=== PATIENT | female | born 1960 | race Caucasian/White ===

== ENCOUNTER 2017-04-20 09:23 | Outpatient (POV) | payer MEDICAID, SELFPAY | END 2017-04-20 13:57 | disposition home or self-care (01) | PROVIDERS: Family Provider Family Medicine; PCP Family Medicine; Visit Provider Podiatrist | DX: M20.42 Other hammer toe(s) (acquired), left foot (principal); M20.41 Other hammer toe(s) (acquired), right foot; L84 Corns and callosities; M20.21 Hallux rigidus, right foot; M20.32 Hallux varus (acquired), left foot; M25.572 Pain in left ankle and joints of left foot; M25.571 Pain in right ankle and joints of right foot | CPT/HCPCS: 99203; 11055; 73630 ==

== ENCOUNTER → 2017-05-08 | Outpatient (POV) | payer MEDICAID, SELFPAY | PROVIDERS: Visit Provider Podiatrist ==

== ENCOUNTER → 2017-06-12 10:15 | Outpatient (POV) | payer MEDICAID, SELFPAY | PROVIDERS: Family Provider Family Medicine; PCP Family Medicine; Visit Provider Podiatrist | DX: Z00.00 Encounter for general adult medical examination without abnormal findings (principal) ==

== ENCOUNTER 2018-10-31 20:59 | Observation (INO) ==
[2018-10-31 21:20] LABS: Basophils # 0.1 K/mm3 (0-0.2); Basophils % 0.9 % (0.1-2.0); Eosinophils # 0.5 K/mm3 (0.0-0.4); Hematocrit 40.4 % (37.0-47.0); Hemoglobin 12.6 g/dL (12.2-16.2); Lymphocytes # 2.4 K/mm3 (0.7-4.5); Lymphocytes % 24.4 % (10-50); Mean Corpuscular HGB Conc 31.2 g/dL (31.8-35.4); Mean Corpuscular Volume 80.1 fl (81-99); Mean Platelet Volume 8.5 fl (7.4-10.4); Monocytes # 0.5 K/mm3 (0.1-1.0); Monocytes % 5.1 % (1.7-9.3); Neutrophils # 6.4 K/mm3 (1.8-7.8); Neutrophils % 64.6 % (37.0-80.0); Platelet Count 244 K/mm3 (142-424); Red Blood Count 5.04 M/mm3 (4.20-5.40); Red Cell Distribution Width 15.1 % (11.5-17.5); White Blood Count 9.9 K/mm3 (4.8-10.8)
[2018-10-31 21:35] LABS: Anion Gap 13.2 mEq/L (5-15); Blood Urea Nitrogen 18 mg/dL (7-18); Calcium 8.8 mg/dL (8.5-10.1); Carbon Dioxide 29 mmol/L (21.0-32.0); Chloride 106 mmol/L (98-107); Glucose 130 mg/dL (74-106); Sodium 144 mmol/L (136-145)
--- NOTE | 2018-10-31 22:12 | Emergency Department Note ---
ED Disposition Clinical Impression: Obesity (BMI 30.0-34.9) Chest pain Qualifiers: Chest pain type: precordial pain Qualified Code(s): R07.2 - Precordial pain Disposition: Admitted as Observation Condition on Discharge: Good Referrals: Provider,Referral, [Referring] - - Critical Care Critical Care Time: No Attestation: On 10/31/18, the high probability of a clinically significant, sudden or life threatening deterioration of the following system(s) required my full and direct attention, intervention and personal management. The time I documented below is in addition to time spent performing reported procedures but includes the following listed in this critical care notation. Medical Decision Making - Medical Records Medical records reviewed: Yes: I reviewed the patient's medical records. - Moose Inquiry Pt receiving controlled substance: No Vital Signs: 10/31/18 20:59 Temperature 98.0 F Temperature Source Oral Pulse Rate [Right Brachial] 90 Respiratory Rate 20 Blood Pressure [Right Arm] 128/62 Blood Pressure Mean [Right Arm] 84 Blood Pressure Source [Right Arm] Automatic Cuff Blood Pressure Position [Right Arm] Sitting 02 Sat by Pulse Oximetry 98 Oxygen Delivery Method Room Air - Lab Data Lab results reviewed: Yes: I reviewed the patient's lab results. Lab Results 10/31/18 21:10: WBC 9.9, RBC 5.04, Hgb 12.6, Hct 40.4, MCV 80.1 L, MCH 25.0 L, MCHC 31.2 L, RDW 15.1, Plt Count 244, MPV 8.5, Neut % (Auto) 64.6, Lymph % (Auto) 24.4, [place] % (Auto) 5.1, Eos % (Auto) 5.0, Baso % (Auto) 0.9, Neut # (Au to) 6.4, Lymph # (Auto) 2.4, [place] # (Auto) 0.5, Eos # (Auto) 0.5 H, Baso # (Auto) 0.1 10/31/18 21:10: Sodium 144, Potassium 4.2, Chloride 106, Carbon Dioxide 29, Anion Gap 13.2, BUN 18, Creatinine 0.85, Estimated Creat Clear 102, Estimated GFR 68, Est GFR ( Amer) 83, Glucose 130 H, Calcium 8.8, Troponin I < 0.02 Result diagrams: 10/31/18 21:10 10/31/18 21:10 Orders (Tests/Meds): ED MEDICATIONS Discontinued Medications Generic Name Dose Route Start Last Admin Trade Name Maricruz PRN Reason Stop Dose Admin Aspirin 324 mg 10/31/18 21:06 10/31/18 21:09 Aspirin 81mg Chewable Tablet PO 10/31/18 21:07 324 mg ONCE ONE Administration ORDERS Category Date Time Status XR chest 2V Stat Exams 10/31/18 21:06 Taken Troponin I Q3H Lab 11/01/18 00:15 Ordered Troponin I Q3H Lab 11/01/18 03:15 Ordered ECG Request by /Aida Stat Y 10/31/18 21:06 Ordered - Radiology Data #1 Image(s): Chest Image Reviewed: Yes I reviewed the patient's radiology image Preliminary Findings: Normal/NAD - ECG Data Tracing #1 Normal Sinus Rhythm: Yes Ischemic changes: non-specific ST-T wave changes - Physician Consults Physician Consulted: nathen Reason -: Admission Chest Pain HPI - General Chief Complaint: Chest Pain Stated Complaint: CP Time Seen by Provider: 10/31/18 21:40 Mode of Arrival: Ambulatory Source of Information: Patient, Relative, Medical Record Limitations: No Limitations Description of Symptoms (Recalled from ER Triage Doc. by RN): Pt c/o cp with neck , jaw and arm pain, and SOA that started about 15 mins ago that lasted about 10 mins. No other symptoms reported at this time. - History of Present Illness HPI narrative: acute onset of chest pain tonight lasted about 45 min with rad to jaw - MD complaint: chest pain indicative of cardiac Onset (ago): hour(s) Duration: now resolved Activity at onset: during rest Pain location: left chest Severity: moderate Quality: tightness Pain radiation: jaw/teeth Risk Factors for CAD: Hypertension, Family Hx of CAD Treatments prior to or on arrival for Cardiac Chest Pain: none - YELENA Score for Non-Stemi Age of Patient: 50-59 years old Heart Rate: 90-109 bpm Systolic Blood Pressure: 120-139 mmhg Serum Creatinine: 0.80-1.19 mg/dl CHF [place] Class: I-No CHF Other Risk Factors: None Non-Stemi Risk Score: 97 - Related Data On Oral Contraceptives: No Home Medications Medication Instructions Recorded Confirmed famotidine 20 mg tablet 20 mg PO QDAY 05/28/17 10/31/18 Venlafaxine HCl [Effexor Xr] 75 mg PO DAILY 10/31/18 10/31/18 Allergies Allergy/AdvReac Type Severity Reaction Status Date / Time No Known Allergies Allergy Unverified 11/10/17 15:52 [facility] History - Hepatitis A Screen Drug use history?: No High risk sexual behaviors?: No History of sexually transmitted infection?: No Currently employed?: No Childcare worker?: No Do you have indoor plumbing?: Yes Do you have electricity?: Yes Attestation statement:: This patient has been screened for Hepatitis A risk factors. I have reviewed the patient's past medical history: Yes Medical History: Reports:: Gastroesophageal Reflux Disease(GERD) Denies:: Aneurysm, Asthma, Atrial Fibrillation, Cancer, Congestive Heart Failure, Chronic Obstructive Pulmonary Disease (COPD), Coronary Artery Disease, Cerebrovascular Accident, Diabetes Mellitus Type 1, Diabetes Mellitus Type 2, Hyperlipidemia, Hypertension, Migraine, Myocardial Infarction Other Medical History: Denies: Arthritis, Cataracts, Glaucoma, Hypothyroidism, Thyroid Disease Laterality Cases: Bilateral: Tonsillectomy Other Surgeries: Yes: Other Amputation: No Fractures: No Comment: eye surgery as a child - Social History Smoking Status: Never smoker Tobacco Type: cigarettes Alcohol Intake: never Alcohol Intake Frequency:: other Occupational Status: employed Housing: house - Psychiatric History Expresses thoughts of harming self/others: None Suicide Plan Description: No Plan Family Hx:: Diabetes, Stroke, Hyperlipidemia, Hypertension ROS Obtained: Yes All systems reviewed & no additional complaints - Constitutional Constitutional: Denies fever(s) - Eyes Eyes: Denies change in vision - ENT Ears, Nose, Mouth, and Throat: Denies sore throat - Cardiovascular Cardiovascular: Reports as per HPI, Reports chest pain, Reports radiating jaw, neck or arm pain, Denies rapid heart rate - Respiratory Respiratory: No cough - Gastrointestinal Gastrointestingal: Denies: abdominal pain - Genitourinary Female Genitourinary: Denies hematuria - Musculoskeletal Musculoskeletal: Denies joint pain - Integumentary/Breasts Skin/Breast: Denies rash - Neurologic Neurologic: Denies seizure-like activity Physical Exam - General General appearance: alert, obese - Head Head exam: normocephalic - Eye Eye exam: Present: PERRL, EOMI. Absent: scleral icterus - ENT ENT exam: Present: mucous membranes moist - Neck Neck exam: Present: trachea midline - Respiratory Respiratory exam: Present: normal lung sounds bilaterally. Absent: respiratory distress - Cardiovascular Cardiovascular exam: Present: regular rate, systolic murmur - Abdominal Exam Abdominal exam: Present: soft - Extremities Exam Extremities exam: Present: full ROM. Absent: calf tenderness - Neurological Exam Neurological exam: Present: alert, oriented X3, CN II-XII intact - Psychiatric Psychiatric exam: Present: normal affect - Skin Skin exam: Absent: rash
[2018-11-01 06:28] LABS: Basophils # 0.1 K/mm3 (0-0.2); Basophils % 0.6 % (0.1-2.0); Eosinophils # 0.5 K/mm3 (0.0-0.4); Eosinophils % 5.3 % (0.1-12.0); Hematocrit 38.4 % (37.0-47.0); Hemoglobin 11.6 g/dL (12.2-16.2); Lymphocytes # 2.1 K/mm3 (0.7-4.5); Lymphocytes % 24.4 % (10-50); Mean Corpuscular HGB Conc 30.3 g/dL (31.8-35.4); Mean Corpuscular Volume 79.6 fl (81-99); Mean Platelet Volume 8.4 fl (7.4-10.4); Monocytes # 0.5 K/mm3 (0.1-1.0); Monocytes % 5.9 % (1.7-9.3); Neutrophils # 5.5 K/mm3 (1.8-7.8); Neutrophils % 63.8 % (37.0-80.0); Platelet Count 220 K/mm3 (142-424); Red Blood Count 4.83 M/mm3 (4.20-5.40); White Blood Count 8.6 K/mm3 (4.8-10.8)
[2018-11-01 07:08] LABS: Anion Gap 10.4 mEq/L (5-15); Calcium 8.2 mg/dL (8.5-10.1); Chol/HDL Ratio 3.1 (1-3.5)
--- NOTE | 2018-11-01 07:26 | Pharmacy Consult Notes ---
[facility] Pharmacy VTE Monitoring - Patient Demographics Admission date: 10/31/18 Report Date: 11/01/18 Time: 07:26 Allergies/Adverse Reactions: Patient Allergies No Known Allergies Allergy (Unverified 11/10/17 15:52) Height: 1.65 m Weight: 94.347 kg Patient Problems: Current Active Problems (Updated 10/31/18 @ 22:21 by Raoul Alonso MD) Chest pain (Acute) Obesity (BMI 30.0-34.9) (Acute) - VTE Risk Labs: VTE Related Lab Results Hgb 11.6 g/dL (12.2-16.2) L 11/01/18 05:45 Hct 38.4 % (37.0-47.0) 11/01/18 05:45 Plt Count 220 K/mm3 (142-424) 11/01/18 05:45 BUN 16 mg/dL (7-18) 11/01/18 05:45 Creatinine 0.64 mg/dL (0.55-1.02) D 11/01/18 05:45 Estimated Creat Clear 141 mL/min (50-200) 11/01/18 05:45 Was VTE Risk Assessment Performed: No VTE Score: 3 VTE Risk Level: Low Risk - Prophylaxis VTE Prophylaxis Ordered?: Yes Types of VTE Prophylaxis: TEDS Knee High Location of Applied Device: Bilateral Lower Extremeties - VTE Diagnosis Confirmed Treatment or plan recommended: Continue Current Treatment
--- NOTE | 2018-11-01 07:35 | Consult Report ---
History of Present Illness Consult date: 11/01/18 Requesting physician: Michelle Head Consult reason: chest pain Chief complaint: chest pain Additional Medical History:: 1. Family history of coronary artery disease in her father at age 60 and his brothers 2. Exertional chest pain with elevated troponins, 10/31/2018 3. GERD History of present illness: 58-year-old white female with history of gastroesophageal reflux disease presented to the emergency department for evaluation of left-sided chest pain with radiation to the jaw and left shoulder. Patient describes jaw pain is like a toothache. Symptoms occurred while out walking her dog or trying to get her dog to come in. In route to the hospital symptoms resolved. ER work-up included EKG with no acute changes and initial troponin that was normal. Nithin moran does relate history of exertional symptoms in the past but not to this degree. She was kept overnight with additional troponins increased and mildly positive. This morning patient describes no further episodes of discomfort overnight except for severe headache. Nitroglycerin paste has been removed with orders for Tylenol to be given. [facility] History Medical History: Reports:: Gastroesophageal Reflux Disease(GERD) Denies:: Aneurysm, Asthma, Atrial Fibrillation, Cancer, Congestive Heart Failure, Chronic Obstructive Pulmonary Disease (COPD), Coronary Artery Disease, Cerebrovascular Accident, Diabetes Mellitus Type 1, Diabetes Mellitus Type 2, Hyperlipidemia, Hypertension, Migraine, MRSA, Myocardial Infarction *Have you ever received a pneumonia vaccine?: No *Have you received a flu vaccine this season?: No Other Medical History: Denies: Arthritis, Cataracts, Glaucoma, Hypothyroidism, Thyroid Disease Laterality Cases: Bilateral: Tonsillectomy Other Surgeries: Yes: Other Amputation: No Fractures: No - *Social History Educational Level: Completed High School Smoking Status: Never smoker Tobacco Type: cigarettes Alcohol Intake: never Alcohol Intake Frequency:: other *Occupational Status:: employed Housing: house *Travel in the last 8 weeks: None - Psychiatric History Expresses thoughts of harming self/others: None Suicide Plan Description: No Plan Family Hx:: Diabetes, Stroke, Hyperlipidemia, Hypertension Meds Home Medications Medication Instructions Recorded Confirmed Type famotidine 20 mg tablet 20 mg PO DAILY 05/28/17 11/01/18 History Venlafaxine HCl [Effexor Xr] 75 mg PO DAILY 10/31/18 10/31/18 History Naproxen 500 mg PO BID 11/01/18 11/01/18 History hydrOXYzine HCl [Hydroxyzine HCl] 25 mg PO HS 11/01/18 11/01/18 History Allergies Allergy/AdvReac Type Severity Reaction Status Date / Time No Known Allergies Allergy Unverified 11/10/17 15:52 Review of Systems - *Cardiovascular Reports chest pain, Denies shortness of breath - *Respiratory Denies shortness of breath - *Gastrointestinal Denies nausea, Denies vomiting - *Genitourinary Denies blood in urine - *Musculoskeletal Denies joint pain, Denies back pain - *Neurologic Denies seizure-like activity Exam Vital signs and Labs for Last 24 Hours: Temp Pulse Resp BP Pulse Ox 97.9 F 68 18 139/80 97 11/01/18 04:00 11/01/18 04:00 11/01/18 04:00 11/01/18 04:00 11/01/18 04:00 Laboratory Results - last 24 hr 10/31/18 21:10: WBC 9.9, RBC 5.04, Hgb 12.6, Hct 40.4, MCV 80.1 L, MCH 25.0 L, MCHC 31.2 L, RDW 15.1, Plt Count 244, MPV 8.5, Neut % (Auto) 64.6, Lymph % (Auto) 24.4, [place] % (Auto) 5.1, Eos % (Auto) 5.0, Baso % (Auto) 0.9, Neut # (Auto) 6.4, Lymph # (Auto) 2.4, [place] # (Auto) 0.5, Eos # (Auto) 0.5 H, Baso # (Auto) 0.1 10/31/18 21:10: Sodium 144, Potassium 4.2, Chloride 106, Carbon Dioxide 29, Anion Gap 13.2, BUN 18, Creatinine 0.85, Estimated Creat Clear 102, Estimated GFR 68, Est GFR ( Amer) 83, Glucose 130 H, Calcium 8.8, Troponin I < 0.02 11/01/18 00:25: Troponin I 0.07 H 11/01/18 03:05: Troponin I 0.09 H 11/01/18 05:45: WBC 8.6, RBC 4.83, Hgb 11.6 L, Hct 38.4, MCV 79.6 L, MCH 24.1 L, MCHC 30.3 L, RDW 15.0, Plt Count 220, MPV 8.4, Neut % (Auto) 63.8, Lymph % (Auto) 24.4, [place] % (Auto) 5.9, Eos % (Auto) 5.3, Baso % (Auto) 0.6, Neut # (Auto) 5.5, Lymph # (Auto) 2.1, [place] # (Auto) 0.5, Eos # (Auto) 0.5 H, Baso # (Auto) 0.1 11/01/18 05:45: Sodium 141, Potassium 4.4, Chloride 108 H, Carbon Dioxide 27, Anion Gap 10.4, BUN 16, Creatinine 0.64 D, Estimated Creat Clear 141, Estimated GFR 95, Est GFR ( Amer) 115 D, Glucose 90 D, Calcium 8.2 L, Magnesium 2.1, Troponin I 0.09 H, Triglycerides 38, Cholesterol 169, LDL Cholesterol 107, VLDL Cholesterol 8, HDL Cholesterol 54, Cholesterol/HDL Ratio 3.1 I & O for Last 24 hours: Intake & Output 10/29/18 10/30/18 10/31/18 11/01/18 11:59 11:59 11:59 11:59 Weight 208 lb - *Routine HEENT Exam Head: Present: normocephalic Eye: Present: EOMI, PERRL ENT: Present: mucous membranes moist - *Routine Neck Exam Present: supple. Absent: JVD, carotid bruit - *Routine Respiratory Exam Present: CTA bilaterally. Absent: accessory muscle use, rales, rhonchi, wheezes - *Routine Cardiovascular Exam Present: RRR. Absent: murmur, gallop, rubs - *Routine Abdominal Exam Present: soft. Absent: tenderness, distended, guarding - *Routine Extremities Exam Absent: edema, calf tenderness - *Routine Neurological Exam Present: alert, oriented X3, moving all extremities Assessment and Plan (1) Chest pain Current visit: Yes Status: Acute Qualifiers: Chest pain type: precordial pain Qualified Code(s): R07.2 - Precordial pain Category: Medical Code(s): R07.9 - Chest pain, unspecified (2) Family history of early CAD Current visit: Yes Status: Acute Category: Medical Code(s): Z82.49 - Family history of ischemic heart disease and other diseases of the circulatory system (3) Elevated troponin Current visit: Yes Status: Acute Category: Medical Code(s): R74.8 - Abnormal levels of other serum enzymes (4) Obesity (BMI 30.0-34.9) Current visit: Yes Status: Acute Category: Medical Code(s): E66.9 - Obesity, unspecified - Assessment and plan all Dx Assessment and Plan for all problems:: 1. In patient with elevated troponins, exertional angina symptoms that resolve with rest and family history of early coronary artery disease, would recommend proceeding with left heart catheterization today. Patient discussed her options with Dr. Head and they have decided to proceed with [facility]. 2. Echocardiogram has been performed this morning with results pending at this time. 3. Recommend aspirin 81 mg daily along with low-dose beta-angelina therapy for antianginal effect.
--- NOTE | 2018-11-01 09:48 | History & Physical Report ---
*Admission Date: 10/31/18 *Chief complaint: Chest pain *History of present illness: Ms. Bates is a 58-year-old female with a history of GERD and depression who presented to [facility] emergency room after experiencing a burning-like left sided chest pain, jaw and left arm pain when walking her dog. She states she had some shortness of breath. The pain lasted about 15 minutes and was resolved on the way to the emergency room. With evaluation in the emergency room she had some ST-T wave changes and was admitted for further evaluation and treatment with a cardiology consult. This a.m. patient denies chest discomfort and is mainly complaining of a headache which she attributes to the Nitropaste. She feels her breathing is satisfactory. She denies palpitations. She has occasional leg edema. She has been seen by cardiology and a heart cath is planned. [facility] History Medical History: Reports:: Depression, Gastroesophageal Reflux Disease(GERD) Denies:: Aneurysm, Asthma, Atrial Fibrillation, Cancer, Congestive Heart Failure, Chronic Obstructive Pulmonary Disease (COPD), Coronary Artery Disease, Cerebrovascular Accident, Diabetes Mellitus Type 1, Diabetes Mellitus Type 2, Hyperlipidemia, Hypertension, Migraine, MRSA, Myocardial Infarction *Have you ever received a pneumonia vaccine?: No *Have you received a flu vaccine this season?: No Other Medical History: Denies: Arthritis, Cataracts, Glaucoma, Hypothyroidism, Thyroid Disease Laterality Cases: Bilateral: Tonsillectomy Other Surgeries: Yes: Other Amputation: No Fractures: No - *Social History Educational Level: Completed High School Smoking Status: Never smoker Alcohol Intake: never Alcohol Intake Frequency:: other *Occupational Status:: employed Housing: house *Travel in the last 8 weeks: None - Psychiatric History Expresses thoughts of harming self/others: None Suicide Plan Description: No Plan Family Hx:: Diabetes, Stroke, Hyperlipidemia, Hypertension Review of Systems - Constitutional Reports headache(s), Denies body ache(s), Denies fever(s) - Eyes Denies change in vision - ENT Reports facial pain (Left jaw), Denies ear pain, Denies sore throat - *Cardiovascular Reports chest pain, Reports shortness of breath, Reports leg swelling, Reports radiating jaw, neck or arm pain, Denies irregular heart rhythm - *Respiratory Reports shortness of breath, Denies chest congestion, Denies cough, Denies coughing up blood, Denies wheezing - *Gastrointestinal Reports nausea, Denies abdominal pain, Denies vomiting - *Genitourinary Denies difficulty urinating - *Musculoskeletal Reports joint pain (Right shoulder), Denies abnormal walking, Denies muscle weakness - *Neurologic Reports headache(s), Denies seizure-like activity Meds Home Medications Medication Instructions Recorded Confirmed Type famotidine 20 mg tablet 20 mg PO QID 05/28/17 11/01/18 History Venlafaxine HCl [Effexor Xr] 75 mg PO DAILY 10/31/18 10/31/18 History Mupirocin [Bactroban 2% Ointment 1 applicatio TP TID 11/01/18 11/01/18 History 22gm tube] Naproxen 500 mg PO BID 11/01/18 11/01/18 History hydrOXYzine HCl [Hydroxyzine HCl] 25 mg PO HS 11/01/18 11/01/18 History Allergies Allergy/AdvReac Type Severity Reaction Status Date / Time No Known Allergies Allergy Unverified 11/10/17 15:52 Exam Vital signs and Labs for Last 24 Hours: Temp Pulse Resp BP Pulse Ox 97.6 F 69 18 146/89 H 98 11/01/18 08:00 11/01/18 08:00 11/01/18 08:00 11/01/18 08:00 11/01/18 08:49 Laboratory Results - last 24 hr 10/31/18 21:10: WBC 9.9, RBC 5.04, Hgb 12.6, Hct 40.4, MCV 80.1 L, MCH 25.0 L, MCHC 31.2 L, RDW 15.1, Plt Count 244, MPV 8.5, Neut % (Auto) 64.6, Lymph % (Auto) 24.4, [place] % (Auto) 5.1, Eos % (Auto) 5.0, Baso % (Auto) 0.9, Neut # (Auto) 6.4, Lymph # (Auto) 2.4, [place] # (Auto) 0.5, Eos # (Auto) 0.5 H, Baso # (Auto) 0.1 10/31/18 21:10: Sodium 144, Potassium 4.2, Chloride 106, Carbon Dioxide 29, Anion Gap 13.2, BUN 18, Creatinine 0.85, Estimated Creat Clear 102, Estimated GFR 68, Est GFR ( Amer) 83, Glucose 130 H, Calcium 8.8, Troponin I < 0.02 11/01/18 00:25: Troponin I 0.07 H 11/01/18 03:05: Troponin I 0.09 H 11/01/18 05:45: WBC 8.6, RBC 4.83, Hgb 11.6 L, Hct 38.4, MCV 79.6 L, MCH 24.1 L, MCHC 30.3 L, RDW 15.0, Plt Count 220, MPV 8.4, Neut % (Auto) 63.8, Lymph % (Auto) 24.4, [place] % (Auto) 5.9, Eos % (Auto) 5.3, Baso % (Auto) 0.6, Neut # (Auto) 5.5, Lymph # (Auto) 2.1, [place] # (Auto) 0.5, Eos # (Auto) 0.5 H, Baso # (Auto) 0.1 11/01/18 05:45: Sodium 141, Potassium 4.4, Chloride 108 H, Carbon Dioxide 27, Anion Gap 10.4, BUN 16, Creatinine 0.64 D, Estimated Creat Clear 141, Estimated GFR 95, Est GFR ( Amer) 115 D, Glucose 90 D, Calcium 8.2 L, Magnesium 2.1, Troponin I 0.09 H, Triglycerides 38, Cholesterol 169, LDL Cholesterol 107, VLDL Cholesterol 8, HDL Cholesterol 54, Cholesterol/HDL Ratio 3.1 11/01/18 09:25: Urine HCG, Qual Negative I & O for Last 24 hours: Intake & Output 10/29/18 10/30/18 10/31/18 11/01/18 11:59 11:59 11:59 11:59 Intake Total 0 / 0 Balance 0 / 0 Weight 208 lb Radiology Reports for the Last 24 Hours: 10/31/2018 chest x-ray IMPRESSION: 1. Stones and sludge within the gallbladder with thickened wall. 2. Complex right renal cyst measuring 15 mm with calcification or stone along the posterior aspect of the cyst - Constitutional no acute distress Comments: Appears uncomfortable due to headache - *Routine HEENT Exam Head: Present: normocephalic, atraumatic Eye: Present: PERRL ENT: Present: mucous membranes moist, oropharynx clear - *Routine Neck Exam Present: supple. Absent: carotid bruit, lymphadenopathy, thyromegaly - *Routine Respiratory Exam Present: CTA bilaterally (Anteriorly and posteriorly) - *Routine Cardiovascular Exam Present: RRR - *Routine Abdominal Exam Present: soft, normoactive bowel sounds. Absent: tenderness - *Routine Extremities Exam Absent: edema, calf tenderness - *Routine Neurological Exam Present: alert, oriented X3 Assessment and Plan (1) Chest pain Current visit: Yes Status: Acute Qualifiers: Chest pain type: precordial pain Qualified Code(s): R07.2 - Precordial pain Category: Medical Code(s): R07.9 - Chest pain, unspecified (2) Family history of early CAD Current visit: Yes Status: Acute Category: Medical Code(s): Z82.49 - Family history of ischemic heart disease and other diseases of the circulatory system (3) Elevated troponin Current visit: Yes Status: Acute Category: Medical Code(s): R74.8 - Abnormal levels of other serum enzymes (4) Obesity (BMI 30.0-34.9) Current visit: Yes Status: Acute Category: Medical Code(s): E66.9 - Obesity, unspecified (5) GERD (gastroesophageal reflux disease) Current visit: Yes Status: Chronic Category: Medical Code(s): K21.9 - Gastro-esophageal reflux disease without esophagitis (6) Depression Current visit: Yes Status: Chronic Category: Medical Code(s): F32.9 - Major depressive disorder, single episode, unspecified - Assessment and plan all Dx Assessment and Plan for all problems:: Patient has been seen by cardiology this a.m. and will have a cardiac cath
--- NOTE | 2018-11-01 13:58 | History & Physical Report ---
*Admission Date: 10/31/18 *History of present illness: Ms. Bates is a 58-year-old female with a history of GERD and depression who pre sented to [facility] emergency room after experiencing a burning-like chest pain, jaw and left arm pain when walking her dog. She states she had some shortness of breath. The pain lasted about 15 minutes and was resolved on the way to the emergency room. With evaluation in the emergency room she had some ST-T wave changes and was admitted for further evaluation and treatment with a cardiology consult. This a.m. patient denies chest discomfort and is mainly complaining of a headache which she attributes to the Nitropaste. She feels her breathing is satisfactory. She denies palpitations. She has occasional leg edema. [facility] History Medical History: Reports:: Gastroesophageal Reflux Disease(GERD) Denies:: Aneurysm, Asthma, Atrial Fibrillation, Cancer, Congestive Heart Failure, Chronic Obstructive Pulmonary Disease (COPD), Coronary Artery Disease, Cerebrovascular Accident, Diabetes Mellitus Type 1, Diabetes Mellitus Type 2, Hyperlipidemia, Hypertension, Migraine, MRSA, Myocardial Infarction *Have you ever received a pneumonia vaccine?: No *Have you received a flu vaccine this season?: No Other Medical History: Denies: Arthritis, Cataracts, Glaucoma, Hypothyroidism, Thyroid Disease Laterality Cases: Bilateral: Tonsillectomy Other Surgeries: Yes: Other Amputation: No Fractures: No - *Social History Educational Level: Completed High School Smoking Status: Never smoker Tobacco Type: cigarettes Alcohol Intake: never Alcohol Intake Frequency:: other *Occupational Status:: employed Housing: house *Travel in the last 8 weeks: None - Psychiatric History Expresses thoughts of harming self/others: None Suicide Plan Description: No Plan Family Hx:: Diabetes, Stroke, Hyperlipidemia, Hypertension Review of Systems - *Neurologic Denies seizure-like activity Meds Home Medications Medication Instructions Recorded Confirmed Type famotidine 20 mg tablet 20 mg PO QID 05/28/17 11/01/18 History Venlafaxine HCl [Effexor Xr] 75 mg PO DAILY 10/31/18 10/31/18 History Mupirocin [Bactroban 2% Ointment 1 applicatio TP TID 11/01/18 11/01/18 History 22gm tube] Naproxen 500 mg PO BID 11/01/18 11/01/18 History hydrOXYzine HCl [Hydroxyzine HCl] 25 mg PO HS 11/01/18 11/01/18 History Allergies Allergy/AdvReac Type Severity Reaction Status Date / Time No Known Allergies Allergy Unverified 11/10/17 15:52 Exam Vital signs and Labs for Last 24 Hours: Temp Pulse Resp BP Pulse Ox 97.6 F 104 H 22 129/54 L 99 11/01/18 08:00 11/01/18 13:25 11/01/18 13:25 11/01/18 13:25 11/01/18 13:25 Laboratory Results - last 24 hr 10/31/18 21:10: WBC 9.9, RBC 5.04, Hgb 12.6, Hct 40.4, MCV 80.1 L, MCH 25.0 L, MCHC 31.2 L, RDW 15.1, Plt Count 244, MPV 8.5, Neut % (Auto) 64.6, Lymph % (Auto) 24.4, [place] % (Auto) 5.1, Eos % (Auto) 5.0, Baso % (Auto) 0.9, Neut # (Auto) 6.4, Lymph # (Auto) 2.4, [place] # (Auto) 0.5, Eos # (Auto) 0.5 H, Baso # (Auto) 0.1 10/31/18 21:10: Sodium 144, Potassium 4.2, Chloride 106, Carbon Dioxide 29, Anion Gap 13.2, BUN 18, Creatinine 0.85, Estimated Creat Clear 102, Estimated GFR 68, Est GFR ( Amer) 83, Glucose 130 H, Calcium 8.8, Troponin I < 0.02 11/01/18 00:25: Troponin I 0.07 H 11/01/18 03:05: Troponin I 0.09 H 11/01/18 05:45: WBC 8.6, RBC 4.83, Hgb 11.6 L, Hct 38.4, MCV 79.6 L, MCH 24.1 L, MCHC 30.3 L, RDW 15.0, Plt Count 220, MPV 8.4, Neut % (Auto) 63.8, Lymph % (Auto) 24.4, [place] % (Auto) 5.9, Eos % (Auto) 5.3, Baso % (Auto) 0.6, Neut # (Auto) 5.5, Lymph # (Auto) 2.1, [place] # (Auto) 0.5, Eos # (Auto) 0.5 H, Baso # (Auto) 0.1 11/01/18 05:45: Sodium 141, Potassium 4.4, Chloride 108 H, Carbon Dioxide 27, Anion Gap 10.4, BUN 16, Creatinine 0.64 D, Estimated Creat Clear 141, Estimated GFR 95, Est GFR ( Amer) 115 D, Glucose 90 D, Calcium 8.2 L, Magnesium 2.1, Troponin I 0.09 H, Triglycerides 38, Cholesterol 169, LDL Cholesterol 107, VLDL Cholesterol 8, HDL Cholesterol 54, Cholesterol/HDL Ratio 3.1 11/01/18 09:25: Urine HCG, Qual Negative 11/01/18 11:55: Activated Clotting Time > 400 H* I & O for Last 24 hours: Intake & Output 10/30/18 10/31/18 11/01/18 11/02/18 11:59 11:59 11:59 11:59 Intake Total 0 / 0 Balance 0 / 0 Weight 208 lb Assessment and Plan (1) Chest pain Current visit: Yes Status: Acute Qualifiers: Chest pain type: precordial pain Qualified Code(s): R07.2 - Precordial pain Category: Medical Code(s): R07.9 - Chest pain, unspecified (2) Family history of early CAD Current visit: Yes Status: Acute Category: Medical Code(s): Z82.49 - Family history of ischemic heart disease and other diseases of the circulatory system (3) Elevated troponin Current visit: Yes Status: Acute Category: Medical Code(s): R74.8 - Abnormal levels of other serum enzymes (4) Obesity (BMI 30.0-34.9) Current visit: Yes Status: Acute Category: Medical Code(s): E66.9 - Obesity, unspecified
--- NOTE | 2018-11-01 18:13 | Progress Note ---
Internal Medicine - PN: Subj *Date: 11/01/18 *Time: 18:12 Interval history: See catheter report. One drug-eluting stent to the proximal LAD reducing 90% stenosis to 0% stenosis. The patient is stable post procedure. Exam Vital signs and Labs for Last 24 Hours: Temp Pulse Resp BP Pulse Ox 97.6 F 74 18 147/98 H 99 11/01/18 08:00 11/01/18 17:00 11/01/18 17:00 11/01/18 17:00 11/01/18 17:00 Laboratory Results - last 24 hr 10/31/18 21:10: WBC 9.9, RBC 5.04, Hgb 12.6, Hct 40.4, MCV 80.1 L, MCH 25.0 L, MCHC 31.2 L, RDW 15.1, Plt Count 244, MPV 8.5, Neut % (Auto) 64.6, Lymph % (Auto) 24.4, [place] % (Auto) 5.1, Eos % (Auto) 5.0, Baso % (Auto) 0.9, Neut # (Auto) 6.4, Lymph # (Auto) 2.4, [place] # (Auto) 0.5, Eos # (Auto) 0.5 H, Baso # (Auto) 0.1 10/31/18 21:10: Sodium 144, Potassium 4.2, Chloride 106, Carbon Dioxide 29, Anion Gap 13.2, BUN 18, Creatinine 0.85, Estimated Creat Clear 102, Estimated GFR 68, Est GFR ( Amer) 83, Glucose 130 H, Calcium 8.8, Troponin I < 0.02 11/01/18 00:25: Troponin I 0.07 H 11/01/18 03:05: Troponin I 0.09 H 11/01/18 05:45: WBC 8.6, RBC 4.83, Hgb 11.6 L, Hct 38.4, MCV 79.6 L, MCH 24.1 L, MCHC 30.3 L, RDW 15.0, Plt Count 220, MPV 8.4, Neut % (Auto) 63.8, Lymph % (Auto) 24.4, [place] % (Auto) 5.9, Eos % (Auto) 5.3, Baso % (Auto) 0.6, Neut # (Auto) 5.5, Lymph # (Auto) 2.1, [place] # (Auto) 0.5, Eos # (Auto) 0.5 H, Baso # (Auto) 0.1 11/01/18 05:45: Sodium 141, Potassium 4.4, Chloride 108 H, Carbon Dioxide 27, Anion Gap 10.4, BUN 16, Creatinine 0.64 D, Estimated Creat Clear 141, Estimated GFR 95, Est GFR ( Amer) 115 D, Glucose 90 D, Calcium 8.2 L, Magnesium 2.1, Troponin I 0.09 H, Triglycerides 38, Cholesterol 169, LDL Cholesterol 107, VLDL Cholesterol 8, HDL Cholesterol 54, Cholesterol/HDL Ratio 3.1 11/01/18 09:25: Urine HCG, Qual Negative 11/01/18 11:55: Activated Clotting Time > 400 H* I & O for Last 24 hours: Intake & Output 10/30/18 10/31/18 11/01/18 11/02/18 11:59 11:59 11:59 11:59 Intake Total 0 / 0 660 / 660 Balance 0 / 0 660 / 660 Weight 208 lb 207 lb 15.992 oz Assessment and Plan (1) Coronary artery disease Current visit: Yes Status: Acute Category: Medical Code(s): I25.10 - Atherosclerotic heart disease of [place] coronary artery without angina pectoris (2) Chest pain Current visit: Yes Status: Acute Qualifiers: Chest pain type: precordial pain Qualified Code(s): R07.2 - Precordial pain Category: Medical Code(s): R07.9 - Chest pain, unspecified (3) Family history of early CAD Current visit: Yes Status: Acute Category: Medical Code(s): Z82.49 - Family history of ischemic heart disease and other diseases of the circulatory system (4) Elevated troponin Current visit: Yes Status: Acute Category: Medical Code(s): R74.8 - Abnormal levels of other serum enzymes (5) Obesity (BMI 30.0-34.9) Current visit: Yes Status: Acute Category: Medical Code(s): E66.9 - Obesity, unspecified (6) GERD (gastroesophageal reflux disease) Current visit: Yes Status: Chronic Category: Medical Code(s): K21.9 - Gastro-esophageal reflux disease without esophagitis (7) Depression Current visit: Yes Status: Chronic Category: Medical Code(s): F32.9 - Major depressive disorder, single episode, unspecified
--- NOTE | 2018-11-01 21:27 | Cardiology Report ---
PROCEDURE: 2-D M-mode and color Doppler study INDICATIONS FOR THE TEST: Chest pain + COPD Heart Murmur Tobacco Smoking Palpitations Fatigue Syncope Edema Hypertension Diabetes Mellitus Rheumatic Fever SOB+CASH Obesity+Hyperlipidemia Family History HD Additional History GERD PATIENT INFORMATION HEIGHT:65 WEIGHT:200 GENDER: Female B/P:128/62 2-D/M-MODE INTERPRETATION: 2-D MEASUREMENTS OBSERVED VALUES IN CMS Right Ventricular Dimension (RVDd) 2.3 Interventricular Septum (Thickness)(IVsd) 0.8 Left Ventricular Internal Dimensions(LVIDd) 5.8 Left Ventricular Posterior Wall (Thickness)(LVPWd) 1.0 Aortic Root 3.2 Aortic Cusp Separation 2.0 Left Atrial Dimensions (LAD) 4.2 2D 1. Left Atrium is mildly enlarged, left ventricle is normal size, mild concentric left ventricular hypertrophy, visually estimated ejection fraction 55% with no regional wall motion abnormality. 2. The right atrium and right ventricle are normal size and contractility. 3. The aortic valve is minimally thickened and fibrosed. 4. The mitral and tricuspid valve leaflets are minimally thickened. 5. The pulmonic valve is poorly visualized. 6. No significant pericardial effusion noted. DOPPLER INTERROGATION: Doppler interrogation of the aortic, mitral and tricuspid valvular presence of mild mitral, mild aortic and tricuspid regurgitation, tricuspid regurgitation jet velocity is inadequate for calculation of the right ventricular systolic pressure, grade 1 diastolic dysfunction seen without tissue Doppler evidence of raised left atrial pressure. CONCLUSION: 1. Mildly enlarged left atrium, normal left ventricular size, mild concentric left ventricular hypertrophy, visually estimated ejection fraction 55% with no regional wall motion abnormality, grade 1 diastolic dysfunction seen without tissue Doppler evidence of raised left atrial pressure. 2. Mild aortic, mild mitral and tricuspid regurgitation 3. No significant pericardial effusion noted.
[2018-11-02 06:25] LABS: Basophils # 0.1 K/mm3 (0-0.2); Basophils % 0.8 % (0.1-2.0); Eosinophils # 0.3 K/mm3 (0.0-0.4); Eosinophils % 4.3 % (0.1-12.0); Hematocrit 42.1 % (37.0-47.0); Lymphocytes # 1.8 K/mm3 (0.7-4.5); Lymphocytes % 23.3 % (10-50); Mean Corpuscular HGB Conc 30.8 g/dL (31.8-35.4); Mean Corpuscular Volume 79.6 fl (81-99); Mean Platelet Volume 8.4 fl (7.4-10.4); Monocytes # 0.5 K/mm3 (0.1-1.0); Monocytes % 6.6 % (1.7-9.3); Neutrophils # 5.1 K/mm3 (1.8-7.8); Neutrophils % 64.9 % (37.0-80.0); Platelet Count 227 K/mm3 (142-424); Red Blood Count 5.29 M/mm3 (4.20-5.40); White Blood Count 7.9 K/mm3 (4.8-10.8)
[2018-11-02 06:43] LABS: Anion Gap 11.3 mEq/L (5-15); Calcium 8.7 mg/dL (8.5-10.1)
--- NOTE | 2018-11-02 08:22 | Progress Note ---
Subjective Date: 11/02/18 Time: 08:21 Principal diagnosis: NSTEMI Interval history: 58-year-old white female in bed in no acute distress. Denies any chest pain, pressure or tightness. She is ready to go home. Exam Vital signs and Labs for Last 24 Hours: Temp Pulse Resp BP Pulse Ox 97.7 F 94 H 19 139/82 95 11/02/18 07:51 11/02/18 08:13 11/02/18 08:13 11/02/18 08:13 11/02/18 08:13 Laboratory Results - last 24 hr 11/01/18 09:25: Urine HCG, Qual Negative 11/01/18 11:55: Activated Clotting Time > 400 H* 11/02/18 05:49: WBC 7.9, RBC 5.29, Hgb 13.0, Hct 42.1, MCV 79.6 L, MCH 24.5 L, MCHC 30.8 L, RDW 15.0, Plt Count 227, MPV 8.4, Neut % (Auto) 64.9, Lymph % (Auto) 23.3, [place] % (Auto) 6.6, Eos % (Auto) 4.3, Baso % (Auto) 0.8, Neut # (Auto) 5.1, Lymph # (Auto) 1.8, [place] # (Auto) 0.5, Eos # (Auto) 0.3, Baso # (Auto) 0.1 11/02/18 05:49: Sodium 141, Potassium 4.3, Chloride 106, Carbon Dioxide 28, Anion Gap 11.3, BUN 13, Creatinine 0.71, Estimated Creat Clear 117, Estimated GFR 84, Est GFR ( Amer) 102, Glucose 93, Calcium 8.7 I & O for Last 24 hours: Intake & Output 10/30/18 10/31/18 11/01/18 11/02/18 11:59 11:59 11:59 11:59 Intake Total 0 / 0 1020 / 1020 Balance 0 / 0 1020 / 1020 Weight 208 lb 192 lb 2 oz - *Routine HEENT Exam Head: Present: normocephalic Eye: Present: EOMI, PERRL ENT: Present: mucous membranes moist - *Routine Respiratory Exam Present: CTA bilaterally. Absent: accessory muscle use, rales, rhonchi, wheezes - *Routine Cardiovascular Exam Present: RRR. Absent: murmur, gallop, rubs - *Routine Extremities Exam Absent: edema, calf tenderness - *Routine Neurological Exam Present: alert, oriented X3, moving all extremities Progress Note: A&P (1) Coronary artery disease Status: Acute Current Visit: Yes (2) Chest pain Status: Acute Current Visit: Yes (3) Family history of early CAD Status: Acute Current Visit: Yes (4) Elevated troponin Status: Acute Current Visit: Yes (5) Obesity (BMI 30.0-34.9) Status: Acute Current Visit: Yes (6) GERD (gastroesophageal reflux disease) Status: Chronic Current Visit: Yes (7) Depression Status: Chronic Current Visit: Yes Assessment and Plan for All Diagnoses:: 1. Stable from a cardiac standpoint for discharge home. 2. Home medications to include Aspirin 81 mg daily Brilinta 90 mg twice daily Metoprolol XL 25 mg daily Avapro 75 mg daily Atorvastatin 40 mg daily 3. Patient should follow-up in our office in 1 week
--- NOTE | 2018-11-02 09:14 | Progress Note ---
Internal Medicine - PN: Subj *Date: 11/02/18 *Time: 09:16 Interval history: This a.m. patient denies chest pain and shortness of breath. She did sleep some during the night. She is eating without difficulty. Ambulating in the room without problems. She is ready to go home. Exam Vital signs and Labs for Last 24 Hours: Temp Pulse Resp BP Pulse Ox 97.7 F 94 H 19 139/82 95 11/02/18 07:51 11/02/18 08:13 11/02/18 08:13 11/02/18 08:13 11/02/18 08:13 Laboratory Results - last 24 hr 11/01/18 09:25: Urine HCG, Qual Negative 11/01/18 11:55: Activated Clotting Time > 400 H* 11/02/18 05:49: WBC 7.9, RBC 5.29, Hgb 13.0, Hct 42.1, MCV 79.6 L, MCH 24.5 L, MCHC 30.8 L, RDW 15.0, Plt Count 227, MPV 8.4, Neut % (Auto) 64.9, Lymph % (Auto) 23.3, [place] % (Auto) 6.6, Eos % (Auto) 4.3, Baso % (Auto) 0.8, Neut # (Auto) 5.1, Lymph # (Auto) 1.8, [place] # (Auto) 0.5, Eos # (Auto) 0.3, Baso # (Auto) 0.1 11/02/18 05:49: Sodium 141, Potassium 4.3, Chloride 106, Carbon Dioxide 28, Anion Gap 11.3, BUN 13, Creatinine 0.71, Estimated Creat Clear 117, Estimated GFR 84, Est GFR ( Amer) 102, Glucose 93, Calcium 8.7 I & O for Last 24 hours: Intake & Output 10/30/18 10/31/18 11/01/18 11/02/18 11:59 11:59 11:59 11:59 Intake Total 0 / 0 1020 / 1020 Balance 0 / 0 1020 / 1020 Weight 208 lb 192 lb 2 oz Radiology Reports for the Last 24 Hours: Echocardiogram 11/01/2018 CONCLUSION: 1. Mildly enlarged left atrium, normal left ventricular size, mild concentric left ventricular hypertrophy, visually estimated ejection fraction 55% with no regional wall motion abnormality, grade 1 diastolic dysfunction seen without tissue Doppler evidence of raised left atrial pressure. 2. Mild aortic, mild mitral and tricuspid regurgitation 3. No significant pericardial effusion noted. Cardiac cath 11/01/2018 IMPRESSION: 1. Critical proximal LAD disease 2. Normal ejection fraction 3. Normal left ventricular end-diastolic pressure - Constitutional no acute distress - *Routine Respiratory Exam Present: CTA bilaterally (Anteriorly and posteriorly) - *Routine Cardiovascular Exam Present: RRR - *Routine Abdominal Exam Present: soft, normoactive bowel sounds. Absent: tenderness - *Routine Extremities Exam Absent: edema, calf tenderness Comments: JOSE house on - *Routine Neurological Exam Present: alert, oriented X3 Assessment and Plan (1) Coronary artery disease Current visit: Yes Status: Acute Category: Medical Code(s): I25.10 - Atherosclerotic heart disease of [place] coronary artery without angina pectoris (2) Chest pain Current visit: Yes Status: Acute Qualifiers: Chest pain type: precordial pain Qualified Code(s): R07.2 - Precordial pain Category: Medical Code(s): R07.9 - Chest pain, unspecified (3) Family history of early CAD Current visit: Yes Status: Acute Category: Medical Code(s): Z82.49 - Family history of ischemic heart disease and other diseases of the circulatory system (4) Elevated troponin Current visit: Yes Status: Acute Category: Medical Code(s): R74.8 - Abnormal levels of other serum enzymes (5) Obesity (BMI 30.0-34.9) Current visit: Yes Status: Acute Category: Medical Code(s): E66.9 - Obesity, unspecified (6) GERD (gastroesophageal reflux disease) Current visit: Yes Status: Chronic Category: Medical Code(s): K21.9 - Gastro-esophageal reflux disease without esophagitis (7) Depression Current visit: Yes Status: Chronic Category: Medical Code(s): F32.9 - Major depressive disorder, single episode, unspecified (8) S/P coronary artery stent placement Current visit: Yes Status: Acute Category: Surgical Code(s): Z95.5 - Presence of coronary angioplasty implant and graft - Assessment and plan all Dx Assessment and Plan for all problems:: See cardiology note. Patient is stable for discharge
--- NOTE | 2018-11-02 22:16 | Discharge Summary ---
General - General Admission date:: 10/31/18 Discharge date: 11/02/18 HPI HPI: Ms. Bates is a 58-year-old female with a history of GERD and depression who presented to [facility] emergency room after experiencing a burning-like left sided chest pain, jaw and left arm pain when walking her dog. She states she had some shortness of breath. The pain lasted about 15 minutes and was resolved on the way to the emergency room. With evaluation in the emergency room she had some ST-T wave changes and was admitted for further evaluation and treatment with a cardiology consult. This a.m. patient denies chest discomfort and is mainly complaining of a headache which she attributes to the Nitropaste. She feels her breathing is satisfactory. She denies palpitations. She has occasional leg edema. She has been seen by cardiology and a heart cath is planned. Hospital Course Hospital Course: Her chest x-ray showed nothing acute. Cardiology saw the patient and recommended a left heart catheterization. The patient had a heart cath which showed critical proximal LAD disease with a normal ejection fraction. A stent was placed and she was started on Brilinta and aspirin. She was stable post- procedure. Cardiology felt she could be discharged home on aspirin 81 mg daily, Brilinta 90 mg twice daily, metoprolol XL 25 mg daily, Avapro 75 mg daily, and atorvastatin 40 mg daily. They wanted her to follow-up in their office in 1 week. She had no further chest pain or shortness of breath. She was eating and ambulating without difficulty and was stable to be discharged home. Her echo d id show an EF of 55% with grade 1 diastolic dysfunction. She was stable for discharge. Objective Vital signs: Temp Pulse Resp BP Pulse Ox 97.7 F 94 H 19 139/82 95 11/02/18 07:51 11/02/18 08:13 11/02/18 08:13 11/02/18 08:13 11/02/18 08:13 Narrative: - Constitutional no acute distress Comments: Appears uncomfortable due to headache - *Routine HEENT Exam Head: Present: normocephalic, atraumatic Eye: Present: PERRL ENT: Present: mucous membranes moist, oropharynx clear - *Routine Neck Exam Present: supple. Absent: carotid bruit, lymphadenopathy, thyromegaly - *Routine Respiratory Exam Present: CTA bilaterally (Anteriorly and posteriorly) - *Routine Cardiovascular Exam Present: RRR - *Routine Abdominal Exam Present: soft, normoactive bowel sounds. Absent: tenderness - *Routine Extremities Exam Absent: edema, calf tenderness - *Routine Neurological Exam Present: alert, oriented X3 Results Labs on day of discharge: Labs from last 24 hours 11/02/18 11/02/18 05:49 05:49 WBC 7.9 RBC 5.29 Hgb 13.0 Hct 42.1 MCV 79.6 L MCH 24.5 L MCHC 30.8 L RDW 15.0 Plt Count 227 MPV 8.4 Neut % (Auto) 64.9 Lymph % (Auto) 23.3 [place] % (Auto) 6.6 Eos % (Auto) 4.3 Baso % (Auto) 0.8 Neut # (Auto) 5.1 Lymph # (Auto) 1.8 [place] # (Auto) 0.5 Eos # (Auto) 0.3 Baso # (Auto) 0.1 Sodium 141 Potassium 4.3 Chloride 106 Carbon Dioxide 28 Anion Gap 11.3 BUN 13 Creatinine 0.71 Estimated Creat Clear 117 Estimated GFR 84 Est GFR ( Amer) 102 Glucose 93 Calcium 8.7 DS: Diagnosis - Discharge Diagnosis (1) Coronary artery disease Status: Acute (2) Chest pain Status: Acute (3) Family history of early CAD Status: Acute (4) Elevated troponin Status: Acute (5) Obesity (BMI 30.0-34.9) Status: Acute (6) GERD (gastroesophageal reflux disease) Status: Chronic (7) Depression Status: Chronic (8) S/P coronary artery stent placement Status: Acute Discharge Plan - Patient Discharge Instructions ACTIVITY: Limited activity DIET: low fat, low cholesterol Patient Instructions: Angina, Cardiac Catheterization, Heart-Healthy Diet, DI for Cardiac Catheterization, DI for Surgical Site Infection, Surgical Site Infection, Anticoagulation Care - Follow up Plan Follow up with: Michelle Head MD [Staff Physician] - 11/09/18 Unknown provider or service follow up:: 11/02/18 09:03 Cardiology follow-up. Disposition: Home, Self-Group Home Medications: Home Medications Medication Instructions Recorded Confirmed Type famotidine 20 mg tablet 20 mg PO QID 05/28/17 11/01/18 History Venlafaxine HCl [Effexor Xr] 75 mg PO DAILY 10/31/18 10/31/18 History Mupirocin [Bactroban 2% Ointment 1 applicatio TP TID 11/01/18 11/01/18 History 22gm tube] hydrOXYzine HCl [Hydroxyzine HCl] 25 mg PO HS 11/01/18 11/01/18 History Aspirin [Aspirin 81mg chewable 81 mg PO DAILY tab.chew 11/02/18 Rx tab] Atorvastatin Calcium [Lipitor 40mg 40 mg PO HS #30 tab 11/02/18 Rx Tablet] Irbesartan [Avapro 75mg 75 mg PO DAILY #30 tab 11/02/18 Rx tablet] Metoprolol Succinate [Toprol XL 25 mg PO DAILY #30 tab.er.24h 11/02/18 Rx 25mg tablet] Ticagrelor [Brilinta 90mg Tablet] 90 mg PO BID #60 tab 11/02/18 Rx Prescriptions/Medication Reconciliation: New Ticagrelor [Brilinta 90mg Tablet] 90 mg PO BID #60 tab Atorvastatin Calcium [Lipitor 40mg Tablet] 40 mg PO HS #30 tab Metoprolol Succinate [Toprol XL 25mg tablet] 25 mg PO DAILY #30 tab.er.24h Aspirin [Aspirin 81mg chewable tab] 81 mg PO DAILY tab.chew Irbesartan [Avapro 75mg tablet] 75 mg PO DAILY #30 tab Continued famotidine 20 mg tablet 20 mg PO QID Venlafaxine HCl [Effexor Xr] 75 mg PO DAILY hydrOXYzine HCl [Hydroxyzine HCl] 25 mg PO HS Mupirocin [Bactroban 2% Ointment 22gm tube] 1 applicatio TP TID Discontinued Naproxen 500 mg PO BID
== END 2018-11-02 10:59 | disposition home or self-care (01) ==
LOC: ER 20:59 → 2ND 20:59 → ICU 11-01 12:08 → 2ND 11-01 16:46
PROVIDERS: ADMIT Emergency Medicine; ATTEND Family Medicine
DX: R07.9 Chest pain, unspecified; F32.9 Major depressive disorder, single episode, unspecified; R06.02 Shortness of breath; R74.8 Abnormal levels of other serum enzymes; E66.9 Obesity, unspecified; K21.9 Gastro-esophageal reflux disease without esophagitis; Z82.49 Family history of ischemic heart disease and other diseases of the circulatory system; Z79.899 Other long term (current) drug therapy; M54.2 Cervicalgia; I25.110 Atherosclerotic heart disease of native coronary artery with unstable angina pectoris; Z95.5 Presence of coronary angioplasty implant and graft; Z68.32 Body mass index [BMI] 32.0-32.9, adult
CPT/HCPCS: 36415; 71020; 71046; 80048; 80061; 81025; 83735; 84484; 85025; 85347; 92928; 93005; 93306; 93458; 99152; 99285; C1725; C1769; C1876; C1894; C9600; G0378; J1644; Q9967

== ENCOUNTER → 2018-11-09 08:51 | Outpatient (CLI) | payer MEDICAID, SELFPAY ==
[2018-11-09 09:21] LABS: Hematocrit 43.8 % (37.0-47.0); Hemoglobin 13.6 g/dL (12.2-16.2)
[2018-11-09 11:36] LABS: Blood Urea Nitrogen 19 mg/dL (7-18); Creatinine,Serum 0.76 mg/dL (0.55-1.02); Estimated Glomerular Filt Rate 78 ml/min (>60); GFR (African American) 94 ML/MIN (>60)
== END ==
PROVIDERS: Visit Provider Family Medicine
DX: I25.10 Atherosclerotic heart disease of native coronary artery without angina pectoris (principal); R74.8 Abnormal levels of other serum enzymes; Z95.5 Presence of coronary angioplasty implant and graft
CPT/HCPCS: 36415; 82565; 84520; 85014; 85018

== ENCOUNTER → 2018-11-24 11:25 | Outpatient (CLI) | payer MEDICAID, SELFPAY ==
--- NOTE | 2018-11-24 11:31 | XR_ITS ---
XR shoulder RT min 2V HISTORY: ITS.REASON: RT SHOULDER PAIN ORDERING PHYSICIAN: ANDRE De La Cruz PATIENT AGE: 58 years Comparison: None FINDINGS: No fracture or dislocation. No lytic or blastic change. There is normal mineralization. There is some mild sclerosis over the humeral head at the greater tuberosity region with some cortical irregularity which may be seen with chronic rotator cuff disease with some small subcortical cyst at this area. IMPRESSION: Mild degenerative changes at the humeral head which may be seen with rotator cuff disease otherwise negative
== END ==
PROVIDERS: PCP Family Medicine; Visit Provider Physician Assistant
DX: M25.511 Pain in right shoulder (principal)
CPT/HCPCS: 73030

== ENCOUNTER 2018-11-30 15:52 | Outpatient (RCR) | payer MEDICAID, SELFPAY | END 2018-12-31 15:29 | disposition home or self-care (01) | LOC: PT 15:52 | PROVIDERS: Visit Provider Internal Medicine | DX: Z95.5 Presence of coronary angioplasty implant and graft (principal) | CPT/HCPCS: 93798 ==

== ENCOUNTER → 2019-02-08 08:41 | Outpatient (CLI) | payer MEDICAID, SELFPAY ==
[2019-02-08 09:17] LABS: Alanine Aminotransferase 19 U/L (12-78); Albumin Level 3.6 gm/dL (3.4-5.0); Alkaline Phosphatase 100 U/L (46-116); Aspartate Amino Transferase 18 U/L (15-37); Bilirubin,Direct 0.2 mg/dL (0.0-0.2); Bilirubin,Indirect 0.8 mg/dL (0.0-0.9); Chol/HDL Ratio 2.2 (1-3.5); Cholesterol 134 mg/dL (140-200); HDL Cholesterol 61 mg/dL (29-89); LDL Cholesterol 61 mg/dL (0-130); Total Protein,Serum 7.3 gm/dL (6.4-8.2); Triglycerides 60 mg/dL (30-200); VLDL Cholesterol 12 mg/dL (0-40)
== END ==
PROVIDERS: Visit Provider Physician Assistant
DX: I25.10 Atherosclerotic heart disease of native coronary artery without angina pectoris (principal); R74.8 Abnormal levels of other serum enzymes; E66.9 Obesity, unspecified; K21.9 Gastro-esophageal reflux disease without esophagitis; Z95.5 Presence of coronary angioplasty implant and graft
CPT/HCPCS: 36415; 80061; 80076

== ENCOUNTER → 2019-02-15 08:29 | Outpatient (CLI) | payer OTHER, SELFPAY ==
--- NOTE | 2019-02-15 08:32 | US_ITS ---
APPROVED REPORT Exam Type: Ankle to Brachial Index [employer] Elevator Operator: Jaz Payton RT(R) Indications Claudication: Bilaterally Numbness/Tingling CAD Risk Factors Hypertension CAD Hyperlipidemia Obesity Pressures/Indices Right Indices Left Indices Brachial 141.00 mmHg Brachial 143.00 mmHg Low Thigh 184.00 mmHg 1.29 Low Thigh 160.00 mmHg 1.12 Calf 153.00 mmHg 1.07 Calf 161.00 mmHg 1.13 Ankle(PT) 144.00 mmHg 1.01 Ankle(PT) 177.00 mmHg 1.24 Ankle(DP) 145.00 mmHg 1.01 Ankle(DP) 169.00 mmHg 1.18 Digit 134.00 mmHg 0.94 Digit 168.00 mmHg 1.17 Conclusion RT ELIZABETH=1.0 LT ELIZABETH=1.2 RT TBI=0.9 LT TBI=1.2 Normal pulses bilaterally Normal waveforms bilaterally No evidence significant arterial disease throughout the right and left lower extremities as evidenced by normal resting PVR waveforms and normal resting indices. Electronically signed by : Gavni Tijerina MD 02/21/2019 19:18:30
== END ==
PROVIDERS: PCP Family Medicine; Visit Provider Nurse Practitioner Family
DX: I73.9 Peripheral vascular disease, unspecified (principal); M79.604 Pain in right leg
CPT/HCPCS: 93923

== ENCOUNTER 2020-03-13 16:07 | Emergency (ER) | payer OTHER, SELFPAY ==
--- NOTE | 2020-03-13 | XR_ITS ---
PROCEDURE: XR ANKLE LT MIN 3V CLINICAL INDICATION: LEFT ANKLE PAIN AND SWELLING COMPARISON: No exams were available for comparison FINDINGS: There is mild lateral soft tissue swelling. No acute fracture or dislocation is evident. IMPRESSION: Soft tissue swelling otherwise negative Dictated by: Gavin Tijerina MD 03/13/2020 16:50 Gavin Tijerina MD in [place] 03/13/2020 16:50
[2020-03-13 16:31] VITALS: BP 122/71; PULSE 82; RESP 14; TEMP 36.9; O2SAT 96; BMI 34.9
--- NOTE | 2020-03-13 16:32 | XR_ITS ---
PROCEDURE: XR FOOT LT MIN 3V CLINICAL INDICATION: TWISTED ANKLE Pain COMPARISON: CR FTL3 FOOT-LT-3 VIEWS from 12/28/2014 CR RT FOOT 3VIEW from 12/28/2014 CR FTR3 FOOT-RT-3 VIEWS from 04/20/2017 CR FTL3 FOOT-LT-3 VIEWS from 04/20/2017 FINDINGS: No fracture or dislocation. No lytic or blastic change. There is normal mineralization. There is hammertoe deformity of the 2nd and 3rd toes. Bony hypertrophy involves the medial cuneiform at the metatarsal tarsal junction. Other findings:None. IMPRESSION: No change with no acute finding Dictated by: Gavin Tijerina MD 03/13/2020 16:52 Gavin Tijerina MD in [place] 03/13/2020 16:52
--- NOTE | 2020-03-13 16:55 | HMH.EDUTC ---
[facility] [place] Clinical Impression: Ankle sprain Qualifiers: Encounter type: initial encounter Involved ligament of ankle: other ligament Laterality: left Qualified Code(s): S93.492A - Sprain of other ligament of left ankle, initial encounter Disposition: Home, Self-Care Condition on Discharge: Good Instructions: How to Choose and Use a Walker, Ankle Sprain, DI for Ankle Sprain, How To Perform RICE (Rest, Ice, Compress, Elevate), How to Apply an Jose Wrap, DI for Foot Sprain Additional Instructions: *weight bearing as tolerated *RICE, Rest the extremity, Ice 15-20 minutes 3-4 times daily, Compress- wear the jose wrap as discussed as much as possible to help reduce swelling and pain, Elevate the extremity when at rest *Jose wrap is for support and help control swelling, use it except in the shower. Be sure that is not to tight but not to loose either *Elevate when resting *Ibuprofen every 6-8 hours as needed for pain an inflammation. If need something more can take Tylenol in between doses of Ibuprofen to help Follow up with Family Doctor if no improvement or any worsening of symptoms Prescriptions: Walker [Walker, Standard] 1 each MISCELLANE DIRECTED #1 each Prescription Printed Referrals: Michelle Head MD [Primary Care Provider] - Time of Disposition: 17:19 Medical Decision Making - Moose Inquiry Pt receiving controlled substance: No Moose was queried for this patient: No Vital Signs: 03/13/20 16:31 Temperature 98.4 F Temperature Source Oral Pulse Rate [Radial] 82 Respiratory Rate 14 Blood Pressure [Right Arm] 122/71 Blood Pressure Mean [Right Arm] 88 Blood Pressure Source [Right Arm] Automatic Cuff Blood Pressure Position [Right Arm] Sitting 02 Sat by Pulse Oximetry 96 Oxygen Delivery Method Room Air - Radiology Data #1 Image(s): Ankle Image Reviewed: Yes I reviewed the patient's radiology image, Yes I have reviewed radiologist's interpretation Preliminary Findings: No Fracture Seen Soft tissue swelling otherwise negative #2 Image(s): Foot/Toes Image Reviewed: Yes I have reviewed radiologist's interpretation Preliminary Findings: No Fracture Seen Medical Decision Narrative: Patient states that she is afraid she will fall with crutches States that she may need a walker to help with ambulation [facility] [place] - General Stated complaint: Left ankle swollen Time Seen by Provider: 03/13/20 16:55 Mode of Arrival: Ambulatory Source of Information: Patient Limitations: No Limitations Description of Symptoms (Recalled from Triage Doc. by RN): left ankle pain 2 days ago it popped and now it is swelling. HEENT Symptoms (Recalled from RN notes): No Resp Symptoms (Recalled from RN notes): No Skin Symptoms (Recalled from RN notes): No MS Symptoms (Recalled from RN notes): Yes Functional Status (Recalled from RN notes): wnl - History of Present Illness Provider Complaint: Patient states that she was walking a couple days ago and twisted her left ankle and felt a pop state that ever since she has been having some swelling with pain when she walks on it States that pain shoots from ankle area into her foot States that today she was still having some pain when she would walk so she come in to get it checked - Related Data Home Medications Medication Instructions Recorded Confirmed famotidine 20 mg tablet 20 mg PO QID 05/28/17 11/22/19 Venlafaxine HCl [Effexor Xr] 75 mg PO DAILY 10/31/18 11/22/19 Mupirocin [Bactroban 2% Ointment 1 applicatio TP TID 11/01/18 11/22/19 22gm tube] Previous Rx's Medication Instructions Recorded Aspirin [Aspirin 81mg chewable 81 mg PO DAILY tab.chew 11/02/18 tab] Atorvastatin Calcium [Lipitor 40mg 40 mg PO HS #30 tab 11/02/18 Tablet*] Irbesartan [Avapro 75mg 75 mg PO DAILY #30 tab 11/02/18 tablet] Metoprolol Succinate [Toprol XL 25 mg PO DAILY #30 tab.er.24h 11/02/18 25mg tablet] clopidogrel 75 mg tablet 75 mg PO DAILY #30
[2020-03-13 17:23] VITALS: BP 122/71; PULSE 82; RESP 14; TEMP 36.9; O2SAT 96
== END 2020-03-13 17:24 | disposition home or self-care (01) ==
PROVIDERS: Emergency Provider Nurse Practitioner; PCP Family Medicine
DX: S93.492A Sprain of other ligament of left ankle, initial encounter (principal); X50.1XXA Overexertion from prolonged static or awkward postures, initial encounter; Y93.01 Activity, walking, marching and hiking; Y92.89 Other specified places as the place of occurrence of the external cause; I25.10 Atherosclerotic heart disease of native coronary artery without angina pectoris; K21.9 Gastro-esophageal reflux disease without esophagitis; F33.1 Major depressive disorder, recurrent, moderate; E03.9 Hypothyroidism, unspecified; Z79.899 Other long term (current) drug therapy
CPT/HCPCS: 29515; 73610; 73630; 99201

== ENCOUNTER → 2020-05-30 06:13 | Outpatient (CLI) | payer OTHER, SELFPAY ==
--- NOTE | 2020-05-30 06:17 | NM_ITS ---
APPROVED REPORT Exam: Nuclear Stress Test Indication: CAD, HTN, HYPERLIPIDEMIA, FM HX., C.P., SOB, FATIGUE Patient Location: Outpatient Stress Tech: Mitzi Sanchez NE Tech:Barbara Palomares, ARRT, RT (R)(N) Ht: 5 ft 5 in Wt: 206 lbs Bra Size: D HR: 81 bpm BP: 176/84 mmHg BSA: 2.00 m2 BMI: 34.2 History: CAD, HTN, HYPERLIPIDEMIA, FM HX., C.P., SOB, FATIGUE Procedure: Patient exercised on Sid protocol 5:30 minutes and sec, resting heart rate 81 bpm, resting blood pressure 176/84 mmHg, with exercise maximum heart rate achived was 137 bpm which is 85 % of the maximum predicted heart rate and blood pressure was 180/86 mmHg. Test was stopped due to soa. Patient denied any complaint of chest pain. Patient has Adequate exercise capacity, achieved 7.0 METs of workload on treadmill, the blood pressure response to exercise was Abnormal. Electrocardiogram Resting electrocardiogram showed sinus rhythm, with exercise there is less than 1.[address] segment depression noted from the baseline EKG. The EKG portion of the exercise Myoview is negative for ischemia. Cardiac Stress and Resting SPECT Images: Cardiac Stress and Resting SPECT images were obtained using technetium 99m Myoview 31.8 mCi stress and 10.41 mCi at rest. Gated SPECT for analysis of segmental wall motion and calculation of the ejection fraction also done. Prone images were also obtained. Cardiac stress and resting SPECT images show uniform myocardial activity without segmental perfusion abnormality, computer derived ejection fraction is 55% with no regional wall motion abnormality, right ventricle is normal size and contractility. Conclusion: 1. The EKG portion of the exercise Myoview is negative for ischemia, patient has adequate exercise capacity achieved 7 mets of workload on treadmill, the blood pressure response to exercise was abnormal, there was no exercise-induced chest discomfort. 2. No scintigraphic evidence of reversible ischemia seen at this level of exercise, computer derived ejection fraction 55% with no regional wall motion abnormality, right ventricle is normal size and contractility. Electronically signed by : Julio Maher, 05/31/2020 13:30:51
--- NOTE | 2020-05-30 06:17 | CA_ITS ---
APPROVED REPORT Exam: Exercise Treadmill Technologist: Mitzi Sanchez Ht: 5 ft 5 in Wt: 206 lbs BSA: 2.00 m2 HR: 81 bpm BP: 176/84 mmHg Indications: CAD Medical History Medications: Irbesartan,,,,, Metoprolol,,,,, Atorvastatin,,,,, CloPIdogrel,,,,, Famotidine,,,,, Venlafaxine,,,,, Stress Test Details Test: Sid HR Resting HR: 85 bpm Max Heart Rate (APMHR): 160 bpm Max HR Achieved: 137 bpm Target HR (85% APMHR): 136 bpm % of APMHR: 85 Recovery HR: 84 bpm BP Resting BP: 176.0/84.0 mmHg Max BP: 184.0/78.0 mmHg Recovery BP: 153.0/79.0 mmHg ECG Resting ECG: Normal sinus rhythm Clinical Exercise duration: 05:30 min Highest Stage Achieved: Exercise capacity: 7.0 METs Stress ECG Conclusion Patient exercised 5:30 on Sid Protocol. Test stopped due to shortness of air, fatigue, and anxiety. Symptoms: No chest pain Arrhytmias/Ectopy: None ST-T Changes: [address] depression inferiorly and 0.5 mm laterally. Conclusion: Equivocal EKG changes. Myoview images reported separately. Electronically signed by : Julio Maher, 05/31/2020 13:26:49
--- NOTE | 2020-05-30 08:52 | HMH.ITSHM ---
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 []ATORVASTATIN FAMOTIDINE IREBESARTAN CLOPIDOGREL METOPROLOL
[2020-05-30 11:29] LABS: Alanine Aminotransferase 20 U/L (12-78); Albumin Level 4.4 g/dl (3.5-5.0); Alkaline Phosphatase 100 U/L (38-126); Anion Gap 11.3 mEq/L (5-15); Aspartate Amino Transferase 30 U/L (14-36); Bilirubin,Direct 0.2 mg/dl (0.0-0.4); Bilirubin,Indirect 1.5 mg/dL (0.0-0.9); Bilirubin,Total 1.7 mg/dl (0.2-1.3); Bilirubin,Unconjugated 1.5 mg/dL (0.0-1.1); Blood Urea Nitrogen 19 mg/dl (7-17); Carbon Dioxide 30 mmol/L (22.0-30.0); Chloride 102 mmol/L (98-107); Chol/HDL Ratio 2.4 (1-3.5); Cholesterol 149 mg/dl (140-200); Estimated Glomerular Filt Rate 85 ml/min (>60); GFR (African American) 103 ML/MIN (>60); Glucose 102 mg/dl (74-100); HDL Cholesterol 62 mg/dl (40-60); Potassium 4.3 mmoL/L (3.5-5.1); Sodium 139 mmol/L (136-145); Total Protein,Serum 7.2 g/dl (6.3-8.2); Triglycerides 81 mg/dl (30-150); VLDL Cholesterol 16 mg/dL (0-40)
[2020-05-30 11:40] LABS: Direct LDL Cholesterol 67.99 mg/dL (100-129)
== END ==
PROVIDERS: PCP Family Medicine; Visit Provider Urology
DX: I20.9 Angina pectoris, unspecified (principal); I11.9 Hypertensive heart disease without heart failure; E78.5 Hyperlipidemia, unspecified; E78.2 Mixed hyperlipidemia; R12 Heartburn; Z95.5 Presence of coronary angioplasty implant and graft
CPT/HCPCS: 36415; 78452; 80048; 80061; 80076; 93017; A9502

== ENCOUNTER → 2022-01-22 09:25 | Outpatient (CLI) | payer OTHER, SELFPAY ==
[2022-01-22 10:41] LABS: Alanine Aminotransferase 21 U/L (12-78); Albumin Level 4.1 g/dl (3.5-5.0); Alkaline Phosphatase 131 U/L (38-126); Aspartate Amino Transferase 28 U/L (14-36); Bilirubin,Direct 0.3 mg/dl (0.0-0.4); Bilirubin,Indirect 1.1 mg/dL (0.0-0.9); Bilirubin,Total 1.4 mg/dl (0.2-1.3); Bilirubin,Unconjugated 1.2 mg/dL (0.0-1.1); Chol/HDL Ratio 2.8 (1-3.5); Cholesterol 150 mg/dl (140-200); HDL Cholesterol 54 mg/dl (40-60); Total Protein,Serum 6.8 g/dl (6.3-8.2); Triglycerides 115 mg/dl (30-150); VLDL Cholesterol 23 mg/dL (0-40)
[2022-01-23 08:25] LABS: Direct LDL Cholesterol 81 mg/dL (100-129)
== END ==
PROVIDERS: PCP Family Medicine; Visit Provider Nurse Practitioner Family
DX: I25.10 Atherosclerotic heart disease of native coronary artery without angina pectoris (principal); I11.9 Hypertensive heart disease without heart failure; K21.9 Gastro-esophageal reflux disease without esophagitis; Z95.5 Presence of coronary angioplasty implant and graft
CPT/HCPCS: 36415; 80061; 80076

== ENCOUNTER 2023-01-23 05:31 | Emergency (ER) | payer OTHER, SELFPAY ==
[2023-01-23 05:33] VITALS: PULSE 98; RESP 18; TEMP 36.5; O2SAT 98; BMI 36.6
--- NOTE | 2023-01-23 05:49 | XR_ITS ---
PROCEDURE INFORMATION: Exam: XR Pelvis Exam date and time: 01/23/2023 6:08 AM Age: 62 years old Clinical indication: Injury or trauma; Fall; Blunt trauma (contusions or hematomas); Does not apply; Pelvic region TECHNIQUE: Imaging protocol: Radiologic exam of the pelvis. Views: 1 or 2 view. COMPARISON: No relevant prior studies available. FINDINGS: Bones/joints: Lower lumbar facet osteoarthropathy. No acute fracture or dislocation. Soft tissues: Unremarkable. Vasculature: Intrapelvic phleboliths. IMPRESSION: No acute findings.
--- NOTE | 2023-01-23 05:49 | XR_ITS ---
PROCEDURE INFORMATION: Exam: XR Right Knee Exam date and time: 01/23/2023 6:08 AM Age: 62 years old Clinical indication: Injury or trauma; Fall; Blunt trauma; Knee; Right TECHNIQUE: Imaging protocol: Radiologic exam of the right knee. Views: 3 views. COMPARISON: US ARTERIAL LOWER EXT REST 02/15/2019 8:36 AM FINDINGS: Bones/joints: No acute fracture or dislocation. Joints intact. Medial distal femoral enthesophyte. Soft tissues: Normal. Vasculature: Minimal arterial vascular calcification. IMPRESSION: No acute findings, right knee radiograph.
--- NOTE | 2023-01-23 05:49 | CT_ITS ---
PROCEDURE INFORMATION: Exam: CT Head Without Contrast Exam date and time: 01/23/2023 6:11 AM Age: 62 years old Clinical indication: Injury or trauma; Fall; Additional info: Head trauma TECHNIQUE: Imaging protocol: Computed tomography of the head without contrast. Radiation optimization: All CT scans at this facility use at least one of these dose optimization techniques: automated exposure control; mA and/or kV adjustment per patient size (includes targeted exams where dose is matched to clinical indication); or iterative reconstruction. REPORTING DATA: Count of CT and Cardiac NM exams in prior 12 months: This patient has received 0 known CTs and 0 known cardiac nuclear medicine studies in the 12 months prior to the current study. COMPARISON: No relevant prior studies available. FINDINGS: Brain: No evidence of acute intracranial hemorrhage or acute ischemia demonstrated on the examination. Normal ozuna white matter differentiation. No mass effect or midline shift. Cortical sulci and subarachnoid cisterns are unremarkable. Cerebral ventricles: No ventriculomegaly. Paranasal sinuses: Left maxillary sinus mucoperiosteal thickening. Mastoid air cells: Visualized mastoid air cells are well aerated. Bones/joints: Unremarkable. No acute calvarial fracture. Soft tissues: Right frontotemporal scalp laceration. Vasculature: Carotid and vertebrobasilar artery vascular calcification. IMPRESSION: No acute intracranial abnormality.
--- NOTE | 2023-01-23 05:49 | XR_ITS ---
PROCEDURE INFORMATION: Exam: XR Right Ankle Exam date and time: 01/23/2023 6:08 AM Age: 62 years old Clinical indication: Injury or trauma; Fall; Blunt trauma; Ankle; Right TECHNIQUE: Imaging protocol: Radiologic exam of the right ankle. Views: 3 or more views. COMPARISON: CR FTR3 FOOT-RT-3 VIEWS 04/20/2017 11:02 AM FINDINGS: Bones/joints: Bony demineralization. Small Achilles side calcaneal bone spur. No acute fracture or dislocation. Joints intact. Soft tissues: Soft tissues unremarkable. IMPRESSION: No acute findings right ankle radiograph.
--- NOTE | 2023-01-23 05:49 | XR_ITS ---
PROCEDURE INFORMATION: Exam: XR Chest Exam date and time: 01/23/2023 6:08 AM Age: 62 years old Clinical indication: Injury or trauma; Fall; Blunt trauma (contusions or hematomas) TECHNIQUE: Imaging protocol: Radiologic exam of the chest. Views: 1 view. COMPARISON: CR Chest 10/31/2018 9:13 PM FINDINGS: Lungs: Lungs well aerated. No consolidation. Pleural spaces: Unremarkable. No pleural effusion. No pneumothorax. Heart/Mediastinum: No cardiomegaly. Vasculature: Tortuous aorta. Bones/joints: Osteopenia. IMPRESSION: No acute findings.
--- NOTE | 2023-01-23 05:49 | XR_ITS ---
PROCEDURE INFORMATION: Exam: XR Right Tibia and Fibula Exam date and time: 01/23/2023 6:08 AM Age: 62 years old Clinical indication: Injury or trauma; Fall; Blunt trauma; Lower leg; Right TECHNIQUE: Imaging protocol: Radiologic exam of the right tibia and fibula. Views: 2 views. COMPARISON: CR FTR3 FOOT-RT-3 VIEWS 04/20/2017 11:02 AM FINDINGS: Bones/joints: Bony demineralization. No acute fracture or dislocation. Joints intact. Soft tissues: Soft tissues unremarkable. IMPRESSION: No acute findings right tibia/fibula radiographs.
--- NOTE | 2023-01-23 05:53 | HMH.EDGENADL ---
Discharge Plan Disposition Patient Disposition: Home, Self-Care Condition: Good Prescriptions Prescriptions: No Action venlafaxine 75 mg capsule,extended release 24hr 75 mg PO DAILY Patient Comments: TAKE ONE CAPSULE BY MOUTH EVERY DAY famotidine [Acid Sewer Pipe Cleaner (famotidine)] 20 mg tablet 20 mg PO DAILY atorvastatin 40 mg tablet 40 mg PO DAILY irbesartan 150 mg tablet See Rx Instructions .ROUTE .COMPLEX Qty: 30 5RF Dose Instruction: TAKE ONE TABLET BY MOUTH EVERY DAY Rx Instructions: TAKE ONE TABLET BY MOUTH EVERY DAY clopidogrel 75 mg tablet See Rx Instructions .ROUTE .COMPLEX Qty: 90 1RF Dose Instruction: TAKE 1 TABLET BY MOUTH EVERY DAY Rx Instructions: TAKE 1 TABLET BY MOUTH EVERY DAY metoprolol succinate 25 MG tablet extended release 24 hr 25 mg PO DAILY Qty: 30 4RF Referrals Follow up/Referrals: Provider,Referral, [Primary Care Provider] - See instructions Activity Restrictions/Add. Instructions Additional Instructions/Restrictions: Please follow-up with your primary care provider. Please return to the emergency department if you develop any new or worsening symptoms or become concerned for your health. Clinical Impressions Clinical Impression: Leg pain, Fall Acute head trauma Qualifiers: Encounter type: initial encounter Qualified Code(s): S09.90XA - Unspecified injury of head, initial encounter Instructions Patient Instructions: How to Prevent Falls Discharge ED Provider: Britton Vázquez General Adult HPI <Yonathan Vegas MD - Last Filed: 01/24/23 04:23> General Chief complaint: Fall Stated complaint: fall, right leg pain Time Seen by Provider: 01/23/23 05:49 Mode of Arrival: Ambulatory Source of Information: Patient Limitations: No Limitations Description of Symptoms (Recalled from ER Triage Doc. by RN): Pt took a fall at home at 0430. States her right knee twisted and she fell onto it and hit her head on a post. No LOC. Pt does take blood thinner unsure which one. History of Present Illness HPI narrative: 62-year-old female presents with fall. She was walking her pitbull approximately 1 hour prior to arrival when she was pulled to the ground by the dog. She reports pain in her right knee and tib-fib and ankle. She struck her head and has a goose egg on the right temporal scalp. She reports no loss of consciousness. She reports chronic pain in the right knee. She is on Plavix for prior stents. Related Data Home Medications Medication Instructions Recorded Confirmed famotidine 20 mg tablet (Acid 20 mg PO DAILY Heartburn 06/13/20 07/31/22 Sewer Pipe Cleaner (famotidine)) venlafaxine 75 mg capsule,extended 75 mg PO DAILY 07/24/21 07/31/22 release 24 hr atorvastatin 40 mg tablet 40 mg PO DAILY 01/22/22 07/31/22 Previous Rx's Medication Instructions Recorded metoprolol succinate 25 mg 25 mg PO DAILY ##30 11/02/18 tablet,extended release 24 hr irbesartan 150 mg tablet See Rx Instructions .Route 07/01/22 .COMPLEX #30 tabs clopidogrel 75 mg tablet See Rx Instructions .Route 09/29/22 .COMPLEX #90 tabs Allergies Allergy/AdvReac Type Severity Reaction Status Date / Time No Known Allergies Allergy Verified 07/31/22 09:40 PFSH <Yonathan Vegas MD - Last Filed: 01/24/23 04:23> PFSH Disclaimer: The information contained in this section may have been updated after the patient was seen, as this information can be updated by other users. Medical History Claudication HLD (hyperlipidemia) Leg pain Social History Smoking Status: Never smoker alcohol intake: never counseling provided: none substance use type: denies use current occupational status: employed Travel in the last 8 weeks: Inside the [place] housing: house caffeine: Yes <Yonathan Vegas MD - Last Filed: 01/24/23 04
[2023-01-23 06:01] VITALS: BP 124/60; PULSE 83; RESP 18; O2SAT 98
[2023-01-23 06:31] VITALS: BP 121/63; PULSE 81; O2SAT 95
[2023-01-23 07:01] VITALS: BP 118/59; O2SAT 95
[2023-01-23 07:31] VITALS: BP 92/59; PULSE 77; O2SAT 94
--- NOTE | 2023-01-23 07:40 | PC.NURSE ---
Dr. Vázquez at [facility] to update pt
[2023-01-23 07:43] VITALS: BP 92/59; PULSE 86; RESP 18; TEMP 36.7; O2SAT 96
== END 2023-01-23 07:48 | disposition home or self-care (01) ==
PROVIDERS: Emergency Provider Emergency Medicine
DX: S09.90XA Unspecified injury of head, initial encounter (principal); M25.561 Pain in right knee; E78.5 Hyperlipidemia, unspecified; Z79.02 Long term (current) use of antithrombotics/antiplatelets; W18.30XA Fall on same level, unspecified, initial encounter
CPT/HCPCS: 70450; 71045; 72170; 73562; 73590; 73610; 99285

== ENCOUNTER 2024-01-11 16:54 | Emergency (ER) | payer OTHER, SELFPAY ==
[2024-01-11 17:10] VITALS: BP 123/55; PULSE 68; RESP 20; TEMP 36.8; O2SAT 99; BMI 41.5
--- NOTE | 2024-01-11 17:11 | CT_ITS ---
PROCEDURE INFORMATION: Exam: CT Abdomen And Pelvis With Contrast Exam date and time: 01/11/2024 5:49 PM Age: 63 years old Clinical indication: Nausea and vomiting; Abdominal pain; Localized; Left lower quadrant (llq); Additional info: Llq pain/nausea/tenesmus TECHNIQUE: Imaging protocol: Computed tomography of the abdomen and pelvis with contrast. Radiation optimization: All CT scans at this facility use at least one of these dose optimization techniques: automated exposure control; mA and/or kV adjustment per patient size (includes targeted exams where dose is matched to clinical indication); or iterative reconstruction. Contrast material: ISOVUE; Contrast volume: 75 ml; Contrast route: IV; COMPARISON: CR XR PELVIS 1-2V 01/23/2023 6:08 AM FINDINGS: Pleural spaces: There are no pleural effusions. Heart: There is no evidence of pericardial fluid collections. Pulmonary vasculature is within range of normal. The heart is borderline enlarged. Diaphragm: There is mild elevation of the right hemidiaphragm. A moderate hiatal hernia is present. Liver: There is mild diffuse decrease in hepatic/liver parenchymal density consistent with fatty infiltration. Gallbladder and biliary ducts: The gallbladder is normal. Pancreas: The pancreas is normal. Spleen: The spleen is normal. Adrenal glands: The adrenal glands are normal. Kidneys and ureters: There is a distal left ureteral calcification at the ureterovesicular junction measuring 4.1 mm resulting in mild left hydronephrosis, minor prominence of the left ureter and subtle decreased attenuation of the left renal parenchyma suggesting edema/delayed nephrogram. There is minor periureteric fat stranding. No right ureteric stone disease. There is a 10 mm nephrolith in the superior right kidney. Stomach and bowel: Aside from the hiatal hernia, the stomach is within range of normal. Unopacified loops of small bowel within range of normal. The duodenum appears within range of normal. There are a few colonic diverticula in the distal colon without evidence of diverticulitis. Appendix: No evidence of appendicitis. Intraperitoneal space: There is no evidence of free intraperitoneal or pelvic fluid. No evidence of intraperitoneal free air. Vasculature: The The aorta and iliac arteries demonstrate mild atherosclerotic calcification. There are a few benign phleboliths in the pelvis. Atherosclerotic vascular calcifications involve the origin of the celiac and SMA arteries as well as bilateral renal arteries without significant stenosis. Lymph nodes: There is no evidence of pathologic adenopathy. Urinary bladder: The bladder is decompressed. Reproductive: The uterus is normal. No adnexal cysts or masses are identified. The ovaries are normal. Bones/joints: The thoracolumbar spine demonstrates mild degenerative changes at multiple levels. Soft tissues: Unremarkable. IMPRESSION: 1. Distal left ureteral calcification at the ureterovesicular junction measuring 4.1 mm resulting in mild left hydronephrosis, minor prominence of the left ureter and subtle decreased attenuation of the left renal parenchyma suggesting edema/delayed nephrogram. 2. 10 mm nonobstructing nephrolith in the superior right kidney. 3. Fatty hepatic infiltration. 4. Moderate hiatal hernia.
[2024-01-11 17:13] LABS: Microscopic, Urine URINE MICROSCOPIC (MICROSCOPIC)
--- NOTE | 2024-01-11 17:13 | HMH.EDGENADL ---
Discharge Plan Disposition Patient Disposition: Home, Self-Care Condition: Good Prescriptions Prescriptions: New cefdinir 300 mg capsule 300 mg PO BID 10 Days Qty: 20 0RF oxycodone 5 mg tablet 5 mg PO Q8H PRN (Reason: pain) Qty: 10 0RF ondansetron 4 mg tablet,disintegrating 4 mg PO Q8H PRN (Reason: nausea and vomiting) 4 Days Qty: 12 0RF No Action venlafaxine 75 mg capsule,extended release 24hr 75 mg PO DAILY Patient Comments: TAKE ONE CAPSULE BY MOUTH EVERY DAY famotidine [Acid Elementary Teacher (famotidine)] 20 mg tablet 20 mg PO DAILY atorvastatin 40 mg tablet 40 mg PO DAILY irbesartan 150 mg tablet See Rx Instructions .ROUTE .COMPLEX Qty: 30 5RF Dose Instruction: TAKE ONE TABLET BY MOUTH EVERY DAY Rx Instructions: TAKE ONE TABLET BY MOUTH EVERY DAY clopidogrel 75 mg tablet See Rx Instructions .ROUTE .COMPLEX Qty: 90 1RF Dose Instruction: TAKE 1 TABLET BY MOUTH EVERY DAY Rx Instructions: TAKE 1 TABLET BY MOUTH EVERY DAY metoprolol succinate 25 MG tablet extended release 24 hr 25 mg PO DAILY Qty: 30 4RF Referrals Follow up/Referrals: Jasmina Bergeron PA [Primary Care Provider] - See instructions Activity Restrictions/Add. Instructions Additional Instructions/Restrictions: You were evaluated in the emergency department today. 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 Make sure to take the full course of antibiotics as prescribed. You may take Tylenol and ibuprofen in addition to the oxycodone as needed for pain. Please follow-up very closely with a urologist. I also recommend close follow-up with your primary care provider. Return to the emergency department right away for new or worsening symptoms, such as fever greater than 100.4 ?F, tractable nausea and vomiting, or significant worsening of pain. Clinical Impressions Clinical Impression: Ureterolithiasis, UTI (urinary tract infection) Instructions Patient Instructions: DI for Kidney Stones, DI for Acute Kidney Injury Print Language Print Language: Syriac Discharge ED Provider: Mary Jo Pacheco General Adult HPI General Chief complaint: Abdominal Pain Stated complaint: LLQ abd pain Time Seen by Provider: 01/11/24 16:58 History of Present Illness HPI narrative: This patient is a 63-year-old female with a history of hypertension, hyperlipidemia, hypertensive heart disease, CAD, and GERD presented to the emergency department for evaluation with concern for left lower quadrant abdominal pain that started several hours prior to arrival. She also notes nausea and feelings like she needs to go to the bathroom and have a bowel movement, but she has not been able to. No fevers, chills, chest pain, shortness of breath, vomiting, or urinary symptoms. She states the pain is severe. Related Data Home Medications ?Medication ?Instructions ?Recorded ?Confirmed famotidine 20 mg tablet (Acid 20 mg PO DAILY Heartburn 06/13/20 07/31/22 Elementary Teacher (famotidine)) venlafaxine 75 mg capsule,extended 75 mg PO DAILY 07/24/21 07/31/22 release 24 hr atorvastatin 40 mg tablet 40 mg PO DAILY 01/22/22 07/31/22 Previous Rx's ?Medication ?Instructions ?Recorded metoprolol succinate 25 mg 25 mg PO DAILY ##30 11/02/18 tablet,extended release 24 hr irbesartan 150 mg tablet See Rx Instructions .Route 07/01/22 .COMPLEX #30 tabs clopidogrel 75 mg tablet See Rx Instructions .Route 08/28/23 .COMPLEX #90 tabs cefdinir 300 mg capsule 300 mg PO BID 10 days #20 caps 01/11/24 ondansetron 4 mg disintegrating 4 mg PO Q8H PRN nausea and 01/11/24 tablet vomiting 4 days #12 tabs oxycodone 5 mg tablet 5 mg PO Q8H PRN pain #10 tabs 01/11/24 Allergies Allergy/AdvReac Type Severity Reaction Status Date / Time No Known Allergies Allergy Verified 07/31/22 09:40 [facility] Disclaimer: The information contained in this section may have been updated after the patient was seen, as this informa
[2024-01-11 17:16] LABS: Appearance,Urine CLOUDY (Clear); Blood, Urine 3+ (Negative); Color,Urine YELLOW (Yellow); Glucose,Urine (UA) TRACE (Negative); Ketones,Urine Negative (Negative); Leukocyte Esterase,Urine 2+ (Negative); Nitrate,Urine Negative (Negative); PH,Urine 5.5 (5.0-8.5); Protein,Urine 1+ (Negative); Specific Gravity, Urine >= 1.030 (1.005-1.030); Urobilinogen,Urine 0.2 EU/dl (0.2)
[2024-01-11 17:29] LABS: Basophils # 0.1 K/mm3 (0-0.2); Basophils % 1.1 % (0.1-2.0); Eosinophils # 0.2 K/mm3 (0.0-0.4); Eosinophils % 2.7 % (0.1-12.0); Hematocrit 42.3 % (37.0-47.0); Hemoglobin 13.4 g/dL (12.2-16.2); Lymphocytes # 1.3 K/mm3 (0.7-4.5); Lymphocytes % 19.6 % (10-50); Mean Corpuscular HGB Conc 31.7 g/dL (31.8-35.4); Mean Corpuscular Hemoglobin 26.4 pg (27.0-31.2); Mean Corpuscular Volume 83.2 fl (81-99); Mean Platelet Volume 10.2 fl (7.4-10.4); Monocytes # 0.4 K/mm3 (0.1-1.0); Monocytes % 6.2 % (1.7-9.3); Neutrophils # 4.5 K/mm3 (1.8-7.8); Neutrophils % 70.3 % (37.0-80.0); Platelet Count 215 K/mm3 (142-424); Red Blood Count 5.08 M/mm3 (4.20-5.40); Red Cell Distribution Width 15.9 % (11.5-17.5); White Blood Count 6.4 K/mm3 (4.8-10.8)
[2024-01-11 17:33] VITALS: BP 128/46; PULSE 61; RESP 16; O2SAT 100
[2024-01-11 17:33] LABS: Albumin Level 4.2 g/dl (3.5-5.0); Chloride 109 mmol/L (98-107); Potassium 4.4 mmoL/L (3.5-5.1); Sodium 141 mmol/L (136-145)
[2024-01-11 17:35] LABS: Bilirubin,Urine 1+ (Negative)
[2024-01-11 17:35] LABS: Blood Urea Nitrogen 16 mg/dl (7-17); Creatinine Clearance Estimated 51 mL/min (50-200); Estimated Glomerular Filt Rate 72 ml/min (>60); GFR (African American) 87 ML/MIN (>60)
[2024-01-11 17:36] LABS: Alanine Aminotransferase 32 U/L (12-78); Albumin/Globulin Ratio 1.3 (1.1-1.8); Alkaline Phosphatase 96 U/L (38-126); Anion Gap 10.4 mEq/L (5-15); Aspartate Amino Transferase 41 U/L (14-36); Bilirubin,Total 1.8 mg/dl (0.2-1.3); Calcium 9.1 mg/dl (8.4-10.2); Carbon Dioxide 26 mmol/L (22.0-30.0); Globulin 3.2 g/dL (1.3-3.2); Glucose 150 mg/dl (74-100); Lipase 73 U/L (23-300); Total Protein,Serum 7.4 g/dl (6.3-8.2)
[2024-01-11 17:41] LABS: Bacteria,Urine 2+ /lpf; RBC,Urine TNTC #/hpf (0-3); WBC,Urine 20-50 #/hpf (0-3)
[2024-01-11 17:47] LABS: Lactic Acid 2.2 mmol/L (0.7-2.1)
[2024-01-11 18:01] VITALS: BP 122/37; PULSE 79; RESP 18; O2SAT 97
--- NOTE | 2024-01-11 18:43 | PC.NURSE ---
Pt given drink and crackers for PO challenge
[2024-01-11 18:47] VITALS: BP 138/79; PULSE 72; RESP 18; O2SAT 98
--- NOTE | 2024-01-11 18:48 | PC.NURSE ---
Dr. Pacheco at for pt reevaluation
[2024-01-11 19:29] VITALS: BP 144/110; PULSE 85; RESP 16; TEMP 36.6; O2SAT 98
== END 2024-01-11 19:35 | disposition home or self-care (01) ==
PROVIDERS: Emergency Provider Emergency Medicine; PCP Physician Assistant
DX: R10.32 Left lower quadrant pain (principal); N13.0 Hydronephrosis with ureteropelvic junction obstruction; R74.02 Elevation of levels of lactic acid dehydrogenase [LDH]; N39.0 Urinary tract infection, site not specified; R11.0 Nausea; I10 Essential (primary) hypertension; E78.5 Hyperlipidemia, unspecified
CPT/HCPCS: 74177; 80053; 81001; 83605; 83690; 85025; 87086; 96361; 96365; 96375; 99285; J0696; J1885; J2270; J2405; J7120; Q9967

== ENCOUNTER 2024-08-10 09:33 | Outpatient (CLI) | payer OTHER, SELFPAY ==
[2024-08-10 10:03] LABS: Basophils # 0.1 K/mm3 (0-0.2); Basophils % 1.1 % (0.1-2.0); Eosinophils # 0.2 K/mm3 (0.0-0.4); Eosinophils % 3.8 % (0.1-12.0); Hematocrit 43.3 % (37.0-47.0); Hemoglobin 13.4 g/dL (12.2-16.2); Lymphocytes # 1.5 K/mm3 (0.7-4.5); Lymphocytes % 24.3 % (10-50); Mean Corpuscular HGB Conc 30.9 g/dL (31.8-35.4); Mean Corpuscular Hemoglobin 25.4 pg (27.0-31.2); Mean Platelet Volume 11.9 fl (7.4-10.4); Monocytes # 0.5 K/mm3 (0.1-1.0); Monocytes % 7.9 % (1.7-9.3); Neutrophils # 3.8 K/mm3 (1.8-7.8); Neutrophils % 62.6 % (37.0-80.0); Platelet Count 226 K/mm3 (142-424); Red Blood Count 5.28 M/mm3 (4.20-5.40); Red Cell Distribution Width 15.8 % (11.5-17.5); White Blood Count 6.1 K/mm3 (4.8-10.8)
[2024-08-10 10:33] LABS: Alanine Aminotransferase 20 U/L (12-78); Albumin Level 4.1 g/dl (3.5-5.0); Alkaline Phosphatase 90 U/L (38-126); Aspartate Amino Transferase 25 U/L (14-36); Bilirubin,Direct 0.1 mg/dl (0.0-0.4); Bilirubin,Indirect 1.3 mg/dL (0.0-0.9); Bilirubin,Total 1.4 mg/dl (0.2-1.3); Bilirubin,Unconjugated 1.3 mg/dL (0.0-1.1); Chol/HDL Ratio 3.1 (1-3.5); Cholesterol 152 mg/dl (140-200); HDL Cholesterol 49 mg/dl (40-60); Total Protein,Serum 6.6 g/dl (6.3-8.2); Triglycerides 114 mg/dl (30-150); VLDL Cholesterol 23 mg/dL (0-40)
[2024-08-10 10:37] LABS: Alanine Aminotransferase 21 U/L (12-78); Albumin Level 4.1 g/dl (3.5-5.0); Albumin/Globulin Ratio 1.6 (1.1-1.8); Alkaline Phosphatase 90 U/L (38-126); Anion Gap 14.2 mEq/L (5-15); Aspartate Amino Transferase 25 U/L (14-36); Bilirubin,Total 1.4 mg/dl (0.2-1.3); Blood Urea Nitrogen 19 mg/dl (7-17); Calcium 9.4 mg/dl (8.4-10.2); Carbon Dioxide 25 mmol/L (22.0-30.0); Chloride 106 mmol/L (98-107); Estimated Glomerular Filt Rate 84 ml/min (>60); GFR (African American) 102 ML/MIN (>60); Globulin 2.5 g/dL (1.3-3.2); Glucose 98 mg/dl (74-100); Potassium 4.2 mmoL/L (3.5-5.1); Sodium 141 mmol/L (136-145); Total Protein,Serum 6.6 g/dl (6.3-8.2)
[2024-08-10 10:44] LABS: Direct LDL Cholesterol 76.62 mg/dL (100-129)
[2024-08-10 10:52] LABS: Free T4 (Free Thyroxine) 1.06 ng/dl (0.78-2.19)
[2024-08-10 11:05] LABS: Thyroid Stimulating Hormone 1.96 uIU/mL (0.465-4.68)
[2024-08-10 12:27] LABS: Hemoglobin A1C 6.1 % (4.0-6.0)
== END 2024-08-10 23:59 | disposition home or self-care (01) ==
LOC: LAB 09:34
PROVIDERS: Nurse Practitioner Family; PCP Physician Assistant; Visit Provider Physician Assistant
DX: I11.9 Hypertensive heart disease without heart failure (principal); E78.5 Hyperlipidemia, unspecified; I25.10 Atherosclerotic heart disease of native coronary artery without angina pectoris; Z82.49 Family history of ischemic heart disease and other diseases of the circulatory system; E66.811 Obesity, class 1; Z68.41 Body mass index [BMI] 40.0-44.9, adult
CPT/HCPCS: 36415; 80053; 80061; 80076; 83036; 84439; 84443; 85025

== ENCOUNTER 2024-08-31 11:09 | Outpatient (CLI) | payer OTHER, SELFPAY ==
--- NOTE | 2024-08-31 | CA_ITS ---
APPROVED REPORT Exam: Exercise Treadmill Technologist: Mitzi Sanchez Ht: 5 ft 5 in Wt: 241 lbs BSA: 2.14 m2 HR: 75 bpm BP: 146/83 mmHg Rhythm: NSR Stress Test Details Test: Exercise stress testing was performed using a Sid protocol. HR Resting HR: 75 bpm Max Heart Rate (APMHR): 155 bpm Max HR Achieved: 145 bpm Target HR (85% APMHR): 132 bpm % of APMHR: 94 Recovery HR: 86 bpm HR response to stress: Normal HR response to stress BP Resting BP: 146.0/83.0 mmHg Max BP: 190.0/90.0 mmHg Recovery BP: 144.0/84.0 mmHg BP response to stress: Normal blood pressure response to stress. ECG Resting ECG: NSR Stress ECG: < 0.5 mm upsloping or for depression Arrhythmia: PVCs Clinical Exercise duration: 4:04 min Exercise capacity: 5.9 METs Overall Exercise Capacity for Age: Fair Stress ECG Conclusion Symptoms: Shortness of air, weakness Arrhythmias/Ectopy: Rare PVCs ST-T Changes: < [address] depression.5 mm Conclusion: Fair exercise capacity. No evidence of ischemia at peak stress on ECG. Myoview images are reported separately. Electronically signed by : Mone Estrada MD 09/04/2024 21:54:47
--- NOTE | 2024-08-31 11:13 | CA_ITS ---
APPROVED REPORT EXAM: Comprehensive 2D, Doppler, and color-flow Echocardiogram Solder Cream Maker: Rosi Melendrez RVT Ht: 5 ft 5 in Wt: 241lbs BSA: 2.14 BP: 128/78 mmHg Indications: CAD,SOA,EDEMA,HTN,HLD 2D Dimensions LA Volume 32.90 mL LA Volume Index 15.37 mL/m2 (M/F) 16-34 M-Mode Dimensions RVDd 3.07 cm (0.9-2.6) LA Diam 3.18 cm (1.9-4.0) LVDd 4.18 cm (3.5-5.7) LVDs 3.07 cm (3.5-5.7) IVSd 0.95 cm (0.6-1.1) PWd 0.49 cm (0.6-1.1) EF (Teich) 52.40% FS 26.60% EDV (Teich) 77.70 mL TAPSE 1.62 (<1.7) ESV (Teich) 37.00 mL LV Diastology E Decel Time 250 (160-240 msec) E/A Ratio 0.6 Aortic Valve EMERY Index 0.81 cm2/m2 AoV Peak Koby. 115.0 (50-130 cm/s) AO Peak GR. 5.30 mmHg AO Mean GR. 3.20 (<5 mmHg) AO VTI 24.5 (18-25 cm) EMERY (VTI) 1.77 (2.5-4.5 cm2) Mitral Valve MV E Max Koby. 46.0 (40-130 cm/s) MV A Velocity 83.0 (40-130 cm/s) E/A Ratio 0.56 MV PHT 73.0 ms Pulmonary Valve PV Peak Velocity 71.0 (50-150 cm/s) Left Ventricle The left ventricle is normal size. The left ventricular systolic function is low normal. There is increased LV wall thickness. There is normal LV segmental wall motion. The left ventricular diastolic function is normal. LVEF is 50%. Right Ventricle Right ventricle is mildly dilated. Right ventricle is borderline hypokinetic. Atria The left atrium size is normal. The right atrium size is normal. Aortic Valve The aortic valve is mildly thickened. There is no aortic valvular stenosis. No aortic regurgitation is present. Mitral Valve The mitral valve is normal in structure. No evidence of mitral valve stenosis. Trace mitral regurgitation. Tricuspid Valve Tricuspid valve is grossly normal in structure and function. Trace tricuspid regurgitation. There is insufficient TR jet to estimate RVSP. Pulmonic Valve The pulmonary valve is normal in structure. Trace pulmonic regurgitation. Great Vessels The aortic root is normal in size. IVC is normal in size and collapses >50% with inspiration. Pericardium There is no pericardial effusion. Other Information Study Quality: Technically Difficult Conclusion Technically difficult study due to poor acoustic windows. Low normal LV systolic function (LVEF 50%). Mildly dilated RV with borderline hypokinetic RV function. No significant valvular stenosis or regurgitation. In the setting of technically difficult study, future TTE evaluations are suggested with administration of ultrasound enhancing agent to better delineate the LV endocardial borders. Electronically signed by : Mone Estrada MD 09/03/2024 20:41:27
[2024-08-31] MEDS: SODIUM CHLORIDE 0.9% 10ML SYR (RAD ONLY) 10 ML IV ×2 (12:00→13:30)
--- NOTE | 2024-08-31 12:00 | NM_ITS ---
APPROVED REPORT Exam: Nuclear Stress Test Indication: CAD, 1 STENT, HTN, HYPERLIPIDEMIA, FM HX, ANGINA, SOB, FATIGUE Patient Location: Outpatient Stress Tech: Mitzi Sanchez SC Tech:Sola HancockROBERT RT (R)(N)(M) Ht: 5 ft 5 in Wt: 230 lbs Bra Size: D HR: 75 bpm BP: 146/88 mmHg BSA: 2.10 m2 TID: 1.06 BMI: 38.2 History: CAD, 1 STENT, HTN, HYPERLIPIDEMIA, FM HX, ANGINA, SOB, FATIGUE Procedure: Patient exercised on Sid protocol 4:40 minutes and sec, resting heart rate 75 bpm, resting blood pressure 146/88 mmHg, with exercise maximum heart rate achived was 148 bpm which is 99 % of the maximum predicted heart rate and blood pressure was 190/90 mmHg. Test was stopped due to FATIGUE, SOB. Patient has exercise capacity, achieved 5.9 METs of workload on treadmill, the blood pressure response to exercise was . Cardiac Stress and Resting SPECT Images: Cardiac Stress and Resting SPECT images were obtained using technetium 99m Myoview 31.1 mCi stress and 10.19 mCi at rest. Resting and stress imaging in prone and supine positions demonstrate no evidence of fixed or reversible perfusion defects. Gated imaging demonstrates normal global and regional LV systolic function. LVEF is 59%. Conclusion: No evidence of fixed or reversible perfusion defects. Gated imaging demonstrates normal global and regional LV systolic function. LVEF is 59%. Electronically signed by : Mone Estrada MD 09/01/2024 14:15:44
[2024-08-31] MEDS: ISOTOPE MYOVIEW (PER STUDY) 1 DOSE IV (14:26)
== END 2024-08-31 23:59 | disposition home or self-care (01) ==
LOC: RT 11:10
PROVIDERS: PCP Family Medicine; Visit Provider Nurse Practitioner Family
DX: I51.7 Cardiomegaly (principal); R60.0 Localized edema; I25.10 Atherosclerotic heart disease of native coronary artery without angina pectoris; Z82.49 Family history of ischemic heart disease and other diseases of the circulatory system
CPT/HCPCS: 78452; 93017; 93018; 93306; A9502

== ENCOUNTER 2024-11-23 10:44 | Outpatient (CLI) | payer MEDICARE, SELFPAY ==
--- OUTSIDE RECORDS SUMMARY | 2024-09-14 07:30 | XMS_ITS ---
Author Organization [facility] Address [address] [facility] [address] [place] [id number] Care Team Providers Care Occupational Therapist Aide Name Role Phone Moni Head Primary Care Provider Jasmina Bergeron Unavailable [phone] Allergies No Known Allergies Results Component Value Reference Range Notes CBC Venipuncture (in house) Reviewed date:09/22/2024 01:38:32 PM Interpretation:not performed Performing Lab: Notes/Report: not performed P-Comprehensive Metabolic Pa daniel (CMP) Reviewed date:09/16/2024 01:35:00 PM Interpretation:Normal Performing Lab: Notes/Report: Test performed by [facility] [address] [place] [address] , [address], [place] [address] Alvaro Covarrubias MD, Director [employer] CLIA: [id number] Sodium 141 135-145 mmol/L Potassium 4.9 3.5-5.3 [...] Interpretation:Normal Performing Lab: Notes/Report: Test performed by [facility] [address] [place] [address] , [place] [address] Alvaro Covarrubias MD, Director [employer] CLIA: [id number] Cholesterol 168 <200 mg/dL Triglycerides 117 <150 [...] Interpretation:Normal Performing Lab: Notes/Report: Test performed by [facility] [address] [place] [address] , [address], [place] [address] Alvaro Covarrubias MD, Director [employer] CLIA: [id number] TSH reflex to FT4 1.67 0.43-5.25 mU/L [...] Diagnosis [facility] [address] [facility] [address] [place], [place] [id number] 09/14/2024 Jasmina Bergeron Essential hypertensi on I10 [...] * LAURE CANSECODOB: [birth year] (64 yo F)Acc No.[id number]:09/14/2024 Progress Notes Patient: LAURE ESTRADA Provider: ANDRE Youngblood :1960 A ge:64 Y S ex:Female Date:09/14/2024 Address:[address], [id number] Pcp:Moni Head Subjective: * Chief Complaints: * [...] * Images: Billing Information: * Visit Code: 74759 Office Visit, Est Pt., Level 4. * Procedure Codes: 3075F SYST BP GE 130 - 139MM HG. 3079F DIAST BP 80-89 MM HG. * Electronic signature of ANDRE Martinez on 11/23/2024 at 10:51 AM EDT Sign off status: Pending * Provider: ANDRE Youngblood Date: 0 09/14/2024 Generated for Letha ford/Majo/eTransmitting on: 0 11/23/2024 10:51 AM EDT History and Physical Notes * [...]
--- OUTSIDE RECORDS SUMMARY | 2024-09-22 07:15 | XMS_ITS ---
Author Organization [facility] Address [address] [facility] [address] [place] [id number] Care Team Providers Care Professional Driver Name Role Phone Moni Head Primary Care Provider [phone] Jasmina Bergeron [phone] Results Component Value Reference Range Notes CBC Fingerstick (in house) Reviewed date:09/22/2024 03:24:50 PM Interpretation: Performing Lab: Notes/Report: wbc 7.4 3.5 - 10 lym 25.2% 15 - 50 mid 6.7% 2 - 15 gran 68.1% 35 - 80 rbc 5.14 3.5 - 5.5 hgb 12.9 11.5 - 16.5 hct 41.1 35 - 55 mcv 79.8 75 - 100 mch 25.2 25 - 35 mchc 31.6 31 - 38 plat 193 100 - 400 REASON FOR VISIT blood work Encounters Encounter Location Date Provider Diagnosis [facility] [address] [facility] [address] [place] [id number] 09/22/2024 Jasmina Bergeron Essential hypertensi on I10 Assessments Encounter Date Diagnosis (ICD Code) Assessment Notes Treatment Notes Treatment Clinical Notes Section Notes 09/22/2024 Essential hypertension (ICD-10 - I10) Plan Of Treatment No Information Progress Notes * LAURE CANSECODOB: [birth year] (64 yo F)Acc No.[id number]:09/22/2024 Patient: LAURE ESTRADA Provider: ANDRE Youngblood :1960 A ge:64 Y S ex:Female Date:09/22/2024 Address:[address], [id number] Pcp:Moni Head Subjective: * Chief Complaints: * 1 . Blood work. * Medical History: Objective: * Vitals: Assessment: * Assessment: 1. E ssential hypertension - I10 Plan: * Treatment: Value Reference Range w bc 7.4 3.5 - 10 * l ym 25.2% 15 - 50 * m id 6.7% 2 - 15 * g ran 68.1% 35 - 80 * r bc 5.14 3.5 - 5.5 * h gb 12.9 11.5 - 16.5 * h ct 41.1 35 - 55 * m cv 79.8 75 - 100 * m ch 25.2 25 - 35 * m chc 31.6 31 - 38 * p lat 193 100 - 400 * Magui Kelley 09/22/2024 11: 12:29 AM > * Procedure Codes: 3 6416 CAPILLARY BLOOD DRAW, 31831 CBC WITH AUTO DIFF * Images: Billing Information: * Visit Code: * Procedure Codes: 90315 CAPILLARY BLOOD DRAW. 13093 CBC WITH AUTO DIFF. * Electronic signature of ANDRE Martinez on 11/23/2024 at 10:50 AM EDT Sign off status: Pending * Provider: ANDRE Youngblood Date: 0 09/22/2024 Generated for Marcusi liliana/Majo/eTransmitting on: 0 11/23/2024 10:50 AM EDT
--- OUTSIDE RECORDS SUMMARY | 2024-11-16 06:00 | XMS_ITS ---
Author Organization [facility] [address] [facility] [address] [place] [phone] Care Team Providers Care Physical Therapy Director Name Role Phone Moni Head Primary Care Provider [phone] Jasmina Bergeron Unavailable [phone] Allergies No Known Allergies REASON FOR VISIT [...] [address] [place] [id number] 11/16/2024 Jasmina Bergeron Lower extremity pj a [...] They are sending the lab order to [facility]. 11/16/2024 Symptomatic varicose veins of both lower extremities (ICD-10 - I83.893) Will wear compression socks Plan Of Treatment Medication Medication Name Sig Start Date Stop Date Notes hydroCHLOROthiazide 25 MG 1 tablet in th e morning Orally Once a day; Duration: 30 days 11/17/2024 Treatment Notes Assessment Notes Lower extremity edema Spoke with cardiol pabltio about her recent stress test and echo. They would like for her to start on HCTZ and have a BMP in 1 week and f/u in their office in 2-3 weeks. They are sending the lab order to [facility]. Symptomatic varicose veins o f both lower extremities Will wear compression socks Next Appt Details Follow Up: with cardiology, Reason: Progress Notes * LAURE CANSECODOB: [birth year] (64 yo F)Acc No.[id number]:11/16/2024 Progress Notes Patient: LAURE ESTRADA Provider: ANDRE Youngblood :1960 A ge:64 Y S ex:Female Date:11/16/2024 Address:[address], [id number] Pcp:Moni Head Subjective: * Chief Complaints: * [...] extremities Notes: Will wear compression socks * Follow Up: [facility] cardiology * Images: Billing Information: * Visit Code: 39602 Office Visit, Est Pt., Level 3. * Procedure Codes: * Electronic signature of ANDRE Martinez on 11/23/2024 at 10:50 AM EDT Sign off status: Pending * Provider: ANDRE Youngblood Date: 11/16/2024 Generated for Letha ford/Majo/Марина on: 11/23/2024 10:50 AM EDT History and Physical Notes * [...]
--- OUTSIDE RECORDS SUMMARY | 2024-11-23 10:51 | XMS_ITS | Patient Health Record ---
Author Organization [facility] Address [address] [place] [id number] Care Team Providers Care Model Home Sales Greeter Name Role Phone Moni Head Primary Care Provider [phone] Jasmina Bergeron Unavailable [phone] Allergies No Known Allergies Results Component Value [...] - 38 plat 193 100 - 400 H-Glycohemoglobin A1C Reviewed date:08/25/2024 02:50:37 PM Interpretation:6.1 Performing Lab: Notes/Report: HGBA1C 6.1 4.0-6.0 % < 6% Non-Diabetic Level < 7% Controlled Diabetic Level > 8% Poorly Controlled Diabetic Level H-CMP Reviewed date:08/25/2024 02:50:37 PM Interpretation:BUN 19, Bili 1.4 Performing Lab: Notes/Report: NA 141 136-145 mmol/L K 4.2 3.5-5.1 mmoL/L CL 106 98-107 mmol/L CO2 25 22.0-30.0 mmol/L GAP 14.2 5-15 mEq/L BUN 19 7-17 mg/dl CREATT 0.70 0.52-1.04 mg/dl GFRAA 102 >60 ML/MIN EGFR 84 >60 ml/min GLU 98 74-100 mg/dl CA 9.4 8.4-10.2 mg/dl BILIT 1.4 0.2-1.3 mg/dl AST 25 14-36 U/L ALT 21 12-78 U/L TP 6.6 6.3-8.2 g/dl ALB 4.1 3.5-5.0 g/dl GLOB 2.5 1.3-3.2 g/dL AGRATIO 1.6 1.1-1.8 ALP 90 38-126 U/L CBC Venipuncture (in house) Reviewed date:09/22/2024 01:38:32 PM Interpretation:not performed Performing Lab: Notes/Report: not performed P-Comprehensive Metabolic Pa daniel (CMP) Reviewed date:09/16/2024 01:35:00 PM Interpretation:Normal Performing Lab: Notes/Report: Test performed by [facility] [address] [place] [address] , [address], [place] [address] Alvaro Covarrubias MD, Sales Research Analyst CLIA: [id number] Sodium 141 135-145 mmol/L Potassium 4.9 3.5-5.3 [...] Interpretation:Normal Performing Lab: Notes/Report: Test performed by [facility] [address] [place] [address] [address] Diaz C, [place] [address] Alvaro Covarrubias MD, Sales Research Analyst CLIA: [id number] Cholesterol 168 <200 mg/dL Triglycerides 117 <150 [...] Interpretation:Normal Performing Lab: Notes/Report: Test performed by [facility] [address] [place] [address] , [address], [place] [address] Alvaro Covarrubias MD, Sales Research Analyst CLIA: [id number] TSH reflex to FT4 1.67 0.43-5.25 mU/L Reason For Referral Diagnosis 1 Neoplasm of uncertai n behavior of skin of upper extremity (D48.5) [facility] Referring Provider First Name Jasmina Referring Provider Last Name Rubio Referring Provider Speciality Physician Maintenance Welder Referred Provider Dermatology, . Referred Provider Specialty Dermatology General Notes Jasmina Bergeron 02/02 11:39:58 PM > Pt needs appt at [facility] and will need an annual skin exam as well., Roseanna Cabrera 02/04/2024 10:03:56 AM > faxed referral to [facility] Referral Priority Routine Medications Medication SIG (Take, Route, Frequency, Duration) [...] Active hydroCHLOROthiazide 25 MG 1 tablet in th e morning Orally Once a day; Duration: 30 days 11/17/2024 Active Aspirin 81 MG 1 tab(s) orally once a day Active Vitamin D3 50 MCG (1999) as directed orally once a day; Duration: 30 day(s) 10/25/2019 Active Immunizations Vaccine Route Administration Date Status Comme nts DT, 7 YEARS OR OLDER Unknown 07/21/1996 Administered Tetanus Tdap-Adacel (over 7yrs) IM Intramuscular 09/22/2018 Administered Problems Problem Type SNOMED Code ICD Code Onset Dates Problem Status W/U Status Risk Notes Problem Hypertension (30341532) HTN (hypertension) (401.9) Active confirmed Problem Essential hypertension (55351697) Essential hypertension (I10) Active confirmed Problem Anxiety (09039768) Anxiety (F41.9) Active confi rmed Problem Mixed anxiety and depressive disorder (655102487) Depression with anxiety (F41.8) Active confirmed Problem Mixed hyperlipidemia (987850044) Mixed hyperlipidemia (E78.2) Active confirmed Problem Acquired hammer toe of right foot (1014798366822394) Other hammer toe(s) (acquired), right foot (M20.41) Active confirmed Problem Acquired hammer toe of left foot (0536845695865599) Other hammer toe(s) (acquired), left foot (M20.42) Active confirmed Problem Gastroesophageal reflux disease (381821141) Gastroesophageal reflux disease, esophagitis presence not specified (K21.9) Active confirmed Problem Neuropathy (790195728) Neuropathy (G62.9) Active confirmed Problem Insomnia disorder related to another mental disorder (89486233) Psychophysiological insomnia (F51.04) Active confirmed Problem History of placement of stent for coronary artery disease (situation) (040285679) S/P coronary artery stent placement (Z95.5) Active confirmed Vital Signs Heart Rate 83 /min 11/16/2024 Blood pressure diastolic 82 mm Hg 11/16/2024 Height 63 in 11/16/2024 Blood pressure systolic 136 mm Hg 11/16/2024 Weight 241.4 lbs 11/16/2024 BMI 42.76 kg/m2 11/16/2024 Encounters Encounter Location Date Provider Diagnosis [facility] 1209 [facility] [address] [place] [id number] 02/03/2024 Jasmina Crowdy Essential hypertensi on I10 ; Depression with anxiety F41.8 ; Gastroesophageal reflux disease, esophagitis presence not specified K21.9 ; Mixed hyperlipidemia E78.2 ; S/P coronary artery stent placement Z95.5 and Neoplasm of uncertain behavior of skin of upper extremity D48.5 [facility] [address] [place] [id number] 09/14/2024 Jasmina Crowdy Essential hypertensi on I10 ; Depression with anxiety F41.8 ; Gastroesophageal reflux disease, esophagitis presence not specified K21.9 ; Mixed hyperlipidemia E78.2 and S/P coronary artery stent placement Z95.5 [facility] 36 [facility] [address] [place] [id number] 09/22/2024 Jasimna Bergeron Essential hypertensi on I10 [facility] 36 [facility] [address] [place] [id number] 11/16/2024 Jasmina Bergeron Lower extremity pj a R60.0 and Symptomatic varicose veins of both lower extremities I83.893 [facility] [address] [facility] [address] [place] [id number] 08/19/2024 Jasmina Bergeron Elevated bilirubin R 17 Assessments Encounter Date Diagnosis (ICD Code) Assessment Notes Treatment Notes Treatment Clinical Notes Section Notes 02/03/2024 Essential hypertension (ICD-10 - I10) 02/03/2024 Depression with anxiety (ICD-10 - F41.8) 08/19/2024 Elevated bilirubin (ICD-10 - R17) 09/14/2024 Essential hypertension (ICD-10 - I10) 09/14/2024 Depression with anxiety (ICD-10 - F41.8) 09/22/2024 Essential hypertension (ICD-10 - I10) 11/16/2024 Lower extremity edema (ICD-10 - R60.0) Spoke with cardiology about her recent stress test and echo. They would like for her to start on HCTZ and have a BMP in 1 week and f/u in their office in 2-3 weeks. They are sending the lab order to [facility]. 11/16/2024 Symptomatic varicose veins of both lower extremities (ICD-10 - I83.893) Will wear compression socks 09/14/2024 Gastroesophageal reflux disease, esophagitis presence not specified (ICD-10 - K21.9) 02/03/2024 Gastroesophageal reflux disease, esophagitis presence not specified (ICD-10 - K21.9) 02/03/2024 Mixed hyperlipidemia (ICD-10 - E78.2) 09/14/2024 Mixed hyperlipidemia (ICD-10 - E78.2) 09/14/2024 S/P coronary artery stent placement (ICD-10 - Z95.5) We normally do not fill her plavix. Will fill today but she was supposed to see cardiology last month. She will make appt. 02/03/2024 S/P coronary artery stent placement (ICD-10 - Z95.5) We normally do not fill her plavix. Will fill today but she was supposed to see cardiology last month. She will make appt. 02/03/2024 Neoplasm of uncertain behavior of skin of upper extremity (ICD-10 - D48.5) Plan Of Treatment Pending Test Test Name Order Date DEXA Hip and Spine 07/30/2023 Mammogram 07/30/2023 H-TSH 02/03/2024 H-CBC 02/03/2024 H-Lipid Panel 02/03/2024 H-CMP 02/03/2024 H-Glycohemoglobin A1C 02/03/2024 H-Bilirubin, Total 08/19/2024 Insurance Providers Payer Name Payer Address Payer Phone Subscriber Number Group Number Insured Name Patient Relationship to Insured Coverage Start Date Coverage End Date MEDICARE PART B [address] [address] [place] [address] [id number] [employer] Self - patient is the insured FRANCISCO JAVIER MEDICARE SUPPLEMENT [address] [address] [place], [place] [id number] [employer] Self - patient is the insured Medical (General) History Medical History History ICD Code CAD with stent placement when hositalize d 11/02/18 Surgical History Surgery Date(Month/Year) rt arm 10/21 Heart stent 11/01 Hospitalization History Reason Date(Month/Year) [facility] ER chest pain. 11/02/18
[2024-11-23 12:39] LABS: Anion Gap 18.3 mEq/L (5-15); Blood Urea Nitrogen 26 mg/dl (7-17); Calcium 9.9 mg/dl (8.4-10.2); Carbon Dioxide 28 mmol/L (22.0-30.0); Chloride 98 mmol/L (98-107); Creatinine,Serum 0.90 mg/dl (0.52-1.04); Estimated Glomerular Filt Rate 63 ml/min (>60); GFR (African American) 76 ML/MIN (>60); Glucose 107 mg/dl (74-100); Magnesium 2.1 mg/dl (1.6-2.3); Potassium 4.3 mmoL/L (3.5-5.1); Sodium 140 mmol/L (136-145)
== END 2024-11-23 23:59 | disposition home or self-care (01) ==
PROVIDERS: PCP Physician Assistant; Visit Provider Physician Assistant
DX: R60.0 Localized edema (principal)
CPT/HCPCS: 36415; 80048; 83735

== ENCOUNTER 2024-11-28 02:44 | Emergency (ER) | payer MEDICARE, SELFPAY ==
--- OUTSIDE RECORDS SUMMARY | 2024-09-14 07:30 | XMS_ITS ---
Author Organization [facility] Address [address] [facility] [address] [place] [id number] Care Team Providers Care Harness Placer Name Role Phone Moni Head Primary Care Provider [phone] Jasmina Bergeron Unavailable [phone] Allergies No Known Allergies Results Component Value Reference Range Notes CBC Venipuncture (in house) Reviewed date:09/22/2024 01:38:32 PM Interpretation:not performed Performing Lab: Notes/Report: not performed P-Comprehensive Metabolic Pa daniel (CMP) Reviewed date:09/16/2024 01:35:00 PM Interpretation:Normal Performing Lab: Notes/Report: Test performed by [facility] [address] [place] [address] , [address], [place] [address] Alvaro Covarrubias MD, Hotel Administrative Assistant CLIA: [id number] Sodium 141 135-145 mmol/L Potassium 4.9 3.5-5.3 [...] Interpretation:Normal Performing Lab: Notes/Report: Test performed by [facility] [address] [place] [address] , [place] [address] Alvaro Covarrubias MD, Hotel Administrative Assistant CLIA: [id number] Cholesterol 168 <200 mg/dL Triglycerides 117 <150 [...] Interpretation:Normal Performing Lab: Notes/Report: Test performed by [facility] [address] [place] [address] , [address], [place] [address] Alvaro Covarrubias MD, Hotel Administrative Assistant CLIA: [id number] TSH reflex to FT4 1.67 0.43-5.25 mU/L [...] Provider Diagnosis [facility] [address] [facility] [address] [place], [place] [id number] 09/14/2024 Jasmina Bergeron Essential hypertensi on I10 [...] * LAURE CANSECODOB: [birth year] (64 yo F)Acc No.[id number]:09/14/2024 Progress Notes Patient: LAURE ESTRADA Provider: ANDRE Youngblood :1960 A ge:64 Y S ex:Female Date:09/14/2024 Address:[address], [id number] Pcp:Moni Head Subjective: * Chief Complaints: * [...] * Images: Billing Information: * Visit Code: 95753 Office Visit, Est Pt., Level 4. * Procedure Codes: 3075F SYST BP GE 130 - 139MM HG. 3079F DIAST BP 80-89 MM HG. * Electronic signature of ANDRE Martinez on 11/28/2024 at 03:02 AM EDT Sign off status: Pending * Provider: ANDRE Youngblood Date: 0 09/14/2024 Generated for Letha ford/Majo/eTransmitting on: 0 11/28/2024 03:02 AM EDT History and Physical Notes * [...]
--- OUTSIDE RECORDS SUMMARY | 2024-09-22 07:15 | XMS_ITS ---
Author Organization Suzi Address 1210 [facility] [address] [place] [id number] Care Team Providers Care Aircraft Inspector Name Role Phone Moni Head Primary Care Provider Jasmina Bergeron [phone] Results Component Value Reference Range Notes CBC [...] Encounter Location Date Provider Diagnosis Suzi 1210 [facility] [address] [place] [id number] 09/22/2024 Jasmina Bergeron Essential hypertensi on I10 Assessments Encounter Date Diagnosis (ICD Code) Assessment Notes Treatment Notes Treatment Clinical Notes Section Notes 09/22/2024 Essential hypertension (ICD-10 - I10) Plan Of Treatment No Information Progress Notes * LAURE CANSECODOB: [birth year] (64 yo F)Acc No.[id number]:09/22/2024 Patient: LAURE ESTRADA Provider: ANDRE Youngblood :1960 A ge:64 Y S ex:Female Date:09/22/2024 Address:[address], [id number] Pcp:Moni Head Subjective: * Chief Complaints: * [...] Procedure Codes: 3 6416 CAPILLARY BLOOD DRAW, 63878 CBC WITH AUTO DIFF * Images: Billing Information: * Visit Code: * Procedure Codes: 21733 CAPILLARY BLOOD DRAW. 24314 CBC WITH AUTO DIFF. * Electronic signature of ANDRE Martinez on 11/28/2024 at 03:01 AM EDT Sign off status: Pending * Provider: ANDRE Youngblood Date: 0 09/22/2024 Generated for Marcusi liliana/Majo/eTransmitting on: 11/28/2024 03:01 AM EDT
--- OUTSIDE RECORDS SUMMARY | 2024-11-16 06:00 | XMS_ITS ---
Author Organization [facility] [address] [facility] [address] [place] [id number] Care Team Providers Care Lithographic Plate Maker Name Role Phone Moni Head Primary Care Provider [phone] Jasmina Bergeron Unavailable [phone] Allergies No Known Allergies REASON FOR VISIT [...] [address] [place] [phone] 11/16/2024 Jasmina Bergeron Lower extremity pj a [...] They are sending the lab order to [facility]. 11/16/2024 Symptomatic varicose veins of both [...] They are sending the lab order to [facility]. Symptomatic varicose veins o f both lower extremities Will wear compression socks Next Appt Details Follow Up: with cardiology, Reason: Progress Notes * LAURE CANSECODOB: [birth year] (64 yo F)Acc No.[id number]:11/16/2024 Progress Notes Patient: LAURE ESTRADA Provider: ANDRE [...] < 90MM HG * Follow Up: w [facility] cardiology * Images: Billing Information: * Visit Code: 06299 Office Visit, Est Pt., Level 3. * [...] Date: 11/16/2024 Generated for Letha ford/Majo/Suyapaitting on: 11/28/2024 03:02 AM EDT History and Physical [...]
--- NOTE | 2024-11-28 02:40 | ECG_ITS ---
APPROVED REPORT Exam: Resting ECG HR:86 bpm ECG Measurements Heart Rate 86 AXES NV 171 P 54 QRSd 85 QRS 78 QT 345 T 23 QTc 388 Conclusion SINUS RHYTHM LOW QRS VOLTAGE IN PRECORDIAL LEADS [QRS DEFLECTION < 1.0 mV IN CHEST LEADS] No STEMI Electronically signed by : LANI MARTIN, 11/28/2024 23:02:11
[2024-11-28 02:45] VITALS: BP 165/113; PULSE 101; RESP 20; TEMP 36.7; O2SAT 99; BMI 39.9
--- NOTE | 2024-11-28 02:45 | XR_ITS ---
PROCEDURE INFORMATION: Exam: XR Chest Exam date and time: 11/28/2024 2:55 AM Age: 64 years old Clinical indication: Pain; Other: L side cp TECHNIQUE: Imaging protocol: Radiologic exam of the chest. Views: 2 views. COMPARISON: CR XR CHEST PORTABLE 01/23/2023 6:08 AM FINDINGS: Lungs: Chronic interstitial change. No consolidation. Pleural spaces: Unremarkable. No pleural effusion. No pneumothorax. Heart/Mediastinum: Unremarkable. No cardiomegaly. Bones/joints: Unremarkable. IMPRESSION: No acute findings.
[2024-11-28 02:58] LABS: Lactate Venous 1.5 mmol/L (0.4-2.0); VBG HCO3 24.5 mmol/L (23-30); VBG PCO2 45.6 mmol/L (35-51); VBG PH 7.35 mmol/L (7.31-7.41); VBG PO2 37.0 mmol/L (28-40)
[2024-11-28] MEDS: ASPIRIN 81MG CHEWABLE TABLET 324 MG PO (02:59)
[2024-11-28 03:00] VITALS: BP 135/109; PULSE 86; O2SAT 99
[2024-11-28] MEDS: NITROGLYCERIN 0.4MG SL TABLET 0.4 MG SL (03:02)
--- OUTSIDE RECORDS SUMMARY | 2024-11-28 03:02 | XMS_ITS | Patient Health Record ---
Author Organization [facility] Address [address] [phone] Care Team Providers Care R Developer Name Role Phone Moni Head Primary Care Provider [phone] Jasmina Bergeron Unavailable [phone] Allergies No Known Allergies Results Component Value [...] - 38 plat 193 100 - 400 CBC Venipuncture (in house) Reviewed date:09/22/2024 01:38:32 PM Interpretation:not performed Performing Lab: Notes/Report: not performed P-Comprehensive Metabolic Pa daniel (CMP) Reviewed date:09/16/2024 01:35:00 PM Interpretation:Normal Performing Lab: Notes/Report: Test performed by [facility] [address] [place] [address] , [address], [place] [address] Alvaro Covarrubias MD, Nurse Instructor CLIA: [id number] Sodium 141 135-145 mmol/L Potassium 4.9 3.5-5.3 [...] Interpretation:Normal Performing Lab: Notes/Report: Test performed by [facility] , [address], [place] [address] Alvaro Covarrubias MD, Nurse Instructor CLIA: [id number] Cholesterol 168 <200 mg/dL Triglycerides 117 <150 [...] Interpretation:Normal Performing Lab: Notes/Report: Test performed by [facility] [address] , [address], [place] [address] Alvaro Covarrubias MD, Nurse Instructor CLIA: [id number] TSH reflex to FT4 1.67 0.43-5.25 mU/L H-CMP Reviewed date:08/25/2024 02:50:37 PM Interpretation:BUN 19, [...] AGRATIO 1.6 1.1-1.8 ALP 90 38-126 U/L H-Glycohemoglobin A1C Reviewed date:08/25/2024 02:50:37 PM Interpretation:6.1 Performing Lab: Notes/Report: HGBA1C 6.1 4.0-6.0 % < 6% Non-Diabetic Level < 7% Controlled Diabetic Level > 8% Poorly Controlled Diabetic Level Reason For Referral Diagnosis 1 Neoplasm of 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 Referred Provider Specialty Dermatology General Notes Jasmina Bergeron 02/02 11:39:58 PM > Pt needs appt at [facility] and will need an annual skin exam [...] Vaccine Route Administration Date Status Comme nts Tetanus Tdap-Adacel (over 7yrs) IM Intramuscular 09/22/2018 Administered DT, 7 YEARS OR OLDER Unknown 07/21/1996 Administered Problems Problem Type SNOMED Code ICD Code Onset Dates Problem Status W/U Status Risk Notes Problem Hypertension (55241671) HTN (hypertension) (401.9) Active confirmed Problem Essential hypertension (47599553) Essential hypertension (I10) Active confirmed Problem Anxiety (75109189) Anxiety (F41.9) Active confi rmed Problem Mixed anxiety and depressive disorder (888618674) Depression with anxiety (F41.8) Active confirmed Problem Mixed hyperlipidemia (121291335) Mixed hyperlipidemia (E78.2) Active confirmed Problem Acquired hammer toe of right foot (9152260892769181) Other hammer toe(s) (acquired), right foot (M20.41) Active confirmed Problem Acquired hammer toe of left foot (1697344961011250) Other hammer toe(s) (acquired), left foot (M20.42) Active confirmed Problem Gastroesophageal reflux disease (949958916) Gastroesophageal reflux disease, esophagitis presence not specified (K21.9) Active confirmed Problem Neuropathy (191502688) Neuropathy (G62.9) Active confirmed Problem Insomnia disorder related to another mental disorder (13096125) Psychophysiological insomnia (F51.04) Active confirmed Problem History of placement of stent for coronary artery disease (situation) (159556864) S/P coronary artery stent placement (Z95.5) Active confirmed Vital Signs Heart Rate 83 /min 11/16/2024 Blood pressure diastolic 82 mm Hg 11/16/2024 Height 63 in 11/16/2024 Blood pressure systolic 136 mm Hg 11/16/2024 Weight 241.4 lbs 11/16/2024 BMI 42.76 kg/m2 11/16/2024 Encounters Encounter Location Date Provider Diagnosis [facility] 1209 [facility] [address] [place] [id number] 02/03/2024 Jasmina Crowdy Essential hypertensi on I10 ; Depression with anxiety F41.8 ; Gastroesophageal reflux disease, esophagitis presence not specified K21.9 ; Mixed hyperlipidemia E78.2 ; S/P coronary artery stent placement Z95.5 and Neoplasm of uncertain behavior of skin of upper extremity D48.5 [facility] [address] [place] [id number] 09/14/2024 Jasmina Crowdy Essential hypertensi on I10 ; Depression with anxiety F41.8 ; Gastroesophageal reflux disease, esophagitis presence not specified K21.9 ; Mixed hyperlipidemia E78.2 and S/P coronary artery stent placement Z95.5 [facility] [address] [place] [id number] 09/22/2024 Jasmina Bergeron Essential hypertensi on I10 [facility] [address] [facility] [address] [place] [id number] 11/16/2024 Jasmina Bergeron Lower extremity pj a R60.0 and Symptomatic varicose veins of both lower extremities I83.893 [facility] [address] [facility] [address] [place] [id number] 08/19/2024 Jasmina Bergeron Elevated bilirubin R 17 [...] They are sending the lab order to [facility]. 11/16/2024 Symptomatic varicose veins of both lower extremities (ICD-10 - I83.893) Will wear compression socks 09/22/2024 Essential hypertension (ICD-10 - I10) 09/14/2024 Essential hypertension (ICD-10 - I10) 09/14/2024 Depression with anxiety (ICD-10 - F41.8) 08/19/2024 Elevated bilirubin (ICD-10 - R17) 02/03/2024 Essential hypertension (ICD-10 - I10) 02/03/2024 Depression with anxiety (ICD-10 - F41.8) 02/03/2024 Gastroesophageal reflux disease, esophagitis presence not specified (ICD-10 - K21.9) 09/14/2024 Gastroesophageal reflux disease, esophagitis presence not specified (ICD-10 - K21.9) 09/14/2024 Mixed hyperlipidemia (ICD-10 - E78.2) 02/03/2024 Mixed hyperlipidemia (ICD-10 - E78.2) 02/03/2024 S/P coronary artery stent placement (ICD-10 - Z95.5) We normally do not fill her plavix. Will fill today but she was supposed to see cardiology last month. She will make appt. 09/14/2024 S/P coronary artery stent placement (ICD-10 [...] Date MEDICARE PART B [address] [address] [place] [address] [id number] [employer] Self - patient is the insured [employer]AVIER MEDICARE SUPPLEMENT [address] [address] [place], [place] [id number] [employer] Self - patient is the insured Medical (General) History Medical History History ICD Code CAD with stent placement when hositalize d 11/02/18 Surgical History Surgery Date(Month/Year) rt arm 10/21 Heart stent 11/01 Hospitalization History Reason Date(Month/Year) [facility] ER chest pain. 11/02/18
[2024-11-28 03:05] LABS: Albumin Level 4.7 g/dl (3.5-5.0); Chloride 101 mmol/L (98-107); Potassium 4.0 mmoL/L (3.5-5.1); Sodium 139 mmol/L (136-145)
[2024-11-28 03:08] LABS: Alanine Aminotransferase 23 U/L (12-78); Albumin/Globulin Ratio 1.4 (1.1-1.8); Alkaline Phosphatase 121 U/L (38-126); Anion Gap 15.0 mEq/L (5-15); Aspartate Amino Transferase 33 U/L (14-36); Bilirubin,Total 1.4 mg/dl (0.2-1.3); Blood Urea Nitrogen 26 mg/dl (7-17); Calcium 9.9 mg/dl (8.4-10.2); Carbon Dioxide 27 mmol/L (22.0-30.0); Creatinine Clearance Estimated 96 mL/min (50-200); Creatinine,Serum 0.80 mg/dl (0.52-1.04); Estimated Glomerular Filt Rate 72 ml/min (>60); GFR (African American) 87 ML/MIN (>60); Globulin 3.4 g/dL (1.3-3.2); Glucose 111 mg/dl (74-100); Hematocrit 43.3 % (37.0-47.0); Hemoglobin 13.1 g/dL (12.2-16.2); Immature Granulocytes % 0.3 %; Mean Corpuscular HGB Conc 30.3 g/dL (31.8-35.4); Mean Corpuscular Hemoglobin 24.7 pg (27.0-31.2); Mean Corpuscular Volume 81.7 fl (81-99); Nucleated Red Blood Cells % 0 %; Platelet Count 219 K/mm3 (142-424); Red Blood Count 5.30 M/mm3 (4.20-5.40); Red Cell Distribution Width-SD 46.7 fL; Total Protein,Serum 8.1 g/dl (6.3-8.2); White Blood Count 10.3 K/mm3 (4.8-10.8)
[2024-11-28 03:30] VITALS: BP 138/82; PULSE 78; O2SAT 98
[2024-11-28] MEDS: RINGERS SOLUTION,LACTATED 500 ML 999 ML IV (03:32)
[2024-11-28 04:13] LABS: Troponin I < 0.01 ng/ml (0.00-0.034)
--- NOTE | 2024-11-28 04:34 | ED_ITS ---
Discharge Plan Disposition Patient Disposition: Home, Self-Care Condition: Good Prescriptions Prescriptions: No Action famotidine [[place] [facility] (famotidine)] 20 mg tablet 20 mg PO DAILY atorvastatin 40 mg tablet 40 mg PO DAILY hydrochlorothiazide 25 mg tablet 25 mg PO DAILY clopidogrel 75 mg tablet See Rx Instructions .ROUTE .COMPLEX Qty: 90 1RF Dose Instruction: TAKE 1 TABLET BY MOUTH EVERY DAY Rx Instructions: TAKE 1 TABLET BY MOUTH EVERY DAY irbesartan 150 mg tablet See Rx Instructions .ROUTE .COMPLEX Qty: 30 5RF Dose Instruction: TAKE ONE TABLET BY MOUTH EVERY DAY Rx Instructions: TAKE ONE TABLET BY MOUTH EVERY DAY metoprolol succinate 25 MG tablet extended release 24 hr 25 mg PO DAILY Qty: 30 4RF cefdinir 300 mg capsule 300 mg PO BID 10 Days Qty: 20 0RF Activity Restrictions/Add. Instructions Additional Instructions/Restrictions: You were evaluated in the ER and are believed to be appropriate for discharge at this time. Continue taking all your home medications as prescribed. Follow-up with cardiology as scheduled. Follow-up closely with your primary care doctor. Return to the ER with any new, worsening, or otherwise concerning symptoms. Clinical Impressions Clinical Impression: Anxiety Chest pain Qualifiers: Chest pain type: precordial pain Qualified Code(s): R07.2 - Precordial pain Print Language Print Language: [place] Discharge ED Provider: Praveen Jimenez General Chief Complaint: Chest Pain Stated Complaint: chest pain Time Seen by Provider: 11/28/24 02:45 Mode of Arrival: Ambulatory Source of Information: Patient Description of Symptoms (Recalled from ER Triage Doc. by RN): pt presents to the ED d/t complaints of chest pain starting at 1230. pt states hx of 1 stent. pt states 6/10 History of Present Illness HPI narrative: 64-year-old female presents to the ER complaining of chest pain that she reports started approximately 5 hours prior to arrival, however when it persisted she took antacid medications around 1230 and her symptoms did not get better so she became progressively more worried about them and came to the ER. Patient describes a burning/sharp sensation starting in the left upper quadrant of her abdomen radiating up the middle of her chest. She has no pain radiating into the arm or jaw but states her left arm feels funny . She has no dizziness, numbness, weakness, nausea, vomiting, diarrhea, or other abdominal pain. Patient does still have her gallbladder but has no right upper quadrant pain. She reports no alcohol use. Daughter at bedside adds to history stating patient is under extreme stress and she thinks anxiety is significantly contributing. Patient does get tearful when talking to me about her symptoms and states that she is scared. She does have a history of 1 stent and follows with cardiology. Related Data Home Medications ?Medication ?Instructions ?Recorded ?Confirmed famotidine 20 mg tablet (Acid 20 mg PO DAILY Heartburn 06/13/20 11/17/24 [facility] Assessor (famotidine)) atorvastatin 40 mg tablet 40 mg PO DAILY 01/22/2208/09 hydrochlorothiazide 25 mg tablet 25 mg PO DAILY 11/17/24 Previous Rx's ?Medication ?Instructions ?Recorded metoprolol succinate 25 mg 25 mg PO DAILY ##30 9 tablet,extended release 24 hr clopidogrel 75 mg tablet See Rx Instructions .Route 0 08/28/23 .COMPLEX #90 tabs cefdinir 300 mg capsule 300 mg PO BID 10 days #20 ca ps 01/11/24 irbesartan 150 mg tablet See Rx Instructions .Route 0 08/24/24 .COMPLEX #30 tabs Allergies Allergy/AdvReac Type Severity Reaction Status Date / Time No Known Allergies Allergy Verified 11/17/24 14:42 [facility] Disclaimer: The information contained in this section may have been updated after the patient was seen, as this information can be updated by other users. Medical History Edema of both lower extremities Claudication Leg pain HLD (hyperlipidemia) Social History Smoking Status: Never smoker alcohol intake: never counseling provided: none substance use type: denies use current occupational status: employed Travel in the last 8 weeks?: Inside the [place] housing: house caffeine: Yes Other Medical History Have you received the Flu Vaccine for this season: No Have you received the Pneumonia Vaccine: No ROS Obtained: Yes Systems reviewed as appropriate & no additional complaints except as documented Per HPI Physical Exam General General appearance: alert, in no apparent distress and anxious Head Head exam: atraumatic and normocephalic Eye Eye exam: Present PERRL and EOMI ENT ENT exam: Present mucous membranes moist Neck Neck exam: Present normal inspection and full ROM Chest Chest inspection: Present symmetric chest wall rise; Absent tenderness Respiratory Respiratory exam: Present normal lung sounds bilaterally; Absent respiratory distress, wheezes or stridor Cardiovascular Cardiovascular exam: Present regular rate and normal rhythm Abdominal Exam Abdominal exam: Present soft; Absent distention, tenderness, guarding or rebound Extremities Exam Extremities exam: Present full ROM Neurological Exam Neurological exam: Present alert and oriented X3; Absent motor sensory deficit Psychiatric Psychiatric exam: Present normal affect and normal mood Skin Skin exam: Present warm and dry HEART Score HEART Score HEART Score assessment performed?: Yes History (anamnesis): Slightly suspicious ECG: Non-specific disturbance Age: 45-65 years Risk factors: Atherosclerosis history Troponin: </= normal limit HEART Score: 4 Critical Care Critical Care Time Critical Care Time: No Medical Decision Making Medical Records Medical records reviewed: Yes I reviewed the patient's medical records. MR Comment: Records reviewed by me demonstrate patient was seen in cardiology clinic on 11/17/2024, 11 days ago. She had an EKG performed which was reported as sinus rhythm with right axis deviation and low voltage in the precordial leads, she had edema of the lower extremities, plan was to start diuretics as prescribed by PCP, have a BMP rechecked in 1 week, return in 2 weeks for recheck. Patient reports she does have follow-up on of this week. Records do demonstrate an echo performed in August 2024 with LVEF 50%, no other acute abnormalities though echo was limited due to acoustic windows Moose Inquiry Pt receiving controlled substance: No Vital Signs Vital Signs: 11/28/24 02:45 11/28/24 03:00 11/28/24 03:30 Temperature 98.1 F Temperature Source Oral Pulse Rate 86 78 Pulse Rate [Right Radial] 101 H Respiratory Rate 20 Blood Pressure 135/109 H 138/82 Blood Pressure [Right Arm] 165/113 H Blood Pressure Mean [Right Arm] 130 Blood Pressure Position [Right Arm] Supine 02 Sat by Pulse Oximetry 99 99 98 Oxygen Delivery Method Room Air Lab Data Labs: Lab Results 11/28/24 02:48: WBC 10.3, RBC 5.30, Hgb 13.1, Hct 43.3, MCV 81.7, MCH 24.7 L, M CHC 30.3 L, RDW 15.8, Plt Count 219, MPV 12.3 H, Neut % (Auto) 66.9, Lymph % (Auto) 21.7, [place] % (Auto) 7.6, Eos % (Auto) 2.6, Baso % (Auto) 0.9, Neut # (Auto) 6.9, Lymph # (Auto) 2.2, [place] # (Auto) 0.8, Eos # (Auto) 0.3, Baso # (Auto) 0.1, D-Dimer 0.63 H, Sodium 139, Potassium 4.0, Chloride 101, Carbon Dioxide 27, Anion Gap 15.0, BUN 26 H, Creatinine 0.80, Estimated Creat Clear 96, Estimated GFR 72, Est GFR ( Amer) 87, Glucose 111 H, Calcium 9.9, Total Bilirubin 1.4 H, AST 33, ALT 23, Alkaline Phosphatase 121, Troponin I < 0.01, N T-Pro-B Natriuret Pep 276 H, Total Protein 8.1, Albumin 4.7, Globulin 3.4 H, Albumin/Globulin Ratio 1.4, Lipase 240 11/28/24 02:51: VBG pH 7.35, VBG pCO2 45.6, VBG pO2 37.0, VBG HCO3 24.5, VBG Total CO2 25.9, VBG O2 Saturation 68.2, VBG Base Excess -1.1, VBG Lactic Acid 1.5 11/28/24 05:50: Troponin I < 0.01 11/28/24 02:48 11/28/24 02:48 Response Orders (Tests/Meds): ED MEDICATIONS Generic Name Dose Route Start Last Admin Trade Name Freq PRN Reason Stop Dose Admin Nitroglycerin 0.4 mg 11/28/24 02:45 11/28/24 03:02 Nitroglycerin 0.4mg Sl Tablet SL 11/29/24 02:45 0.4 mg Q5MINP PRN Administration Chest Pain Discontinued Medications Generic Name Dose Route Start Last Admin Trade Name Freq PRN Reason Stop Dose Admin Aspirin 324 mg 11/28/24 02:45 11/28/24 02:59 Aspirin 81mg Chewable Tablet PO 11/28/24 02:46 324 mg ONCE ONE Administration Hydroxyzine Pamoate 50 mg 11/28/24 03:07 11/28/24 03:33 Hydroxyzine Pamoate 25mg Capsule PO 11/28/24 03:08 50 mg ONCE ONE Administration Lactated Ringer's 500 mls @ 999 mls/hr 11/28/24 03:25 11/28/24 03:32 Lactated Ringer's 500ml IV 11/28/24 03:55 999 mls/hr .Q31M ONE Administration ORDERS Category Date Time Status XR chest 2V Stat Exams 11/28/24 02:45 Completed BNP [NT Pro Brain Natriuretic Pep.] Stat Lab 11/28/24 02:48 Completed Complete Blood Count Auto Diff Stat Lab 11/28/24 02:48 Completed Comprehensive Metabolic Panel Stat Lab 11/28/24 02:48 Completed D-Dimer Stat Lab 11/28/24 02:48 Completed Lipase Stat Lab 11/28/24 02:48 Completed Troponin I Q3H Lab 11/28/24 05:50 Completed Troponin I Q3H Lab 11/28/24 08:45 Ordered Troponin I Stat Lab 11/28/24 02:48 Completed Venous Blood Gas Stat RT 11/28/24 02:51 Completed MDM Narrative Medical Decision Narrative: In summary, this 64-year-old female with comorbidities described in the HPI which do include CAD and may not be at goal therapy presents to the emergency department today with chest pain. On initial evaluation patient is hemodynamically stable, afebrile, chest pain is not reproducible on exam, overall exam is unremarkable aside from extremely anxious patient who gets tearful when talking about her fear of having a cardiac event. Differential diagnosis includes but is not limited to ACS, PE, esophageal spasm, patient reports a history of heartburn treated with famotidine which I considered is a possibility as well, also considered pancreatitis, electrolyte abnormality, anxiety, dehydration, pneumothorax, among others. Based on these concerns, I ordered serum labs, chest x-ray, cardiac workup, lipase. ECG personally interpreted demonstrates normal sinus rhythm, rate 86, normal axis, normal TN and QTc, no STEMI. Patient received aspirin, nitro, LR, hydroxyzine initially for treatment. Labs personally reviewed demonstrate no leukocytosis or anemia, normal platelets, VBG normal, CMP with mild prerenal azotemia, patient is receiving IV fluids. Bilirubin similar to prior at 1.4 with no transaminitis, troponin undetectably low less than 0.01 initially. Repeat troponin pending. Lipase normal at 240. D-dimer slightly abnormal at 0.63 but by years criteria PE is excluded. BNP is only slightly elevated at 276, without clinical findings of fluid overload this will not change management lead. XR personally interpreted demonstrates no acute intrathoracic abnormality, see radiology read for final interpretation.. On reassessment patient is completely symptom-free at this time. She is resting much more comfortably and states she feels well. Patient was placed in the ED observation at 0400 for serial troponins to rule out evolving AR and preclude unnecessary admission. 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 She remains asymptomatic. Repeat troponin also undetectably low less than 0.01. At this time I believe patient is appropriate for discharge. She is comfortable with this plan. She already has cardiology follow-up scheduled for this week which is perfect and I recommended she keep this appointment. Patient was given instructions on symptomatic management, follow up instructions, and return precautions for the emergency department. Patient indicated understanding and was discharged in stable condition. Total time in ED observation: 3 hours 17 minutes
[2024-11-28 05:01] LABS: Lipase 240 U/L (23-300)
[2024-11-28 05:11] LABS: NT Pro Brain Natriuretic Pep. 276 pg/mL (0-125)
[2024-11-28 06:02] LABS: D-Dimer 0.63 ug/mL (0.0-0.5)
[2024-11-28 06:52] LABS: Troponin I < 0.01 ng/ml (0.00-0.034)
[2024-11-28 07:36] VITALS: BP 143/82; PULSE 74; PULSE 86; RESP 15; TEMP 36.6; O2SAT 99
== END 2024-11-28 07:41 | disposition home or self-care (01) ==
PROVIDERS: Emergency Provider Emergency Medicine; PCP Physician Assistant
DX: R07.2 Precordial pain (principal); R10.12 Left upper quadrant pain; F41.9 Anxiety disorder, unspecified
CPT/HCPCS: 71046; 80053; 82803; 83690; 83880; 84484; 85025; 85378; 93005; 99285; J7120

== ENCOUNTER 2025-01-26 09:43 | Outpatient (CLI) | payer MEDICARE, SELFPAY ==
--- OUTSIDE RECORDS SUMMARY | 2024-02-03 11:30 | XMS_ITS ---
[facility] [address] [place] [id number] Care Team Providers Care Employee Adviser Name Role Phone Moni Head Primary Care Provider Jasmina Bergeron Unavailable [phone] Allergies No Known Allergies Reason For Referral Diagnosis 1 Neoplasm of uncertai n behavior of skin of upper extremity (D48.5) [facility] Referring Provider First Name Jasmina Referring Provider Last Name Rubio Referring Provider Speciality Physician Geological Engineering Teacher Referred Provider Dermatology, . Referred Provider Specialty Dermatology General Notes Jasmina Bergeron 02/02 11:39:58 PM > Pt needs appt at [facility] and will need an annual skin exam as well., Roseanna Cabrera 02/04/2024 10:03:56 AM > faxed referral to [facility] Referral Priority Routine REASON FOR VISIT refills Medications Medication SIG (Take, Route, Frequency, Duration) Notes Start Date End Date Status Vitamin D3 50 MCG (1999) as directed orally once a day; Duration: 30 day(s) 10/25/2019 Active Irbesartan 150 MG 1 tab(s) orally once a day; Duration: 30 days patient needs appt Active Venlafaxine HCl ER 75 MG 1 cap(s) orally once a day; Duration: 90 days Active Famotidine 20 MG 1 tab(s) orally once daily; Duration: 90 days Active Atorvastatin Calcium 40 MG 1 tab(s) orally once a day; Duration: 90 days Active Metoprolol Succinate ER 25 MG take 1 tablet by mouth every day orally once a day; Duration: 90 days Active Irbesartan 150 MG 1 tab(s) orally once a day; Duration: 90 days Active Clopidogrel Bisulfate 75 MG 1 tab(s) orally once a day; Duration: 90 days Active Aspirin 81 MG 1 tab(s) orally once a day Active Vital Signs Weight 238.2 lbs 02/03/2024 Blood pressure systolic 112 mm Hg 02/03/20 24 Blood pressure diastolic 70 mm Hg 024 Heart Rate 107 /min 02/03/2024 Height 63 in 02/03/2024 BMI 42.19 kg/m2 02/03/2024 Encounters Encounter Location Date Provider Diagnosis [facility] [address] [facility] [address] [place], [place] [id number] 02/03/2024 Jasmina Rubio Essential hypertensi on I10 ; Depression with anxiety F41.8 ; Gastroesophageal reflux disease, esophagitis presence not specified K21.9 ; Mixed hyperlipidemia E78.2 ; S/P coronary artery stent placement Z95.5 and 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 Will fill today but she was supposed to see cardiology last month. She will make appt. 02/03/2024 Neoplasm of uncertain behavior of skin of upper extremity (ICD-10 - D48.5) Plan Of Treatment Medication Medication Name Sig Start Date Stop Date Notes Venlafaxine HCl ER 75 MG 1 cap(s) orally once a day; Duration: 90 days Famotidine 20 MG 1 tab(s) orally once daily; Duration: 90 days Atorvastatin Calcium 40 MG 1 tab(s) oral ly once a day; Duration: 90 days Metoprolol Succinate ER 25 MG take 1 tab let by mouth every day orally once a day; Duration: 90 days Irbesartan 150 MG 1 tab(s) orally once a day; Duration: 90 days Clopidogrel Bisulfate 75 MG 1 tab(s) ora lly once a day; Duration: 90 days Treatment Notes Assessment Notes S/P coronary artery stent placement We n ormally do not fill her plavix. Will fill today but she was supposed to see cardiology last month. She will make appt. Pending Test Test Name Order Date H-TSH 02/03/2024 H-CBC 02/03/2024 H-Lipid Panel 02/03/2024 H-CMP 02/03/2024 H-Glycohemoglobin A1C 02/03/2024 Referrals Referral Date Details 02/03/2024 02/03/2024, . Dermat ology Next Appt Details Follow Up: via phone to repo rt test results, Reason: Provider Name:Jasmina borja, 02/01/2025 09:00:00 AM, [address] [facility] [address], [place], [place], [id number], Progress Notes * LAURE CANSECODOB: [birth year] (64 yo F)Acc No.[id number]:02/03/2024 Progress Notes Patient: LAURE ESTRADA Provider: ANDRE Youngblood :1960 A ge:63 Y S ex:Female Date:02/03/2024 [address] [id number] Pcp:Moni Head Subjective: * Chief Complaints: * 1 . Refills. * HPI: C ardiology: The patient is here today for a check up. Pt states she is doing good and denies any new concerns. Pt states she is needing refills sent to clinic pharmacy. Denies : Chest Pain. D enies : Short of Breath. D enies : Dizziness. D enies : Palpitations. * ROS: D ERMATOLOGY: no R braulio. n o H brandt. G ASTROENTEROLOGY: no N ausea. n o V omiting. n o D iarrhea.? U ROLOGY: no D ifficulty urinating. n o B lood in urine. * Medical History: C AD with stent placement when hositalized 11/02/18. * Surgical History: r t arm 10/21, Heart stent 11/01. * Hospitalization/Major Diagno stic Procedure: H ER chest pain. 11/02/18. * Family History: F ather: alive. M other: alive, diagnosed with Stroke. 1 daughter(s) - healthy. .? * Social History: C URRENT TOBACCO USE S moking Status: Patient does NOT smoke. C affeine: yes, frequency:. Past smoking status: no. Alcohol: Yes, social. * Medications: T aking Aspirin 81 MG Tablet Delayed Release 1 tab(s) orally once a day , Taking Clopidogrel Bisulfate 75 MG Tablet 1 tab(s) orally once a day , Taking Vitamin D3 50 MCG (2000 UT) Tablet as directed orally once a day , Taking Irbesartan 150 MG Tablet 1 tab(s) orally once a day , Notes to Pharmacist: patient needs appt, Taking Metoprolol Succinate ER 25 MG Tablet Extended Release 24 Hour take 1 tablet by mouth every day orally once a day , Taking Venlafaxine HCl ER 75 MG Capsule Extended Release 24 Hour 1 cap(s) orally once a day , Taking Famotidine 20 MG Tablet 1 tab(s) orally once daily , Taking Atorvastatin Calcium 40 MG Tablet 1 tab(s) orally once a day , Medication List reviewed and reconciled with the patient * Allergies: N .K.D.A. Objective: * Vitals: W t:238.2, Temp:97.7, BP:112/70, HR:107, Nurse:DAWSON, Ht: 63, BMI:42.19. * Examination: G eneral Examination: General Appearance: N AD. H EENT: u nremarkable.?Oral cavity: n o lesions, mucosa moist and WNL, no erythema. N jamilah: s upple, no lymphadenopathy. C hest: n ormal shape and expansion. H eart: R SR. L ungs: c lear to auscultation. A bdomen: bowel sounds present, soft and nontender, no organomegaly or masses, no guarding or rigidity. N eurologic Exam: I ntact, gait normal. S kin: n ormal, no rash, right hand with an unusual skin lesion that appears venous in nature, nontender, purple in color. P eripheral pulses: n ormal (2+) bilaterally. E xtremities: n o leg edema. Assessment: * Assessment: 1. E ssential hypertension - I10 (Primary) 2 . D epression with anxiety - F41.8 3 . G astroesophageal reflux disease, esophagitis presence not specified - K21.9 4 . M ixed hyperlipidemia - E78.2 5 . S /P coronary artery stent placement - Z95.5 6 . N eoplasm of uncertain behavior of skin of upper extremity - D48.5 Plan: * Treatment: 2. D epression with anxiety Refill Venlafaxine HCl ER Capsule Extended Release 24 Hour, 75 MG, 1 cap(s), orally, once a day, 90 days, 90, Refills 1. 3. G astroesophageal reflux disease, esophagitis presence not specified Refill Famotidine Tablet, 20 MG, 1 tab(s), orally, once daily, 90 days, 90, Refills 1. 4. M ixed hyperlipidemia Refill Atorvastatin Calcium Tablet, 40 MG, 1 tab(s), orally, once a day, 90 days, 90, Refills 1.? L AB: H-Lipid Panel L AB: H-Glycohemoglobin A1C 5. S /P coronary artery stent placement Refill Clopidogrel Bisulfate Tablet, 75 MG, 1 tab(s), orally, once a day, 90 days, 90 Tablet, Refills 1. L AB: H-CBC Notes: We normally do not fill her plavix. Will fill today but she was supposed to see cardiology last month. She will make appt. 6. N eoplasm of uncertain behavior of skin of upper extremity Referral To:. Dermatology Dermatology Reason: * Follow Up: v ia phone to report test results * Images: Billing Information: * Visit Code: 90626 Office Visit, Est Pt., Level 4. * Procedure Codes: * Electronic signature of ANDRE Martinez on 01/27/2025 at 10:55 AM EDT Sign off status: Pending * Provider: ANDRE Youngblood Date: 0 02/03/2024 Generated for Letha ford/Majo/eTransmitting on: 0 01/27/2025 10:55 AM EDT History and Physical Notes * HPI (History of Present Illness) Category Sub-Category Detail Notes Category Not es Cardiology Short of Breath Chest Pain Palpitations Dizziness Examination Category Sub-Category Detail Notes Category Not es General Examination HEENT: unremarkable Heart: RSR Lungs: clear to auscultatio n Abdomen: bowel sounds present , soft and nontender, no organomegaly or masses, no guarding or rigidity Extremities: no leg edema General Appearance: NAD Skin: normal, no rash, rig ht hand with an unusual skin lesion that appears venous in nature, nontender, purple in color Neurologic Exam: Intact, gait normal Neck: supple, no lymphaden opathy Oral cavity: no lesions, mucosa m oist and WNL, no erythema Peripheral pulses: normal (2+) bilatera lly Chest: normal shape and exp ansion Consultation Request Notes Referral Date Referring Provider Referred Provider Not es 02/03/2024 Jasmina Bergeron Dermatology, .
--- OUTSIDE RECORDS SUMMARY | 2024-09-14 07:30 | XMS_ITS ---
Author Organization [facility] Address [address] [facility] [address] [place] [id number] Care Team Providers Care Power Saw Operator Name Role Phone Moni Head Primary Care Provider Jasmina Bergeron Unavailable [phone] Allergies No Known Allergies Results Component Value Reference Range Notes CBC Venipuncture (in house) Reviewed date:09/22/2024 01:38:32 PM Interpretation:not performed Performing Lab: Notes/Report: not performed P-Comprehensive Metabolic Pa daniel (CMP) Reviewed date:09/16/2024 01:35:00 PM Interpretation:Normal Performing Lab: Notes/Report: Test performed by [facility] [employer] [address] [place] [address] , [address], [place] [address] Alvaro Covarrubias MD, Disciplinary Hearing Officer CLIA: [id number] Sodium 141 135-145 mmol/L Potassium 4.9 3.5-5.3 [...] Interpretation:Normal Performing Lab: Notes/Report: Test performed by [facility] [address] [place] [address] , [place] [address] Alvaro Covarrubias MD, Disciplinary Hearing Officer CLIA: [id number] Cholesterol 168 <200 mg/dL Triglycerides 117 <150 [...] Interpretation:Normal Performing Lab: Notes/Report: Test performed by [facility] [employer] [address] [place] [address] , [address], [place] [address] Alvaro Covarrubias MD, Disciplinary Hearing Officer CLIA: [id number] TSH reflex to FT4 1.67 0.43-5.25 mU/L [...] Provider Diagnosis [facility] [address] [facility] [address] [place], [place] [id number] 09/14/2024 Jasmina Bergeron Essential hypertensi on I10 [...] Name:Jasmina borja, 02/01/2025 09:00:00 AM, [address] [facility] [address] [facility], [address] , [place], [place], [id number], Progress Notes * LAURE CANSECODOB: [birth year] (64 yo F)Acc No.[id number]:09/14/2024 Progress Notes Patient: Charito LAURE MESSER Provider: ANDRE Youngblood :1960 A ge:64 Y S ex:Female Date:09/14/2024 Address:[address], [id number] Pcp:Moni Head Subjective: * Chief Complaints: * [...] 01:2 8:07 PM > CBC not performed JonoShirley 09/16/2024 1:34:46 PM > Pt informed ?LAB: [...] 19:14 AM > Pt notified to call Preeti Vargas 09/22/2024 10:12:32 AM > pt to return [...] * Images: Billing Information: * Visit Code: 59128 Office Visit, Est Pt., Level 4. * Procedure Codes: 3075F SYST BP GE 130 - 139MM HG. 3079F DIAST BP 80-89 MM HG. * Electronic signature of ANDRE Martinez on 01/27/2025 at 10:56 AM EDT Sign off status: Pending * Provider: ANDRE Youngblood Date: 0 09/14/2024 Generated for Letha ford/Majo/Марина on: 0 01/27/2025 10:56 AM EDT History and Physical Notes * [...]
--- OUTSIDE RECORDS SUMMARY | 2024-09-22 07:15 | XMS_ITS ---
Author Organization [facility] Address [facility] 36 [facility] [address] [place] [id number] Care Team Providers Care County Supervisor Name Role Phone Moni Head Primary Care Provider Jasmina Bergeron Unavailable [phone] Results Component Value Reference Range Notes CBC [...] Encounter Location Date Provider Diagnosis [place] [address] [facility] [address] [place] [phone] 09/22/2024 Jasmina Bergeron Essential hypertensi on I10 Assessments Encounter Date Diagnosis (ICD Code) Assessment Notes Treatment Notes Treatment Clinical Notes Section Notes 09/22/2024 Essential hypertension (ICD-10 - I10) Plan Of Treatment Next Appt Details Provider Name:Jasmina borja, 02/01/2025 09:00:00 AM, [address] [facility], [address], [place], [phone], Progress Notes * PALMIRA CANSECO: [birth year] (64 yo F)Acc No.[id number]:09/22/2024 Patient: LAURE ESTRADA Provider: ANDRE Youngblood :1960 A ge:64 Y S ex:Female Date:09/22/2024 Address:[address], [id number] Pcp:Moni Head Subjective: * Chief Complaints: * [...] Procedure Codes: 3 6416 CAPILLARY BLOOD DRAW, 38062 CBC WITH AUTO DIFF * Images: Billing Information: * Visit Code: * Procedure Codes: 67536 CAPILLARY BLOOD DRAW. 55057 CBC WITH AUTO DIFF. * Electronic signature of ANDRE Martinez on 01/27/2025 at 10:55 AM EDT Sign off status: Pending * Provider: ANDRE Youngblood Date: 0 09/22/2024 Generated for Marcusi ng/Fabeckieg/eTransmitting on: 0 01/27/2025 10:55 AM EDT
--- OUTSIDE RECORDS SUMMARY | 2024-11-16 06:00 | XMS_ITS ---
[facility] [address] [facility] [address] [place] [id number] Care Team Providers Care Activity Therapy Teacher Name Role Phone Moni Head Primary Care Provider Jasmina Bergeron Unavailable [phone] Allergies No Known Allergies REASON FOR VISIT [...] Encounter Location Date Provider Diagnosis [facility] [address] [facility] 36 [facility] [address] [place] [phone] 11/16/2024 Jasmina Bergeron Lower extremity pj a [...] They are sending the lab order to [facility]. 11/16/2024 Symptomatic varicose veins of both [...] They are sending the lab order to [facility]. Symptomatic varicose veins o f both lower extremities Will wear compression socks Next Appt Details Follow Up: with cardiology, Reason: Provider Name:Jasminalyn Key y, 02/01/2025 09:00:00 AM, 12[address] [facility] 36 [facility], [address], [place], [phone], Progress Notes * LAURE CANSECODOB: [birth year] (64 yo F)Acc No.[id number]:11/16/2024 Progress Notes Patient: JAY ESTRADAZABETH Provider: ANDRE Youngblood :1960 A ge:64 Y [...] < 90MM HG * Follow Up: w [facility] cardiology * Images: Billing Information: * Visit Code: 28235 Office Visit, Est Pt., Level 3. * [...] Youngblood Date: 0 11/16/2024 Generated for Letha ford/Majo/eTransmitting on: 0 01/27/2025 10:56 AM EDT History [...]
[2025-01-26 15:10] LABS: Influenza A, PCR Not Detected (NotDetected); Influenza B, PCR Not Detected (NotDetected)
[2025-01-26 16:38] LABS: Coronavirus 19, PCR Detected (NotDetected)
--- OUTSIDE RECORDS SUMMARY | 2025-01-27 10:56 | XMS_ITS | Patient Health Record ---
Author Organization [facility] Address [address] [facility] [address] [place] [phone] Care Team Providers Care Pharmacy Order Entry Technician Name Role Phone Moni Head Primary Care Provider AdamaJasmina albert Unavailable [phone] Allergies No Known Allergies Results Component Value Reference Range Notes CBC Venipuncture (in house) Reviewed date:09/22/2024 01:38:32 PM Interpretation:not performed Performing Lab: Notes/Report: not performed P-Comprehensive Metabolic Pa daniel (CMP) Reviewed date:09/16/2024 01:35:00 PM Interpretation:Normal Performing Lab: Notes/Report: Test performed by [email or web address] [address] [place] [address] , [address], [place] [address] Alvaro Covarrubias MD, Call Center Team Leader CLIA: [id number] Sodium 141 135-145 mmol/L Potassium 4.9 3.5-5.3 [...] Interpretation:Normal Performing Lab: Notes/Report: Test performed by [facility] [address] [place] [address] , [address], [place] [address] Alvaro Covarrubias MD, Call Center Team Leader CLIA: [id number] Cholesterol 168 <200 mg/dL Triglycerides 117 <150 [...] Interpretation:Normal Performing Lab: Notes/Report: Test performed by [facility] [address] [place] [address] Center , [address], [place] [address] Alvaro Covarrubias MD, Call Center Team Leader CLIA: [id number] TSH reflex to FT4 1.67 0.43-5.25 mU/L CBC Fingerstick (in house) Reviewed date:09/22/2024 03:24:50 [...] AGRATIO 1.6 1.1-1.8 ALP 90 38-126 U/L Reason For Referral Diagnosis 1 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 Referred Provider Specialty Dermatology General Notes Jasmina Bergeron 02/02 11:39:58 PM > Pt needs appt at [facility] and will need an annual skin exam as well., Roseanna Cabrera 02/04/2024 10:03:56 AM > faxed referral to [facility] Referral Priority Routine Medications Medication SIG (Take, Route, Frequency, Duration) Notes Start Date End Date Status Famotidine 20 MG 1 tab(s) orally once daily; Duration: 90 days Active Atorvastatin Calcium 40 MG 1 tab(s) orally once a day; Duration: 90 days Active Venlafaxine HCl ER 75 MG 1 cap(s) orally once a day; Duration: 90 days Active Furosemide 20 MG 1 tablet Orally Once a day; Duration: 30 days 12/30/2024 Active Irbesartan 150 MG 1 tab(s) orally once a day; Duration: 30 days patient needs appt Active Clopidogrel Bisulfate 75 MG 1 tab(s) [...] Status W/U Status Risk Notes Problem Hypertension (48155673) HTN (hypertension) (401.9) Active confirmed Problem Essential hypertension (19300561) Essential hypertension (I10) Active confirmed Problem Anxiety (85967194) Anxiety (F41.9) Active confi rmed Problem Mixed anxiety and depressive disorder (596863114) Depression with anxiety (F41.8) Active confirmed Problem Mixed hyperlipidemia (455910700) Mixed hyperlipidemia (E78.2) Active confirmed Problem Acquired hammer toe of right foot (8522779014180993) Other hammer toe(s) (acquired), right foot (M20.41) Active confirmed Problem Acquired hammer toe of left foot (4240814699025411) Other hammer toe(s) (acquired), left foot (M20.42) Active confirmed Problem Gastroesophageal reflux disease (513947823) Gastroesophageal reflux disease, esophagitis presence not specified (K21.9) Active confirmed Problem Neuropathy (372288234) Neuropathy (G62.9) Active confirmed Problem Insomnia disorder related to another mental disorder (95054960) Psychophysiological insomnia (F51.04) Active confirmed Problem History of placement of stent for coronary artery disease (situation) (145712102) S/P coronary artery stent placement (Z95.5) Active confirmed Vital Signs Heart Rate 83 /min 11/16/2024 Blood pressure diastolic 82 mm Hg 11/16/2024 Height 63 in 11/16/2024 Blood pressure systolic 136 mm Hg 11/16/2024 Weight 241.4 lbs 11/16/2024 BMI 42.76 kg/m2 11/16/2024 Encounters Encounter Location Date Provider [facility] [address] [id number] 02/03/2024 Jasmina Crowdy Essential hypertensi on I10 ; Depression with anxiety F41.8 ; Gastroesophageal reflux disease, esophagitis presence not specified K21.9 ; Mixed hyperlipidemia E78.2 ; S/P coronary artery stent placement Z95.5 and Neoplasm of uncertain behavior of skin of upper extremity D48.5 [facility] [address] [id number] 09/14/2024 Jasmina Crowdy Essential hypertensi on I10 ; Depression with anxiety F41.8 ; Gastroesophageal reflux disease, esophagitis presence not specified K21.9 ; Mixed hyperlipidemia E78.2 and S/P coronary artery stent placement Z95.5 [facility] [address] [place] [id number] 09/22/2024 Jasmina Rubio Essential hypertensi on I10 [facility] [address] [place] [id number] 11/16/2024 Jasmina Rubio Lower extremity pj a R60.0 and Symptomatic varicose veins of both lower extremities I83.893 [facility] [address] [place] [id number] 08/19/2024 Jasmina Bergeron Elevated bilirubin R 17 [facility] [address] [place] [id number] 11/29/2024 [facility] [address] [place] [id number] 12/26/2024 Jasmina Rubio Lower extremity pj a R60.0 Assessments Encounter Date Diagnosis (ICD Code) Assessment [...] They are sending the lab order to [facility]. 11/16/2024 Symptomatic varicose veins of both lower extremities (ICD-10 - I83.893) Will wear compression socks 12/26/2024 Lower extremity edema (ICD-10 - R60.0) 02/03/2024 Gastroesophageal reflux disease, esophagitis presence not [...] 02/03/2024 H-Glycohemoglobin A1C 02/03/2024 H-Bilirubin, Total 08/19/2024 Next Appt Details Provider Name:Jasminalyn borja, 02/01/2025 09:00:00 AM, [address], [address], [place], [place], [id number], Insurance Providers Payer Name Payer Address Payer Phone Subscriber Number Group Number Insured Name Patient Relationship to Insured Coverage Start Date Coverage End Date MEDICARE PART B [address] [address] [place] [address] [id number] [employer] Self - patient is the insured [employer] MEDICARE SUPPLEMENT [address] [address] [place], [place] [id number] [employer] Self - patient is the insured Medical (General) History Medical History History ICD Code CAD with stent placement when hositalize d 11/02/18 Surgical History Surgery Date(Month/Year) rt arm 10/21 Heart stent 11/01 Hospitalization History Reason Date(Month/Year) [facility] ER chest pain. 11/02/18
== END 2025-01-26 23:59 ==
LOC: LAB.DROPOF 01-27 10:54
PROVIDERS: PCP Student in an Organized Health Care Education/Training Program; Visit Provider Student in an Organized Health Care Education/Training Program
DX: J06.9 Acute upper respiratory infection, unspecified (principal)
CPT/HCPCS: 87636

== ENCOUNTER 2025-02-09 08:57 | Outpatient (CLI) | payer MEDICARE, SELFPAY ==
--- OUTSIDE RECORDS SUMMARY | 2024-09-14 07:30 | XMS_ITS ---
Author Organization [facility] Address [address] [facility] [address] [place] [id number] Care Team Providers Care Legal Researcher Name Role Phone Moni Head Primary Care Provider [phone] Jasmina Bergeron Unavailable [phone] Allergies No Known Allergies Results Component Value Reference Range Notes CBC Venipuncture (in house) Reviewed date:09/22/2024 01:38:32 PM Interpretation:not performed Performing Lab: Notes/Report: not performed P-Comprehensive Metabolic Pa daniel (CMP) Reviewed date:09/16/2024 01:35:00 PM Interpretation:Normal Performing Lab: Notes/Report: Test performed by [facility] [address] [place] [address] , [address], [place] [address] Alvaro Covarrubias MD, Landing Worker CLIA: [id number] Sodium 141 135-145 mmol/L Potassium 4.9 3.5-5.3 mmol/L Chloride 105 97-108 mmol/L CO2 25 22-32 mmol/L Glucose 100 65-99 mg/dL BUN 16 8-23 mg/dL Creatinine 0.78 0.50-1.00 mg/dL Calcium 9.5 8.6-10.4 mg/dL eGFR by Creatinine 84 >59 mL/min/1.73m2 Protein 6.8 6.0-8.3 g/dL Albumin 4.2 3.5-5.3 g/dL Alkaline Phosphatase 123 35-121 IU/L ALT (SGPT) 17 <5-47 IU/L AST (SGOT) 19 <5-40 IU/L Bilirubin, Total 1.2 <0.2-1.2 mg/dL A/G Ratio 1.6 1.1-2.5 P-Lipid Panel Reviewed date:09/16/2024 01:35:00 PM Interpretation:Normal Performing Lab: Notes/Report: Test performed by [facility] [address] [place] [address] , [place] [address] Alvaro Cvoarrubias MD, Landing Worker CLIA: [id number] Cholesterol 168 <200 mg/dL Triglycerides 117 <150 mg/dL HDL Cholesterol 48 >39 mg/dL Cholesterol / HDL Ratio 3.50 0.00-4.44 Ratio Non-HDL Cholesterol 120 <130 mg/dL LDL Cholesterol (Calculation) 97 <130 mg/dL LDL Cholesterol Levels* Less than 100 mg/dL Optimal 100 to 129 mg/dL Near Optimal/ Above Optimal 130 to 159 mg/dL Borderline High 160 to 189 mg/dL High 190 mg/dL and above Very High * Categories as recommended by the 2004 ATPIII guidelines LDL/HDL Ratio 2.0 <3.3 Ratio LDL Cholesterol Patient History Test Date: 07/30/2023 LDL Results: 74 Units: mg/dL % Change: - Test Date: 09/14/2024 LDL Results: 97 Units: mg/dL % Change: +31% P-TSH reflex to FT4 Reviewed date:09/16/2024 01:35:00 PM Interpretation:Normal Performing Lab: Notes/Report: Test performed by [facility] [address] [place] [address] , [address], [place] [address] Alvaro Covarrubias MD, Landing Worker CLIA: [id number] TSH reflex to FT4 1.67 0.43-5.25 mU/L REASON FOR VISIT med check Medications Medication SIG (Take, Route, Frequency, Duration) Notes Start Date End Date Status Aspirin 81 MG 1 tab(s) orally once a day Active Vitamin D3 50 MCG (1999) as directed orally once a day; Duration: 30 day(s) 10/25/2019 Active Venlafaxine HCl ER 75 MG 1 cap(s) orally once a day; Duration: 90 days Active Famotidine 20 MG 1 tab(s) orally once daily; Duration: 90 days Active Irbesartan 150 MG 1 tab(s) orally once a day; Duration: 30 days patient needs appt Active Metoprolol Succinate ER 25 MG take 1 tablet by mouth every day orally once a day; Duration: 90 days Active Irbesartan 150 MG 1 tab(s) orally once a day Active Atorvastatin Calcium 40 MG 1 tab(s) orally once a day; Duration: 90 days Active Clopidogrel Bisulfate 75 MG 1 tab(s) orally once a day; Duration: 90 days Active Vital Signs Blood pressure systolic 130 mm Hg 09/15/19 25 Blood pressure diastolic 80 mm Hg 025 Heart Rate 73 /min 09/14/2024 Height 63 in 09/14/2024 Weight 241.8 lbs 09/14/2024 BMI 42.83 kg/m2 09/14/2024 Encounters Encounter Location Date Provider Diagnosis [facility] [address] [facility] [address] [place], [place] [id number] 09/14/2024 Jasmina Bergeron Essential hypertensi on I10 ; Depression with anxiety F41.8 ; Gastroesophageal reflux disease, esophagitis presence not specified K21.9 ; Mixed hyperlipidemia E78.2 and S/P coronary artery stent placement Z95.5 Assessments Encounter Date Diagnosis (ICD Code) Assessment Notes Treatment Notes Treatment Clinical Notes Section Notes 09/14/2024 Essential hypertension (ICD-10 - I10) 09/14/2024 Depression with anxiety (ICD-10 - F41.8) 09/14/2024 Gastroesophageal reflux disease, esophagitis presence not specified (ICD-10 - K21.9) 09/14/2024 Mixed hyperlipidemia (ICD-10 - E78.2) 09/14/2024 S/P coronary artery stent placement (ICD-10 - Z95.5) We normally do not fill her plavix. Will fill today but she was supposed to see cardiology last month. She will make appt. Plan Of Treatment Medication Medication Name Sig Start Date Stop Date Notes Venlafaxine HCl ER 75 MG 1 cap(s) orally once a day; Duration: 90 days Famotidine 20 MG 1 tab(s) orally once daily; Duration: 90 days Metoprolol Succinate ER 25 MG take 1 tab let by mouth every day orally once a day; Duration: 90 days Irbesartan 150 MG 1 tab(s) orally once a day Atorvastatin Calcium 40 MG 1 tab(s) oral ly once a day; Duration: 90 days Clopidogrel Bisulfate 75 MG 1 tab(s) ora lly once a day; Duration: 90 days Treatment Notes Assessment Notes S/P coronary artery stent placement We n ormally do not fill her plavix. Will fill today but she was supposed to see cardiology last month. She will make appt. Next Appt Details Follow Up: via phone to repo rt test results, Reason: Progress Notes * LAURE CANSECODOB: [birth year] (64 yo F)Acc No.[id number]:09/14/2024 Progress Notes Patient: LAURE ESTRADA Provider: ANDRE Youngblood :1960 A ge:64 Y S ex:Female Date:09/14/2024 Address[address], [id number] Pcp:Moni Head Subjective: * Chief Complaints: * 1 . Med check. * HPI: C ardiology: The patient is here for a check up on Hypertension and Hyperlipidemia. Pt states she is doing good and denies any new concerns. Pt is fasting. Pt states she is needing refills sent [...] Allergies: N .K.D.A. Objective: * Vitals: W t: 241.8, Temp: 98.0, BP: 130/80, HR: 73, Nurse: DAWSON, Ht: 63, BMI:42.83. * Examination: G eneral Examination: General Appearance: N AD. H EENT: u nremarkable.?Oral cavity: n o lesions, mucosa moist and WNL, no erythema. N jamilah: s upple, no lymphadenopathy. C hest: n ormal shape and expansion. H eart: R SR. L ungs: c lear to auscultation. A bdomen: bowel sounds present, soft and nontender. N eurologic Exam: I ntact, gait normal. S kin: n ormal, no rash. P eripheral pulses: n ormal (2+) bilaterally. E xtremities: n o leg edema. Assessment: * Assessment: 1. E ssential hypertension - I10 (Primary) 2 . D epression with anxiety - F41.8 3 . G astroesophageal reflux disease, esophagitis presence not specified - K21.9 4 . M ixed hyperlipidemia - E78.2 5 . S /P coronary artery stent placement - Z95.5 Plan: * Treatment: Value Reference Range A /G Ratio 1.6 1.1-2.5 - * A lbumin 4.2 3.5-5.3 - g/dL * A lkaline Phosphatase 123 H 35-121 - IU/L * A LT (SGPT) 17 <5-47 - IU/L * A ST (SGOT) 19 <5-40 - IU/L * B ilirubin, Total 1.2 <0.2-1.2 - mg/dL * B UN 16 8-23 - mg/dL * C alcium 9.5 8.6-10.4 - mg/dL * C hloride 105 97-108 - mmol/L * C O2 25 22-32 - mmol/L * C reatinine 0.78 0.50-1.00 - mg/dL * G lucose 100 H 65-99 - mg/dL * P otassium 4.9 3.5-5.3 - mmol/L * S odium 141 135-145 - mmol/L * P rotein 6.8 6.0-8.3 - g/dL * e GFR by Creatinine 84 >59 - mL/min/1.73m2 * Preeti Kraus 09/16/2024 01:2 8:07 PM > CBC not performed Shirley De La Cruz 09/16/2024 1:34:46 PM > Pt informed ?LAB: P-TSH reflex to FT4 (Collection Date & Time - 09/14/2024 11:17 AM)? Normal* Value Reference Range T SH reflex to FT4 1.67 0.43-5.25 - mU/L * Preeti Kraus 09/16/2024 01:2 8:07 PM > CBC not performed Shirley De La Cruz 09/16/2024 1:34:46 PM > Pt informed ?LAB: CBC Venipuncture (in house) (Collection Date & Time - 09/22/2024)?not performed* Magui Kelley 09/22/2024 09: 19:14 AM > Pt notified to call backPreeti Kraus 09/22/2024 10:12:32 AM > pt to return for lab 2.?Depression with anxiety? Refill Venlafaxine HCl ER Capsule Extended Release 24 Hour, 75 MG, 1 cap(s), orally, once a day, 90days, 90, Refills 1.??3.?Gastroesophageal reflux disease, esophagitis presence not specified? Refill Famotidine Tablet, 20 MG, 1 tab(s), orally, once daily, 90 days, 90, Refills 1.??4.?Mixed hyperlipidemia? Refill Atorvastatin Calcium Tablet, 40 MG, 1 tab(s), orally, once a day, 90 days, 90, Refills 1. ?LAB: P-Lipid Panel (Collection Date & Time - 09/14/2024 11:17 AM)?Normal* Value Reference Range C holesterol / HDL Ratio 3.50 0.00-4.44 - Ratio * C holesterol 168 <200 - mg/dL * H DL Cholesterol 48 >39 - mg/dL * L DL Cholesterol (Calculation) 97 <130 - mg/d L * L DL/HDL Ratio 2.0 <3.3 - Ratio * N on-HDL Cholesterol 120 <130 - mg/dL * T riglycerides 117 <150 - mg/dL * Preeti Kraus 09/16/2024 01:2 8:07 PM > CBC not performed Shirley De La Cruz 09/16/2024 1:34:46 PM > Pt informed 5.?S/P coronary artery stent placement? Refill Clopidogrel Bisulfate Tablet, 75 MG, 1 tab(s), orally, once a day, 90 days, 90 Tablet, Refills 1.?? Notes: We normally do not fill her plavix. Will fill today but she was supposed to see cardiology last month. She will make appt.?? * Procedure Codes: 3 075F SYST BP GE 130 - 139MM HG, 3079F DIAST BP 80-89 MM HG * Follow Up: v ia phone to report test results * Images: Billing Information: * Visit Code: 98998 Office Visit, Est Pt., Level 4. * Procedure Codes: 3075F SYST BP GE 130 - 139MM HG. 3079F DIAST BP 80-89 MM HG. * Electronic signature of ANDRE Martinez on 02/09/2025 at 09:01 AM EDT Sign off status: Pending * Provider: ANDRE Youngblood Date: 0 09/14/2024 Generated for Letha ford/Majo/eTransmitting on: 0 02/09/2025 09:01 AM EDT History and Physical Notes * HPI (History of Present Illness) Category Sub-Category Detail Notes Category Not es Cardiology Short of Breath Chest Pain Palpitations Dizziness Examination Category Sub-Category Detail Notes Category Not es General Examination HEENT: unremarkable Heart: RSR Lungs: clear to auscultatio n Abdomen: bowel sounds present , soft and nontender Extremities: no leg edema General Appearance: NAD Skin: normal, no rash Neurologic Exam: Intact, gait normal Neck: supple, no lymphaden opathy Oral cavity: no lesions, mucosa m oist and WNL, no erythema Peripheral pulses: normal (2+) bilatera lly Chest: normal shape and exp ansion
--- OUTSIDE RECORDS SUMMARY | 2024-09-22 07:15 | XMS_ITS ---
Author Organization [facility] Address [address] [facility] [address] [place] [phone] Care Team Providers Care Hard Hat Diver Name Role Phone Moni Head Primary Care Provider [phone] Jasmina Bergeron [phone] Results Component Value Reference Range Notes CBC [...] Encounter Location Date Provider Diagnosis [facility] [address] [facility] [address] [place] [id number] 09/22/2024 Jasmina Bergeron Essential hypertensi on I10 Assessments Encounter Date Diagnosis (ICD Code) Assessment Notes Treatment Notes Treatment Clinical Notes Section Notes 09/22/2024 Essential hypertension (ICD-10 - I10) Plan Of Treatment No Information Progress Notes * LAURE CANSECODOB: [birth year] (64 yo F)Acc No.[id number]:09/22/2024 Patient: LAURE ESTRADA Provider: ANDRE Youngblood :1960 A ge:64 Y S ex:Female Date:09/22/2024 Address:[address], [id number] Pcp:Moni Head Subjective: * Chief Complaints: * [...] Procedure Codes: 3 6416 CAPILLARY BLOOD DRAW, 75287 CBC WITH AUTO DIFF * Images: Billing Information: * Visit Code: * Procedure Codes: 77687 CAPILLARY BLOOD DRAW. 19227 CBC WITH AUTO DIFF. * Electronic signature of ANDRE Martinez on 02/09/2025 at 09:00 AM EDT Sign off status: Pending * Provider: ANDRE Youngblood Date: 0 09/22/2024 Generated for Marcusi ng/Majo/eTransmitting on: 0 02/09/2025 09:00 AM EDT
--- OUTSIDE RECORDS SUMMARY | 2024-11-16 06:00 | XMS_ITS ---
Author Organization [facility] [address] [facility] [address] [place] [id number] Care Team Providers Care Material Control Clerk Name Role Phone Moni Head Primary Care Provider Jasmina Bergeron Unavailable [phone] Allergies No Known Allergies REASON FOR VISIT ankles swelling Medications Medication SIG (Take, Route, Frequency, Duration) Notes Start Date End Date Status Famotidine 20 MG 1 tab(s) orally once daily; Duration: 90 days Active Atorvastatin Calcium 40 MG 1 tab(s) oral ly once a day; Duration: 90 days Active Clopidogrel Bisulfate 75 MG 1 tab(s) ora lly once a day; Duration: 90 days Active Metoprolol Succinate ER 25 MG take 1 tablet by mouth every day orally once a day; Duration: 90 days Active hydroCHLOROthiazide 25 MG 1 tablet in morning Orally Once a day; Duration: 30 days 11/17/2024 Active Irbesartan 150 MG 1 tab(s) orally once a day; Duration: 30 days patient needs appt Active Venlafaxine HCl ER 75 MG 1 cap(s) orally once a day; Duration: 90 days Active Aspirin 81 MG 1 tab(s) orally once a day Active Vitamin D3 50 MCG (1999) as directed orally once a day; Duration: 30 day(s) 10/25/2019 Active Vital Signs Blood pressure systolic 136 mm Hg 11/17/19 25 Blood pressure diastolic 82 mm Hg 025 Heart Rate 83 /min 11/16/2024 Height 63 in 11/16/2024 Weight 241.4 lbs 11/16/2024 BMI 42.76 kg/m2 11/16/2024 Encounters Encounter Location Date Provider Diagnosis [facility] [address] [place] [id number] 11/16/2024 Jasmina Bergeron Lower extremity pj a R60.0 and Symptomatic varicose veins of both lower extremities I83.893 Assessments Encounter Date Diagnosis (ICD Code) Assessment Notes Treatment Notes Treatment Clinical Notes Section Notes 11/16/2024 Lower extremity edema (ICD-10 - R60.0) Spoke with cardiology about her recent stress test and echo. They would like for her to start on HCTZ and have a BMP in 1 week and f/u in their office in 2-3 weeks. They are sending the lab order to [facility]. 11/16/2024 Symptomatic varicose veins of both lower extremities (ICD-10 - I83.893) Will wear compression socks Plan Of Treatment Medication Medication Name Sig Start Date Stop Date Notes hydroCHLOROthiazide 25 MG 1 tablet in th e morning Orally Once a day; Duration: 30 days 11/17/2024 Treatment Notes Assessment Notes Lower extremity edema Spoke with cardiol pablito about her recent stress test and echo. They would like for her to start on HCTZ and have a BMP in 1 week and f/u in their office in 2-3 weeks. They are sending the lab order to [facility]. Symptomatic varicose veins o f both lower extremities Will wear compression socks Next Appt Details Follow Up: with cardiology, Reason: Progress Notes * LAURE CANSECODOB: [birth year] (64 yo F)Acc No.[id number]:11/16/2024 Progress Notes Patient: LAURE ESTRADA Provider: ANDRE Youngblood :1960 A ge:64 Y S ex:Female Date:11/16/2024 Address:[address] [id number] Pcp:Moni Head Subjective: * Chief Complaints: * 1 . Ankles swelling. * HPI: A nkle/Foot: 64 year old female presents with c/o Swelling P t states that she has had swelling in her left a nkle for the last mouth. Pt states ankle has hurt in the past. . * ROS: E NT: no C ough. n o S ore throat. G ASTROENTEROLOGY: no N ausea. n o [...] Notes to Pharmacist: patient needs appt, Taking Venlafaxine HCl ER 75 MG Capsule Extended Release 24 Hour 1 cap(s) orally once a day , Taking Famotidine 20 MG Tablet 1 tab(s) orally once daily , Taking Atorvastatin Calcium 40 MG Tablet 1 tab(s) orally once a day , Taking Clopidogrel Bisulfate 75 MG Tablet 1 tab(s) orally once a day , Taking Metoprolol Succinate ER 25 MG Tablet Extended Release 24 Hour take 1 tablet by mouth every day orally once a day , Medication List reviewed and reconciled with the patient * Allergies: N .K.D.A. Objective: * Vitals: W t: 241.4, Temp: 98.6, BP: 136/82, HR: 83, Nurse: pe, Ht: 63, BMI:42.76. * Examination: G eneral Examination: General Appearance: N AD. C hest: n ormal shape and expansion. H eart: R SR. L ungs: c lear to auscultation. E xtremities: v aricose veins in bilateral LE's, left ankle is swollen but without erythema, not tender. ? Assessment: * Assessment: 1. L ower extremity edema - R60.0 (Primary) 2 . S ymptomatic varicose veins of both lower extremities - I83.893 Plan: * Treatment: 2. S ymptomatic varicose veins of both lower extremities Notes: Will wear compression socks * Procedure Codes: G 2211 Complex e/m visit add on, 1036F TOBACCO NON-USER, G8783 BP SCR PRFRM RCMDD DEFIND SCR INTVL, G8752 MOST RECENT SYSTOLIC BP < 140MM HG, G8754 MOST RECENT DIASTOLIC BP < 90MM HG * Follow Up: w [facility] cardiology * Images: Billing Information: * Visit Code: 58105 Office Visit, Est Pt., Level 3. * Procedure Codes: G2211 Complex e/m [place]. 1036F TOBACCO NON-USER. G8783 BP SCR PRFRM RCMDD DEFIND SCR INTVL. G8752 MOST RECENT SYSTOLIC BP < 140MM HG. G8754 MOST RECENT DIASTOLIC BP < 90MM HG. * Electronic signature of ANDRE Martinez on 02/09/2025 at 09:00 AM EDT Sign off status: Pending * Provider: ANDRE Youngblood Date: 11/16/2024 Generated for Letha ford/Majo/Suyapaitting on: 02/09/2025 09:00 AM EDT History and Physical Notes * HPI (History of Present Illness) Category Sub-Category Detail Notes Category Not es Ankle/Foot Swelling Pt states that s he has had swelling in her left ankle for the last mouth. Pt states ankle has hurt in the past. Examination Category Sub-Category Detail Notes Category Not es General Examination Heart: RSR Lungs: clear to auscultatio n Extremities: varicose veins in bi lateral LE's, left ankle is swollen but without erythema, not tender General Appearance: NAD Chest: normal shape and exp ansion
--- OUTSIDE RECORDS SUMMARY | 2025-02-01 05:00 | XMS_ITS ---
[facility] [address] [facility] [address] [place] [id number] Care Team Providers Care Propeller Layout Worker Name Role Phone Moni Head Primary Care Provider [phone] Jasmina Bergeron Unavailable [phone] Allergies No Known Allergies REASON FOR VISIT 1 month Medications Medication SIG (Take, Route, Frequency, Duration) Notes Start Date End Date Status Irbesartan 150 MG 1 tab(s) orally once a day; Duration: 30 days patient needs appt Active Metoprolol Succinate ER 25 MG take 1 tablet by mouth every day orally once a day; Duration: 90 days Active Clopidogrel Bisulfate 75 MG 1 tab(s) orally once a day; Duration: 90 days Active Furosemide 40 MG 1 tablet Orally Once a day; Duration: 30 days 12/30/2024 Active Benzonatate 200 MG 1 capsule as needed Orally Three times a day 02/01/2025 Active Atorvastatin Calcium 40 MG 1 tab(s) orally once a day; Duration: 90 days Active Famotidine 20 MG 1 tab(s) orally once daily; Duration: 90 days Active guaiFENesin ER 600 MG 1 tablet as needed Orally every 12 hrs Active Problems Problem Type SNOMED Code ICD Code Onset Dates Problem Status W/U Status Risk Notes Problem Body mass index 40+ - morbidly obese (008542936) BMI 40.0-44.9, adult (Z68.41) Active confirmed Vital Signs Blood pressure systolic 130 mm Hg 02/02/20 25 Blood pressure diastolic 80 mm Hg 025 Heart Rate 87 /min 02/01/2025 Height 63 in 02/01/2025 Weight 237.6 lbs 02/01/2025 BMI 42.08 kg/m2 02/01/2025 Encounters Encounter Location Date Provider Diagnosis [facility] [address] [facility] [address] [place] [id number] 02/01/2025 Jasmina Bergeron Acute cough R05.1 ; Lower extremity edema R60.0 ; Symptomatic varicose veins of both lower extremities I83.893 ; Essential hypertension I10 ; Gastroesophageal reflux disease, esophagitis presence not specified K21.9 ; S/P coronary artery stent placement Z95.5 ; Mixed hyperlipidemia E78.2 ; Psychophysiological insomnia F51.04 ; Depression with anxiety F41.8 and BMI 40.0-44.9, adult Z68.41 Assessments Encounter Date Diagnosis (ICD Code) Assessment Notes Treatment Notes Treatment Clinical Notes Section Notes 02/01/2025 Acute cough (ICD-10 - R05.1) 02/01/2025 Lower extremity pj a (ICD-10 - R60.0) Will follow with cardiology. 02/01/2025 Symptomatic varicose veins of both lower extremities (ICD-10 - I83.893) Will wear compression socks 02/01/2025 Essential hypertensi on (ICD-10 - I10) 02/01/2025 Gastroesophageal ref lux disease, esophagitis presence not specified (ICD-10 - K21.9) 02/01/2025 S/P coronary artery stent placement (ICD-10 - Z95.5) 02/01/2025 Mixed hyperlipidemia (ICD-10 - E78.2) 02/01/2025 Psychophysiological insomnia (ICD-10 - F51.04) 02/01/2025 Depression with anxi ety (ICD-10 - F41.8) 02/01/2025 BMI 40.0-44.9, adult (ICD-10 - Z68.41) Plan Of Treatment Medication Medication Name Sig Start Date Stop Date Notes Benzonatate 200 MG 1 capsule as needed Orally Three times a day 02/01/2025 Treatment Notes Assessment Notes Lower extremity edema Will follow with c ardiology. Symptomatic varicose veins of both lower extremities Will wear compression socks Pending Test Test Name Order Date H-TSH 02/01/2025 H-CBC 02/01/2025 H-BNP 02/01/2025 H-Lipid Panel 02/01/2025 H-CMP 02/01/2025 Next Appt Details Follow Up: via phone to repo rt test results, Reason: Progress Notes * LAURE CANSECODOB: [birth year] (64 yo F)Acc No.[id number]:02/01/2025 Progress Notes Patient: LAURE ESTRADA Provider: ANDRE Youngblood :1960 A ge:64 Y S ex:Female Date:02/01/2025 Address:[address], [id number] Pcp:Moni Head Subjective: * Chief Complaints: * 1 . 1 month. * HPI: A nkle/Foot: Swelling P t complains of ongoing b ilateral leg swelling. Pt states nothing is helping them. She has seen cardiology and they started her on Lasix. They are following up with her in about a week.. E NT/respiratory: Pt states she went to [facility] last week and she tested positive for Covid. Pt states that symptoms are starting to improve. c/o cough s mall amount of white sputum. c/o Short of Breath. c/o headache. c/o chest congestion. Denies : sore throat. D enies : nasal congestion. D enies : Fever. D enies : ear pain. D enies : Chest Pain. D enies : dizziness. D enies : body aches. * ROS: R ESPIRATORY: no S hortness of breath. n o C hest pain. ? C ARDIOLOGY: no C hest pain. n o P alpitations. n o S hortness of breath. G ASTROENTEROLOGY: no N ausea. n o H eartburn. n o A bdominal pain. * Medical History: C AD with stent [...] Alcohol: Yes, social. * Medications: T aking guaiFENesin ER 600 MG Tablet Extended Release 12 Hour 1 tablet as needed Orally every 12 hrs , Taking Famotidine 20 MG Tablet 1 tab(s) orally once daily , Taking Atorvastatin Calcium 40 MG Tablet 1 tab(s) orally once a day , Taking Clopidogrel Bisulfate 75 MG Tablet 1 tab(s) orally once a day , Taking Metoprolol Succinate ER 25 MG Tablet Extended Release 24 Hour take 1 tablet by mouth every day orally once a day , Taking Furosemide 40 MG Tablet 1 tablet Orally Once a day , Taking Irbesartan 150 MG Tablet 1 tab(s) orally once a day , Notes to Pharmacist: patient needs appt, Discontinued Aspirin 81 MG Tablet Delayed Release 1 tab(s) orally once a day , Discontinued Vitamin D3 50 MCG (2000 UT) Tablet as directed orally once a day , Discontinued Venlafaxine HCl ER 75 MG Capsule Extended Release 24 Hour 1 cap(s) orally once a day , Medication List reviewed and reconciled with the patient * Allergies: N .K.D.A. Objective: * Vitals: W t: 237.6, Temp: 98.0, BP: 130/80, HR: 87, Nurse: bright, Ht: 63, BMI:42.08. * Examination: G eneral Examination: General Appearance: N AD. H EENT: s clera and conjunctiva clear, PERRLA, TM's normal, translucent, nose congested. O ral cavity: n o lesions, mucosa moist and WNL, no erythema. N jamilah: s upple, no lymphadenopathy. C hest: n ormal shape and expansion. H eart: R SR. L ungs: c lear to auscultation. A bdomen:?bowel sounds present, soft and nontender, no organomegaly or masses. N eurologic Exam: I ntact, gait normal. S kin: n ormal, no rash. P eripheral pulses: n ormal (2+) bilaterally. E xtremities: 1 + leg edema bilaterally. Assessment: * Assessment: 1. A cute cough - R05.1 (Primary) 2 . L ower extremity edema - R60.0 ? 3 . S ymptomatic varicose veins of both lower extremities - I83.893 4 . E ssential hypertension - I10 5 . G astroesophageal reflux disease, esophagitis presence not specified - K21.9 6 . S /P coronary artery stent placement - Z95.5 7 . M ixed hyperlipidemia - E78.2 8 . P sychophysiological insomnia - F51.04 9 . D epression with anxiety - F41.8 1 0.?BMI 40.0-44.9, adult - Z68.41 Plan: * Treatment: 2. L ower extremity edema L AB: H-TSH L AB: H-BNP Notes: Will follow with cardiology. 3. S ymptomatic varicose veins of both lower extremities Notes: Will wear compression socks 4. E ssential hypertension L AB: H-CBC L AB: H-CMP 5. M ixed hyperlipidemia L AB: H-Lipid Panel * Procedure Codes: G 2211 Complex e/m visit add on, 1036F TOBACCO NON-USER, G8950 PREHTN/HTN BP DOC INDCD F/U DOC, 3075F SYST BP GE 130 - 139MM HG, 3079F DIAST BP 80-89 MM HG * Follow Up: v ia phone to report test results * Images: Billing Information: * Visit Code: 66321 Office Visit, Est Pt., Level 4. * Procedure Codes: G2211 Complex e/m visit add on. 1036F TOBACCO NON-USER. G8950 PREHTN/HTN BP DOC INDCD F/U DOC. 3075F SYST BP GE 130 - 139MM HG. 3079F DIAST BP 80-89 MM HG. * Electronic signature of ANDRE Martinez on 02/09/2025 at 09:00 AM EDT Sign off status: Pending * Provider: ANDRE Youngblood Date: 0 02/01/2025 Generated for Letha ford/Majo/eTjustensmitting on: 0 02/09/2025 09:00 AM EDT History and Physical Notes * HPI (History of Present Illness) Category Sub-Category Detail Notes Category Not es ENT/respiratory sore throat ear pain Short of Breath Chest Pain cough small amount of whit e sputum Fever headache chest congestion nasal congestion dizziness body aches Ankle/Foot Swelling Pt complains of ongoing bilateral leg swelling. Pt states nothing is helping them. She has seen cardiology and they started her on Lasix. They are following up with her in about a week. Examination Category Sub-Category Detail Notes Category Not es General Examination HEENT: sclera and c onjunctiva clear, PERRLA, TM's normal, translucent, nose congested Heart: RSR Lungs: clear to auscultatio n Abdomen: bowel sounds present , soft and nontender, no organomegaly or masses Extremities: 1+ leg edema bilater ally General Appearance: NAD Skin: normal, no rash Neurologic Exam: Intact, gait normal Neck: supple, no lymphaden opathy Oral cavity: no lesions, mucosa m oist and WNL, no erythema Peripheral pulses: normal (2+) bilatera lly Chest: normal shape and exp ansion
--- OUTSIDE RECORDS SUMMARY | 2025-02-09 09:01 | XMS_ITS | Patient Health Record ---
Author Organization [facility] Address [address] [place] [place] [id number] Care Team Providers Care Pharmacist In Charge Name Role Phone Moni Head Primary Care Provider Jasmina Bergeron Unavailable [phone] Allergies No Known Allergies Results Component Value [...] Interpretation:Normal Performing Lab: Notes/Report: Test performed by [facility], [employer] [address] [place] [address] , [address], [place] [address] Alvaro Covarrubias MD, [employer] CLIA: [id number] Sodium 141 135-145 mmol/L Potassium 4.9 3.5-5.3 [...] Interpretation:Normal Performing Lab: Notes/Report: Test performed by [facility] , [address], [place] [address] Alvaro Covarrubias MD, Utility B[employer] CLIA: [id number] Cholesterol 168 <200 mg/dL Triglycerides 117 <150 [...] Interpretation:Normal Performing Lab: Notes/Report: Test performed by [facility] [address] , [address], [place] [address] Alvaro Covarrubias MD, Utility [employer] CLIA: [id number] TSH reflex to FT4 1.67 0.43-5.25 mU/L [...] Poorly Controlled Diabetic Level Reason For Referral No Information Medications Medication SIG (Take, Route, Frequency, Duration) Notes Start Date End Date Status Irbesartan 150 MG 1 tab(s) orally once a day; Duration: 30 days patient needs appt Active guaiFENesin ER 600 MG 1 tablet as needed Orally every 12 hrs Active Atorvastatin Calcium 40 MG 1 tab(s) orally once a day; Duration: 90 days Active Famotidine 20 MG 1 tab(s) orally once daily; Duration: 90 days Active Metoprolol Succinate ER [...] Orally Three times a day 02/01/2025 Active Immunizations Vaccine Route Administration Date Status Comme nts DT, 7 YEARS OR OLDER Unknown 07/21/1996 Administered Tetanus Tdap-Adacel (over 7yrs) IM Intramuscular 09/22/2018 Administered Problems Problem Type SNOMED Code ICD Code Onset Dates Problem Status W/U Status Risk Notes Problem Hypertension (11572519) HTN (hypertension) (401.9) Active confirmed Problem Essential hypertension (91005933) Essential hypertension (I10) Active confirmed Problem Anxiety (15759854) Anxiety (F41.9) Active confi rmed Problem Mixed anxiety and depressive disorder (778698457) Depression with anxiety (F41.8) Active confirmed Problem Mixed hyperlipidemia (955011529) Mixed hyperlipidemia (E78.2) Active confirmed Problem Acquired hammer toe of right foot (6275339505041243) Other hammer toe(s) (acquired), right foot (M20.41) Active confirmed Problem Acquired hammer toe of left foot (8851781520982872) Other hammer toe(s) (acquired), left foot (M20.42) Active confirmed Problem Gastroesophageal reflux disease (201990474) Gastroesophageal reflux disease, esophagitis presence not specified (K21.9) Active confirmed Problem Neuropathy (567432272) Neuropathy (G62.9) Active confirmed Problem Insomnia disorder related to another mental disorder (50030759) Psychophysiological insomnia (F51.04) Active confirmed Problem Body mass index 40+ - morbidly obese (666529140) BMI 40.0-44.9, adult (Z68.41) Active confirmed Problem History of placement of stent for coronary artery disease (situation) (248143597) S/P coronary artery stent placement (Z95.5) Active confirmed Vital Signs Heart Rate 87 /min 02/01/2025 Blood pressure diastolic 80 mm Hg 02/01/2025 Height 63 in 02/01/2025 Blood pressure systolic 130 mm Hg 02/01/2025 Weight 237.6 lbs 02/01/2025 BMI 42.08 kg/m2 02/01/2025 Encounters Encounter Location Date Provider Diagnosis [address] [id number] 09/14/2024 Jasminalyn Bergeron Essential hypertensi on I10 ; Depression with anxiety F41.8 ; Gastroesophageal reflux disease, esophagitis presence not specified K21.9 ; Mixed hyperlipidemia E78.2 and S/P coronary artery stent placement Z95.5 [facility] [address] [id number] 09/22/2024 Jasminalyn Bergeron Essential hypertensi on I10 [address] [id number] 11/16/2024 Jasminalyn Bergeron Lower extremity pj a R60.0 and Symptomatic varicose veins of both lower extremities I83.893 [place] [address] [address] [id number] 02/01/2025 Jasminalyn Bergeron Acute cough R05.1 ; Lower extremity edema R60.0 ; Symptomatic varicose veins of both lower extremities I83.893 ; Essential hypertension I10 ; Gastroesophageal reflux disease, esophagitis presence not specified K21.9 ; S/P coronary artery stent placement Z95.5 ; Mixed hyperlipidemia E78.2 ; Psychophysiological insomnia F51.04 ; Depression with anxiety F41.8 and BMI 40.0-44.9, adult Z68.41 [facility] [address] [place], [place] [id number] 08/19/2024 Jasmina Bergeron Elevated bilirubin R 17 [facility] [address] [place], [place] [id number] 11/29/2024 Moni Head [facility] [address] [place], [place] [id number] 12/26/2024 Jasmina Bergeron Lower extremity pj a R60.0 Assessments Encounter Date Diagnosis (ICD Code) Assessment Notes Treatment Notes Treatment Clinical Notes Section Notes 08/19/2024 Elevated bilirubin (ICD-10 - R17) 09/14/2024 Essential hypertensi on (ICD-10 - I10) 09/14/2024 Depression with anxi ety (ICD-10 - F41.8) 09/22/2024 Essential hypertensi on (ICD-10 - I10) 11/16/2024 Lower extremity pj a (ICD-10 - R60.0) Spoke with cardiology about her recent stress test and echo. They would like for her to start on HCTZ and have a BMP in 1 week and f/u in their office in 2-3 weeks. They are sending the lab order to [facility]. 11/16/2024 Symptomatic varicose veins of both lower extremities (ICD-10 - I83.893) Will wear compression socks 12/26/2024 Lower extremity pj a (ICD-10 - R60.0) 02/01/2025 Lower extremity pj a (ICD-10 - R60.0) Will follow with cardiology. 02/01/2025 Acute cough (ICD-10 - R05.1) 02/01/2025 Symptomatic varicose veins of both lower extremities (ICD-10 - I83.893) Will wear compression socks 09/14/2024 Gastroesophageal ref lux disease, esophagitis presence not specified (ICD-10 - K21.9) 02/01/2025 Essential hypertensi on (ICD-10 - I10) 09/14/2024 Mixed hyperlipidemia (ICD-10 - E78.2) 09/14/2024 S/P coronary artery stent placement (ICD-10 - Z95.5) We normally do not fill her plavix. Will fill today but she was supposed to see cardiology last month. She will make appt. 02/01/2025 Gastroesophageal ref lux disease, esophagitis presence not specified (ICD-10 - K21.9) 02/01/2025 S/P coronary artery stent placement (ICD-10 - Z95.5) 02/01/2025 Mixed hyperlipidemia (ICD-10 - E78.2) 02/01/2025 Psychophysiological insomnia (ICD-10 - F51.04) 02/01/2025 Depression with anxi ety (ICD-10 - F41.8) 02/01/2025 BMI 40.0-44.9, adult (ICD-10 - Z68.41) Plan Of Treatment Pending Test Test Name Order Date DEXA Hip and Spine 07/30/2023 Mammogram 07/30/2023 H-TSH 02/03/2024 H-TSH 02/01/2025 H-CBC 02/01/2025 H-CBC 02/03/2024 H-BNP 02/01/2025 H-Lipid Panel 02/01/2025 H-Lipid Panel 02/03/2024 H-CMP 02/03/2024 H-CMP 02/01/2025 H-Glycohemoglobin A1C 02/03/2024 H-Bilirubin, Total 08/19/2024 Insurance Providers Payer Name Payer Address Payer Phone Subscriber Number Group Number Insured Name Patient Relationship to Insured Coverage Start Date Coverage End Date MEDICARE PART B [address] [address] [place] [address] [id number] LAURE CANSECO Self - patient is the insured [employer] MEDICARE SUPPLEMENT [address] [address] [place], [place] [id number] LAURE CANSECO Self - patient is the insured Medical (General) History Medical History History ICD Code CAD with stent placement when hositalize d 11/02/18 Surgical History Surgery Date(Month/Year) rt arm 10/21 Heart stent 11/01 Hospitalization History Reason Date(Month/Year) [facility] ER chest pain. 11/02/18
[2025-02-09 09:28] LABS: Hematocrit 39.5 % (37.0-47.0); Hemoglobin 11.9 g/dL (12.2-16.2); Immature Granulocytes % 0.3 %; Mean Corpuscular HGB Conc 30.1 g/dL (31.8-35.4); Mean Corpuscular Hemoglobin 24.6 pg (27.0-31.2); Mean Corpuscular Volume 81.6 fl (81-99); Nucleated Red Blood Cells % 0 %; Platelet Count 248 K/mm3 (142-424); Red Blood Count 4.84 M/mm3 (4.20-5.40); Red Cell Distribution Width-SD 48.9 fL; White Blood Count 7.7 K/mm3 (4.8-10.8)
[2025-02-09 10:05] LABS: Alanine Aminotransferase 27 U/L (12-78); Albumin Level 4.1 g/dl (3.5-5.0); Albumin/Globulin Ratio 1.6 (1.1-1.8); Alkaline Phosphatase 107 U/L (38-126); Anion Gap 11.0 mEq/L (5-15); Aspartate Amino Transferase 34 U/L (14-36); Bilirubin,Total 1.3 mg/dl (0.2-1.3); Blood Urea Nitrogen 21 mg/dl (7-17); Calcium 9.5 mg/dl (8.4-10.2); Carbon Dioxide 29 mmol/L (22.0-30.0); Chloride 102 mmol/L (98-107); Cholesterol 160 mg/dl (140-200); Creatinine,Serum 0.80 mg/dl (0.52-1.04); Estimated Glomerular Filt Rate 72 ml/min (>60); GFR (African American) 87 ML/MIN (>60); Globulin 2.6 g/dL (1.3-3.2); Glucose 105 mg/dl (74-100); Potassium 4.0 mmoL/L (3.5-5.1); Sodium 138 mmol/L (136-145); Total Protein,Serum 6.7 g/dl (6.3-8.2); Triglycerides 83 mg/dl (30-150)
[2025-02-09 10:16] LABS: NT Pro Brain Natriuretic Pep. 301 pg/mL (0-125)
[2025-02-09 10:38] LABS: Thyroid Stimulating Hormone 1.85 uIU/mL (0.465-4.68)
[2025-02-09 11:20] LABS: HDL Cholesterol 63 mg/dl (40-60)
== END 2025-02-09 23:59 | disposition home or self-care (01) ==
LOC: LAB 08:58
PROVIDERS: PCP Physician Assistant; Visit Provider Physician Assistant
DX: E78.2 Mixed hyperlipidemia (principal); R60.0 Localized edema; I10 Essential (primary) hypertension
CPT/HCPCS: 36415; 80053; 80061; 83880; 84443; 85025

== ENCOUNTER 2025-02-12 21:52 | Emergency (ER) | payer MEDICARE, SELFPAY ==
--- OUTSIDE RECORDS SUMMARY | 2024-09-14 07:30 | XMS_ITS ---
Author Organization [facility] Address [address] [facility] [address] [place] [id number] Care Team Providers Care Territory Manager Name Role Phone Moni Head Primary Care Provider Jasmina Bergeron Unavailable [phone] Allergies No Known Allergies Results Component Value Reference Range Notes CBC Venipuncture (in house) Reviewed date:09/22/2024 01:38:32 PM Interpretation:not performed Performing Lab: Notes/Report: not performed P-Comprehensive Metabolic Pa daniel (CMP) Reviewed date:09/16/2024 01:35:00 PM Interpretation:Normal Performing Lab: Notes/Report: CLIA: [id number] Alvaro Covarrubias MD, Radar Repairer [facility] , [address], [place] [address] Test performed by [facility] Sodium 141 135-145 mmol/L Potassium 4.9 3.5-5.3 [...] Interpretation:Normal Performing Lab: Notes/Report: Test performed by [facility] [address] [place] [address] , [place] [address] Alvaro Covarrubias MD, Radar Repairer CLIA: [id number] Cholesterol 168 <200 mg/dL Triglycerides 117 <150 [...] Interpretation:Normal Performing Lab: Notes/Report: Test performed by [facility] [address] [place] [address] , [address], [place] [address] Alvaro Covarrubias MD, Radar Repairer CLIA: [id number] TSH reflex to FT4 1.67 0.43-5.25 mU/L [...] day; Duration: 90 days Active Vital Signs Weight 241.8 lbs 09/14/2024 Blood pressure systolic 130 mm Hg 09/15/19 25 Blood pressure diastolic 80 mm Hg 025 Heart Rate 73 /min 09/14/2024 Height 63 in 09/14/2024 BMI 42.83 kg/m2 09/14/2024 Encounters Encounter Location Date Provider Diagnosis [facility] [address] [facility] [address] [place], [place] [id number] 09/14/2024 Jasmina Bergeron Essential hypertensi on I10 [...] test results, Reason: Progress Notes * LAURE CANSCEODOB: [birth year] (64 yo F)Acc No.[id number]:09/14/2024 Progress Notes Patient: LAURE ESTRADA Provider: ANDRE Youngblood :1960 A ge:64 Y S ex:Female Date:09/14/2024 Address:[address] [place], [id number] Pcp:Moni Head Subjective: * Chief Complaints: * [...] * Images: Billing Information: * Visit Code: 74492 Office Visit, Est Pt., Level 4. * Procedure Codes: 3075F SYST BP GE 130 - 139MM HG. 3079F DIAST BP 80-89 MM HG. * Electronic signature of ANDRE Martinez on 02/12/2025 at 10:44 PM EDT Sign off status: Pending * Provider: ANDRE Youngblood Date: 0 09/14/2024 Generated for Letha ford/Majo/eTransmitting on: 0 02/12/2025 10:44 PM EDT History and Physical Notes * HPI [...]
--- OUTSIDE RECORDS SUMMARY | 2024-09-22 07:15 | XMS_ITS ---
Author Organization Suzi Address [address] [facility] [address] [place] [id number] Care Team Providers Care Applications Scientist Name Role Phone Moni Head Primary Care Provider Jasmina Bergeron [phone] Results Component Value Reference Range Notes CBC [...] Encounter Location Date Provider Diagnosis Suzi [address] [facility] [address] [place] [id number] 09/22/2024 Jasmina Bergeron Essential hypertensi on I10 Assessments Encounter Date Diagnosis (ICD Code) Assessment Notes Treatment Notes Treatment Clinical Notes Section Notes 09/22/2024 Essential hypertension (ICD-10 - I10) Plan Of Treatment No Information Progress Notes * LAURE CANSECODOB: [birth year] (64 yo F)Acc No.[id number]:09/22/2024 Patient: LAURE ESTRADA Provider: ANDRE Youngblood :1960 A ge:64 Y S ex:Female Date:09/22/2024 Address:[address], [id number] Pcp:Moni Head Subjective: * Chief Complaints: * [...] Procedure Codes: 3 6416 CAPILLARY BLOOD DRAW, 81201 CBC WITH AUTO DIFF * Images: Billing Information: * Visit Code: * Procedure Codes: 35154 CAPILLARY BLOOD DRAW. 55326 CBC WITH AUTO DIFF. * Electronic signature of ANDRE Martinez on 02/12/2025 at 10:44 PM EDT Sign off status: Pending * Provider: ANDRE Youngblood Date: 0 09/22/2024 Generated for Marcusi ng/Majo/eTransmitting on: 0 02/12/2025 10:44 PM EDT
--- OUTSIDE RECORDS SUMMARY | 2024-11-16 06:00 | XMS_ITS ---
Author Organization [facility] Address [address] [facility] [address] [place] [phone] Care Team Providers Care Bacteriologist Fishery Name Role Phone Moni Head Primary Care Provider Jasmina Bergeron Unavailable [phone] Allergies No Known Allergies REASON FOR VISIT [...] Duration: 30 day(s) 10/25/2019 Active Vital Signs Weight 241.4 lbs 11/16/2024 Blood pressure systolic 136 mm Hg 11/17/19 25 Blood pressure diastolic 82 mm Hg 025 Heart Rate 83 /min 11/16/2024 Height 63 in 11/16/2024 BMI 42.76 kg/m2 11/16/2024 Encounters Encounter Location Date Provider Diagnosis [facility] [address] [place] [phone] 11/16/2024 Jasmina Bergeron Lower extremity pj a [...] They are sending the lab order to [facility]. 11/16/2024 Symptomatic varicose veins of both [...] They are sending the lab order to [facility]. Symptomatic varicose veins o f both lower extremities Will wear compression socks Next Appt Details Follow Up: with cardiology, Reason: Progress Notes * LAURE CANSECODOB: [birth year] (64 yo F)Acc No.[id number]:11/16/2024 Progress Notes Patient: LAURE ESTRADA Provider: ANDRE Youngblood :1960 A ge:64 Y S ex:Female Date:11/16/2024 Address:[address], [id number] Pcp:Moni Head Subjective: * Chief Complaints: * [...] < 90MM HG * Follow Up: w [facility] cardiology * Images: Billing Information: * Visit Code: 08162 Office Visit, Est Pt., Level 3. * [...] Pending * Provider: ANDRE Youngblood Date: 0 11/16/2024 Generated for Letha ford/Majo/Suyapaitting on: 0 02/12/2025 10:44 PM EDT History [...]
--- OUTSIDE RECORDS SUMMARY | 2025-02-01 05:00 | XMS_ITS ---
[facility] Address [address] [place] [id number] Care Team Providers Care Physical Science Aide Name Role Phone Moni Head Primary Care Provider [phone] Jasmina Bergeron [phone] Allergies No Known Allergies Results Component Value Reference Range Notes H-TSH Reviewed date:02/09/2025 12:54:25 PM Interpretation: Performing Lab: Notes/Report: H-CBC Reviewed date:02/09/2025 12:54:37 PM Interpretation: Performing Lab: Notes/Report: H-BNP Reviewed date:02/09/2025 12:54:49 PM Interpretation: Performing Lab: Notes/Report: H-Lipid Panel Reviewed date:02/09/2025 12:54:59 PM Interpretation: Performing Lab: Notes/Report: H-CMP Reviewed date:02/09/2025 12:55:10 PM Interpretation: Performing Lab: Notes/Report: REASON FOR VISIT 1 month Medications Medication [...] Body mass index 40+ - morbidly obese (332657985) BMI 40.0-44.9, adult (Z68.41) Active confirmed Vital Signs Weight 237.6 lbs 02/01/2025 Blood pressure systolic 130 mm Hg 02/02/20 25 Blood pressure diastolic 80 mm Hg 025 Heart Rate 87 /min 02/01/2025 Height 63 in 02/01/2025 BMI 42.08 kg/m2 02/01/2025 Encounters Encounter Location Date Provider Diagnosis [facility] [address] [id number] 02/01/2025 Jasmina Bergeron Acute cough R05.1 ; [...] Notes Lower extremity edema Will follow with maria [facility] ardiology. Symptomatic varicose veins of both lower extremities Will wear compression socks Next Appt Details Follow Up: via phone to repo rt test results, Reason: Progress Notes * LAURE CANSECODOB: [birth year] (64 yo F)Acc No.[id number]:02/01/2025 Progress Notes Patient: LAURE ESTRADA Provider: ANDRE Youngblood :1960 A ge:64 Y S ex:Female Date:02/01/2025 Address:[address], [id number] Pcp:Moin Head Subjective: * Chief Complaints: * 1 . 1 month. * HPI: A nkle/Foot: Swelling P t complains of ongoing b ilateral leg swelling. Pt states nothing is helping them. She has seen cardiology and they started her on Lasix. They are following up with her in about a week.. E NT/respiratory: Pt states she went to [facility] last week and she tested positive for [...] Temp: 98.0, BP: 130/80, HR: 87, Nurse: pe, Ht: 63, BMI:42.08. * Examination: G eneral [...] L ower extremity edema L AB: H-TSH (Collection Date & Time - 02/09/2025) ?LAB: H-BNP (Collection Date & Time - 02/09/2025) Notes: Will follow with cardiology.??3.?Symptomatic varicose veins of both lower extremities? Notes: Will wear compression socks??4.?Essential hypertension?LAB: H-CBC (Collection Date & Time - 02/09/2025) ?LAB: H-CMP (Collection Date & Time - 02/09/2025)5.?Mixed hyperlipidemia?LAB: H-Lipid Panel (Collection Date & Time - 02/09/2025) * Procedure Codes: G 2211 Complex e/m visit add on, 1036F TOBACCO NON-USER, G8950 PREHTN/HTN BP DOC INDCD F/U DOC, 3075F SYST BP GE 130 - 139MM HG, 3079F DIAST BP 80-89 MM HG * Follow Up: v ia phone to report test results * Images: Billing Information: * Visit Code: 73209 Office Visit, Est Pt., Level 4. * [...] Youngblood Date: 0 02/01/2025 Generated for Letha ford/Majo/eTransmitting on: 0 02/12/2025 [...]
--- NOTE | 2025-02-12 22:37 | HMH.EDGENADL ---
Discharge Plan Disposition Patient Disposition: Home, Self-Care Condition: Good Prescriptions Prescriptions: No Action spironolactone [Aldactone] 25 mg tablet 25 mg PO DAILY Qty: 30 2RF famotidine [Acid Mobile Practice Lead (famotidine)] 20 mg tablet 20 mg PO DAILY atorvastatin 40 mg tablet 40 mg PO DAILY furosemide [Lasix] 40 mg tablet 40 mg PO DAILY Qty: 90 3RF guaifenesin 600 mg tablet extended release 12hr 600 mg PO Q12H PRN (Reason: congestion) Qty: 30 0RF clopidogrel 75 mg tablet See Rx Instructions .ROUTE .COMPLEX Qty: 90 1RF Dose Instruction: TAKE 1 TABLET BY MOUTH EVERY DAY Rx Instructions: TAKE 1 TABLET BY MOUTH EVERY DAY irbesartan 150 mg tablet See Rx Instructions .ROUTE .COMPLEX Qty: 30 5RF Dose Instruction: TAKE ONE TABLET BY MOUTH EVERY DAY Rx Instructions: TAKE ONE TABLET BY MOUTH EVERY DAY metoprolol succinate 25 MG tablet extended release 24 hr 25 mg PO DAILY Qty: 30 4RF Referrals Follow up/Referrals: Jasmina Bergeron PA [Primary Care Provider, Medical] - See instructions Activity Restrictions/Add. Instructions Additional Instructions/Restrictions: Keep the compressive dressing on your leg overnight. If you start to bleed again, put pressure on the wound for 10 minutes and then release to see if it is still bleeding. I have sent you with a referral to vascular surgery if you would like help with your varicose veins Clinical Impressions Clinical Impression: Skin tear Instructions Patient Instructions: DI for Laceration Repair Print Language Print Language: Honduran Discharge ED Provider: Chayo Jaquez Adult HPI General Chief complaint: Wound/Laceration Stated complaint: leg bleeding, on blood thinners Time Seen by Provider: 02/12/25 22:37 History of Present Illness HPI narrative: Patient is a 64-year-old female on blood thinners who presents to the emergency department with bleeding to the left leg. Has very superficial varicose veins the patient states that she was itching her leg and it started to bleed. Patient states that despite pressure at Bleeding that is why she came here to the emergency department. Patient denies any other injuries falls or trauma. Related Data Home Medications ?Medication ?Instructions ?Recorded ?Confirmed famotidine 20 mg tablet (Acid 20 mg PO DAILY Heartburn 06/13/20 02/09/25 Mobile Practice Lead (famotidine)) atorvastatin 40 mg tablet 40 mg PO DAILY 01/22/22 02/09/25 Previous Rx's ?Medication ?Instructions ?Recorded metoprolol succinate 25 mg 25 mg PO DAILY ##30 11/02/18 tablet,extended release 24 hr clopidogrel 75 mg tablet See Rx Instructions .Route 08/28/23 .COMPLEX #90 tabs irbesartan 150 mg tablet See Rx Instructions .Route 08/24/24 .COMPLEX #30 tabs furosemide 40 mg tablet (Lasix) 40 mg PO DAILY #90 tabs 01/09/25 guaifenesin 600 mg tablet, 600 mg PO Q12H PRN congestion #30 01/26/25 extended release 12 hr tabs spironolactone 25 mg tablet 25 mg PO DAILY #30 tabs 02/09/25 (Aldactone) Allergies Allergy/AdvReac Type Severity Reaction Status Date / Time No Known Allergies Allergy Verified 02/09/25 13:49 [facility] Disclaimer: The information contained in this section may have been updated after the patient was seen, as this information can be updated by other users. Medical History Edema of both lower extremities Claudication Leg pain HLD (hyperlipidemia) Social History Smoking Status: Never smoker alcohol intake: never counseling provided: none substance use type: denies use current occupational status: employed Travel in the last 8 weeks?: Inside the [facility] housing: house caffeine: Yes Other Medical History Have you received the Flu Vaccine for this season: No Have you received the Pneumonia Vaccine: No ROS Obtained: Yes All systems reviewed & no additional complaints except as documented and Yes Systems reviewed as appropriate & no additional complaints except as documented Physical Exam General General appearance: alert and in no apparent distress Head Head exam: atraumatic, normocephalic and normal inspection Eye Eye exam: Present normal appearance, PERRL and EOMI; Absent scleral icterus ENT ENT exam: Present normal exam and normal external ear exam Neck Neck exam: Present normal inspection and full ROM Chest Chest inspection: Present normal inspection and symmetric chest wall rise Respiratory Respiratory exam: Present normal lung sounds bilaterally; Absent respiratory distress or wheezes Cardiovascular Cardiovascular exam: Present regular rate, normal rhythm and normal heart sounds Abdominal Exam Abdominal exam: Present soft and distention; Absent tenderness, guarding or rebound Extremities Exam Extremities exam: Present normal inspection and full ROM Back Exam Back exam: Present normal inspection and full ROM Neurological Exam Neurological exam: Present alert and oriented X3 Psychiatric Psychiatric exam: Present normal affect and normal mood Skin Skin exam: Present warm, dry and other (L leg with very superficial varicose veins, no active bleeding or laceration) Medical Decision Making Medical Records Medical records reviewed: Yes I reviewed the patient's medical records. Screening: Per USPSTF and CDC recommendations, given the prevalence of disease in our region, it is our hospital?s policy to screen for HIV and viral Hepatitis for all patients aged 18 and over and those with ongoing risk factors. Moose Inquiry Pt receiving controlled substance: No Vital Signs: 02/12/25 22:39 02/12/25 23:25 Temperature 98.2 F 98.0 F Temperature Source Temporal Artery Scan Temporal Artery Scan Pulse Rate 77 Pulse Rate [Right Radial] 97 H Respiratory Rate 15 20 Blood Pressure 120/79 Blood Pressure [Right Arm] 139/103 H Blood Pressure Mean [Right Arm] 115 Blood Pressure Source Automatic Cuff Blood Pressure Source [Right Arm] Automatic Cuff Blood Pressure Position Sitting Blood Pressure Position [Right Arm] Sitting 02 Sat by Pulse Oximetry 100 Oxygen Delivery Method Room Air Room Air Lab Data Lab results reviewed: Yes I reviewed the patient's lab results. Medical Decision Narrative: Patient is an otherwise healthy 64-year-old female who presented to the emergency department with left lower leg bleeding. Patient states that she was itching her leg when one of her varicose veins started bleeding. Patient states that she was unable to get the bleeding to stop at home and therefore put a dressing on and came here to the emergency department. On arrival, patient was hemodynamically stable with unremarkable vital signs. Differential includes but not limited to: Venous bleeding, arterial bleeding, laceration, varicose vein complication, amongst others On exam, patient had no active bleeding. Patient's varicose veins are very superficial to the surface. Patient likely nicked 1 of those veins when scratching. However at this time, I felt the patient was appropriate for discharge home. Patient was given a compressive dressing no further workup was felt to be indicated. Patient was given return precautions. Critical Care Critical Care Time Critical Care Time: No
[2025-02-12 22:39] VITALS: BP 139/103; PULSE 97; RESP 15; TEMP 36.8; O2SAT 100; BMI 39.7
--- OUTSIDE RECORDS SUMMARY | 2025-02-12 22:45 | XMS_ITS | Patient Health Record ---
Author Organization [facility] Address [address] [facility] [address] MYAH Joiner [id number] Care Team Providers Care Hospitality Associate Name Role Phone Moni Head Primary Care Provider AdamaJasmina albert Unavailable [phone] Allergies No Known Allergies Results Component Value Reference Range Notes CBC Venipuncture (in house) Reviewed date:09/22/2024 01:38:32 PM Interpretation:not performed Performing Lab: Notes/Report: not performed P-Comprehensive Metabolic Pa daniel (CMP) Reviewed date:09/16/2024 01:35:00 PM Interpretation:Normal Performing Lab: Notes/Report: Test performed by [facility] [address] [place] [address] , [address], [place] [address] Alvaro Covarrubias MD, [employer] CLIA: [id number] Sodium 141 135-145 mmol/L Potassium 4.9 3.5-5.3 [...] Interpretation:Normal Performing Lab: Notes/Report: Test performed by [facility] [address] [place] [address] , [address], [place] [address] Alvaro Covarrubias MD, [employer] CLIA: [id number] Cholesterol 168 <200 mg/dL Triglycerides 117 <150 [...] Interpretation:Normal Performing Lab: Notes/Report: Test performed by [facility] , [address], [place] [address] Alvaro Covarrubias MD, [employer] CLIA: [id number] TSH reflex to FT4 1.67 0.43-5.25 mU/L [...] - 38 plat 193 100 - 400 H-TSH Reviewed date:02/09/2025 12:54:25 PM Interpretation: Performing Lab: Notes/Report: H-CBC Reviewed date:02/09/2025 12:54:37 PM Interpretation: Performing Lab: Notes/Report: H-BNP Reviewed date:02/09/2025 12:54:49 PM Interpretation: Performing Lab: Notes/Report: H-Lipid Panel Reviewed date:02/09/2025 12:54:59 PM Interpretation: Performing Lab: Notes/Report: H-CMP Reviewed date:02/09/2025 12:55:10 PM Interpretation: Performing Lab: Notes/Report: H-TSH Reviewed date:02/10/2025 12:05:38 PM Interpretation:Normal Performing Lab: Notes/Report: TSH 1.85 0.465-4.68 uIU/mL H-CMP Reviewed date:08/25/2024 02:50:37 PM Interpretation:BUN 19, [...] Level > 8% Poorly Controlled Diabetic Level H-CBC Reviewed date:02/10/2025 12:05:38 PM Interpretation:hgb 11.9, mch 24.6, mchc 30.1, mpv 11.7 Performing Lab: Notes/Report: WBC 7.7 4.8-10.8 K/mm3 RBC 4.84 4.20-5.40 M/mm3 HGB 11.9 12.2-16.2 g/dL HCT 39.5 37.0-47.0 % MCV 81.6 81-99 fl MCH 24.6 27.0-31.2 pg MCHC 30.1 31.8-35.4 g/dL RDW-SD 48.9 RDW 16.7 11.5-17.5 % PLT 248 142-424 K/mm3 MPV 11.7 7.4-10.4 fl NE% 68.5 37.0-80.0 % LY% 19.9 10-50 % MO% 7.5 1.7-9.3 % EO% 3.0 0.1-12.0 % BA% 0.8 0.1-2.0 % NRBC% 0 IG% 0.3 NE# 5.3 1.8-7.8 K/mm3 LY# 1.5 0.7-4.5 K/mm3 MO# 0.6 0.1-1.0 K/mm3 EO# 0.2 0.0-0.4 Kmm3 BA# 0.1 0-0.2 K/mm3 NRBC# 0 IG# 0.02 H-BNP Reviewed date:02/10/2025 12:05:38 PM Interpretation:301 Performing Lab: Notes/Report: BNPNTP 301 0-125 pg/mL H-Lipid Panel Reviewed date:02/10/2025 12:05:39 PM Interpretation:DLDL 83.81, HDL 63 Performing Lab: Notes/Report: Patient Fasting? Y TRIG 83 30-150 mg/dl CHOL 160 140-200 mg/dl DLDL 83.81 100-129 mg/dL VLDL 17 0-40 mg/dL HDL 63 40-60 mg/dl CHLHDL 2.5 1-3.5 H-CMP Reviewed date:02/10/2025 12:05:39 PM Interpretation:BUN 21 Performing Lab: Notes/Report: NA 138 136-145 mmol/L K 4.0 3.5-5.1 mmoL/L CL 102 98-107 mmol/L CO2 29 22.0-30.0 mmol/L GAP 11.0 5-15 mEq/L BUN 21 7-17 mg/dl CREATT 0.80 0.52-1.04 mg/dl GFRAA 87 >60 ML/MIN EGFR 72 >60 ml/min GLU 105 74-100 mg/dl CA 9.5 8.4-10.2 mg/dl BILIT 1.3 0.2-1.3 mg/dl AST 34 14-36 U/L ALT 27 12-78 U/L TP 6.7 6.3-8.2 g/dl ALB 4.1 3.5-5.0 g/dl GLOB 2.6 1.3-3.2 g/dL AGRATIO 1.6 1.1-1.8 ALP 107 38-126 U/L Reason For Referral No Information Medications Medication [...] Status W/U Status Risk Notes Problem Hypertension (86850936) HTN (hypertension) (401.9) Active confirmed Problem Essential hypertension (09246031) Essential hypertension (I10) Active confirmed Problem Anxiety (08481636) Anxiety (F41.9) Active confi rmed Problem Mixed anxiety and depressive disorder (724936806) Depression with anxiety (F41.8) Active confirmed Problem Mixed hyperlipidemia (733649462) Mixed hyperlipidemia (E78.2) Active confirmed Problem Acquired hammer toe of right foot (1232729569195688) Other hammer toe(s) (acquired), right foot (M20.41) Active confirmed Problem Acquired hammer toe of left foot (5972043238973486) Other hammer toe(s) (acquired), left foot (M20.42) Active confirmed Problem Gastroesophageal reflux disease (855855936) Gastroesophageal reflux disease, esophagitis presence not specified (K21.9) Active confirmed Problem Neuropathy (816872622) Neuropathy (G62.9) Active confirmed Problem Insomnia disorder related to another mental disorder (40219583) Psychophysiological insomnia (F51.04) Active confirmed Problem Body mass index 40+ - morbidly obese (135539688) BMI 40.0-44.9, adult (Z68.41) Active confirmed Problem History of placement of stent for coronary artery disease (situation) (777648037) S/P coronary artery stent placement (Z95.5) Active confirmed Vital Signs Heart Rate 87 /min 02/01/2025 Blood pressure diastolic 80 mm Hg 02/01/2025 Height 63 in 02/01/2025 Blood pressure systolic 130 mm Hg 02/01/2025 Weight 237.6 lbs 02/01/2025 BMI 42.08 kg/m2 02/01/2025 Encounters Encounter Location Date Provider Diagnosis [facility] [address] [id number] 09/14/2024 Jasmina Rubio Essential hypertensi on I10 ; Depression with anxiety F41.8 ; Gastroesophageal reflux disease, esophagitis presence not specified K21.9 ; Mixed hyperlipidemia E78.2 and S/P coronary artery stent placement Z95.5 [facility] [place] [address] [facility] [address] [id number] 09/22/2024 Jasmina Rubio Essential hypertensi on I10 [facility] [place] [address] [facility] [address] [id number] 11/16/2024 Jasmina Rubio Lower extremity pj a R60.0 and Symptomatic varicose veins of both lower extremities I83.893 [facility] [address] [facility] [address] [id number] 02/01/2025 Jasmina Rubio Acute cough R05.1 ; Lower extremity edema R60.0 ; Symptomatic varicose veins of both lower extremities I83.893 ; Essential hypertension I10 ; Gastroesophageal reflux disease, esophagitis presence not specified K21.9 ; S/P coronary artery stent placement Z95.5 ; Mixed hyperlipidemia E78.2 ; Psychophysiological insomnia F51.04 ; Depression with anxiety F41.8 and BMI 40.0-44.9, adult Z68.41 [facility] [place] [address] [facility] [address] [id number] 02/10/2025 Jasmina Rubio [facility] [place] [address] [facility] [address] [id number] 08/19/2024 Jasmina Rubio Elevated bilirubin R 17 [facility] [place] [address] [facility] [address], [place] [id number] 11/29/2024 Moni Head [facility] [address] [facility] 36 [facility] [address] MYAH Joiner [id number] 12/26/2024 Jasmina Bergeron Lower extremity pj a [...] They are sending the lab order to [facility]. 11/16/2024 Symptomatic varicose veins of both lower [...] K21.9) 09/14/2024 Mixed hyperlipidemia (ICD-10 - E78.2) 02/01/2025 Essential hypertensi on (ICD-10 - I10) 09/14/2024 S/P coronary artery stent placement (ICD-10 [...] Date MEDICARE PART B [address] [address] [place] [address] [id number] LAURE [employer] Self - patient is the insured [employer]ANC[employer] MEDICARE SUPPLEMENT [address] [address] [place], [place] [id number] LAURE [employer]SE[employer] Self - patient is the insured Medical (General) History Medical History History ICD Code CAD with stent placement when hositalize d 11/02/18 Surgical History Surgery Date(Month/Year) rt arm 10/21 Heart stent 11/01 Hospitalization History Reason Date(Month/Year) [facility] ER chest pain. 11/02/18
[2025-02-12 23:25] VITALS: BP 120/79; PULSE 77; RESP 20; TEMP 36.7; O2SAT 99
== END 2025-02-12 23:25 | disposition home or self-care (01) ==
PROVIDERS: Emergency Provider Student in an Organized Health Care Education/Training Program; PCP Physician Assistant
DX: I83.892 Varicose veins of left lower extremity with other complications (principal); W26.8XXA Contact with other sharp object(s), not elsewhere classified, initial encounter; Z79.01 Long term (current) use of anticoagulants
CPT/HCPCS: 99282

== ENCOUNTER 2025-03-16 10:00 | Outpatient (RCR) | payer MEDICARE, SELFPAY ==
--- NOTE | 2025-02-27 14:26 | HMH.OPLYMPH ---
Rehab Lymphedema Evaluation Rehab Lymphedema Evaluation Start: 02/27/25 14:10 Freq: Status: Active Protocol: Document 02/27/25 14:11 [email or web address] (Rec: 02/27/25 14:26 PHORNE [id number]) E-signed By Praful Miller, PT Subjective/History History History This is the initial PT eval for Sol Bates, 64 yowf who presents with c/o B LE increased edema which is worse x 2-3 mos. She reports several year hx of exacerbating and remitting edema, but now her symptoms have increased. She reports Increased c/o dry, itchy skin and pain in B lower legs. She recently had an episode of scratching her leg which resulted in bleeding from a varicose vein that was very difficult to stop. She does take anticoagulants for other medical conditions. She has PMH of HTN, CAD, possible THOMAS, and possible CHF. Subjective Subjective Pain currently 0/10, at worst 4/10 in B lower legs with increased intermittent numbness and tingling. 2/4 TTP to B lower legs in the gaiter area with MODERATE blanchable erythema. LLIS score: 52. Multiple varicosities noted to B LE. Pt reports increased difficulty with donning socks and shoes due to edema. New diagnosis of No cancer in past 12 months? Lymphedema Eval Classification of Lymphedema Secondary Lymphedema Yes: likely CVI Stemmer's sign Stemmer's Sign yes Stage of Lymphedema Lymphedema stages Stage I (Pitting edema, reduces w/ elevation, no fibrosis) Skin Changes Dry Skin Yes Taut, Shiny Skin Yes Redness Yes Brittle Uneven Nails Yes Discoloration of Yes Skin Other Changes Yes Pain Scale Pain Scale (0-10) 4 Affected Extremities Areas Affected by Right Lower Extremity,Left Lower Extremity Lymphedema/Edema Lower Extremity Measurements Right MTP Measurement (cm) 25.5 Heel Measurement (cm 34.3 ) 10 cm Proximal to 32.5 Lateral Malleoli Measurement (cm) 20 cm Proximal to 44.0 Lateral Malleoli Measurement (cm) 30 cm Proximal to 45.1 Lateral Malleoli Measurement (cm) 40 cm Proximal to 0 Lateral Malleoli Measurement (cm) 50 cm Proximal to 0 Lateral Malleoli Measurement (cm) 60 cm Proximal to 0 Lateral Malleoli Measurement (cm) Lower Extremity 181.4 Measurement Total ( cm) Left MTP Measurement (cm) 24.3 Heel Measurement (cm 34.2 ) 10 cm Proximal to 36.3 Lateral Malleoli Measurement (cm) 20 cm Proximal to 43.2 Lateral Malleoli Measurement (cm) 30 cm Proximal to 49.0 Lateral Malleoli Measurement (cm) 40 cm Proximal to 0 Lateral Malleoli Measurement (cm) 50 cm Proximal to 0 Lateral Malleoli Measurement (cm) 60 cm Proximal to 0 Lateral Malleoli Measurement (cm) Lower Extremity 187.0 Measurement Total ( cm) Manual Lymphatic Drainage Treatment Area MLD Treatment Area Right Lower Extremity,Left Lower Extremity Wound Problems/Impairments Impairments Problems/ Palpation Tenderness,Impaired Endurance,Impaired Impairmments Walking,Impaired Standing,Impaired Sitting,Impaired Dressing,Impaired Household Care,Increased Edema, Lymphedema Present,Subjective C/O Pain,Impaired Self Care/Self Management Prognosis Rehab Potential Good Comment Skilled therapy is indicated to aid reduction of overall lymphedema in order to assist pt return to improved QOL. 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 5) Be independent with home lymphedema management via [facility] Outpatient Therapy Plan of Care Treatment Plan May Include Therapeutic Exercise Yes Including Home Exercise Program Manual Therapy Yes Techniques Neuromuscular Re- Yes education Therapeutic Yes Activities to Return to Previous Functional/Work Level ADL/Self Care Yes Education Orthotics/Bracing/ Yes Splinting Manual Lymphatic Yes Drainage Eval/Re-Eval Yes Frequency Times per week 2 Duration Number of Weeks 4 Addendums This patient is a No candidate for social or vocational rehab ? Patient/Guardian Yes verbally acknowledges understanding of treatment program and consents to further treatment? Patient/Guardian Yes verbally acknowledges understanding of diagnosis, prognosis and goals for treatment? Eval Complexity PT Charges 33116 - High Complexity PHYSICIAN CERTIFICATION: I certify the specified therapy services for Sol Jana are required, authorized, and reviewed every 30 days.
== END 2025-03-16 23:59 | disposition home or self-care (01) ==
LOC: PT 10:00
PROVIDERS: PCP Physician Assistant; Visit Provider Family Medicine
DX: I89.0 Lymphedema, not elsewhere classified (principal)
CPT/HCPCS: 97140; 97163

== ENCOUNTER 2025-03-22 12:43 | Outpatient (CLI) | payer MEDICARE, SELFPAY ==
--- NOTE | 2025-03-22 13:00 | CA_ITS ---
APPROVED REPORT EXAM: Comprehensive 2D, Doppler, and color-flow Echocardiogram Project Engineer: ZAIDA Aleman, RVS Ht: 5 ft 5 in Wt: 240lbs BSA: 2.14 BP: 140/73 mmHg Indications: Dyspnea, Pulmonary artery ectasia, HTN, CASH, CAD, possible RV dilitation Echo Enhancing Agent Indication: Rule Out Septal Defect Agent(s) / Amount(s) Used: Agitated Saline 20 cc Definity 2 cc 2D Dimensions IVSd 0.94 cm F: 0.6-1.0 LVEF (Visual) 59.80 % PWd 0.85 cm F: 0.6 - 1.0 LA Volume 28.40 mL LVDd 4.31 cm F: 3.9 - 5.3 LA Volume Index 13.718774 mL/m2 (M/F) 16-34 LVDs 2.95 cm F: 2.2 - 3.5 Left Atrium 2.88 cm F: 2.7 - 3.8 M-Mode Dimensions RVDd 2.58 cm (0.9-2.6) LA Diam 3.44 cm (1.9-4.0) LVDd 5.46 cm (3.5-5.7) LVDs 3.52 cm (3.5-5.7) IVSd 0.77 cm (0.6-1.1) PWd 0.70 cm (0.6-1.1) EF (Teich) 64.40% EPSs 0.39 cm FS 35.50% EDV (Teich) 145.00 mL TAPSE 2.58 (<1.7) ESV (Teich) 51.60 mL LV Diastology E Decel Time 157 (160-240 msec) E/A Ratio 1.07 MED A' 9.60 cm/s LAT A' 13.60 cm/s Pulm Vein s 49.00 cm/sec Ar-A Duration 123.00 msec Aortic Valve EMERY Index 0.98 cm2/m2 AoV Peak Koby. 158.0 (50-130 cm/s) AI PHT 394.00 ms AO Peak GR. 9.90 mmHg AO Mean GR. 4.90 (<5 mmHg) AO VTI 30.6 (18-25 cm) EMERY (VTI) 2.14 (2.5-4.5 cm2) Mitral Valve MV A Velocity 75.0 (40-130 cm/s) E/A Ratio 1.07 Pulmonary Valve PV Peak Velocity 104.0 (50-150 cm/s) Left Ventricle The left ventricle is normal size. Left ventricular systolic function is normal. The left ventricular ejection fraction is within the normal range. There is normal left ventricular wall thickness. There is normal LV segmental wall motion. The left ventricular diastolic function is normal. No left ventricle thrombus noted on this study. LVEF is 55% Right Ventricle The right ventricle is mildly dilated. The right ventricular systolic function is normal. Atria The left atrium is mildly dilated. The right atrium is mildly dilated. There is no color Doppler evidence of interatrial shunt. Agitated saline administration demonstrates no evidence of interatrial shunt. Aortic Valve The aortic valve opens well. There is no hemodynamically significant aortic valvular stenosis. Mild aortic regurgitation is present. Mitral Valve The mitral valve is normal in structure. No evidence of mitral valve stenosis. Mild mitral regurgitation is present. Tricuspid Valve The tricuspid valve leaflets are thin and pliable. Trace tricuspid regurgitation. There is insufficient TR jet to estimate RVSP. Pulmonic Valve The pulmonary valve is grossly normal in structure. Trace pulmonic valve regurgitation is present. Great Vessels The aortic root is normal in size. IVC is normal in size and collapses >50% with inspiration. Pericardium There is no pericardial effusion. Other Information Study Quality: Fair Conclusion Normal biventricular systolic function. Mild RV dilation. Mild biatrial dilation. Mild AI, mild MR. Agitated saline administration demonstrates no evidence of interatrial shunt. Electronically signed by : Mone Estrada MD 04/03/2025 17:40:59
[2025-03-22 13:59] LABS: Blood Urea Nitrogen 25 mg/dl (7-17)
[2025-03-22] MEDS: DEFINITY US ECHO CONTRAST 2ML INJ 2 MG IV (13:59)
[2025-03-22 14:00] LABS: Creatinine,Serum 0.90 mg/dl (0.52-1.04); Estimated Glomerular Filt Rate 63 ml/min (>60); GFR (African American) 76 ML/MIN (>60)
[2025-03-22] MEDS: IOPAMIDOL-370 (76%);100ML BOTTLE 75 ML IV (14:22)
[2025-03-22] MEDS: SODIUM CHLORIDE 0.9% 10ML SYR (RAD ONLY) 10 ML IV (14:22)
--- NOTE | 2025-03-22 14:30 | CT_ITS ---
FINAL REPORT TECHNIQUE: The patient was injected with IV contrast. Axial images were obtained of the chest by computed tomography. Precontrast images were also obtained. This study was performed with techniques to keep radiation doses as low as reasonably achievable (ALARA). Individualized dose reduction techniques using automated exposure control or adjustment of mA and/or kV according to the patient's size were employed. CLINICAL HISTORY: shortness of breath COMPARISON: None FINDINGS: CT OF THE CHEST WITH AND WITHOUT CONTRAST: There are small bilateral hypodense thyroid nodules. No axillary, mediastinal, or hilar lymphadenopathy. Heart size is normal. There is no pericardial or pleural effusion identified. There are bilateral subpleural areas of ground-glass opacity which are nonspecific and could be related to atelectasis or could be infectious or inflammatory. Limited images of the upper abdomen demonstrate a nonobstructing right renal stone. There are no acute findings. No acute osseous abnormality. IMPRESSION: Subtle subpleural bilateral ground-glass opacities could be atelectasis or could be infectious or inflammatory. Reviewed, Interpreted and Dictated by Uma Pinon MD Transcribed by Aurora Prado Authenticated and [facility]
== END 2025-03-22 23:59 | disposition home or self-care (01) ==
PROVIDERS: PCP Physician Assistant; Visit Provider Physician Assistant
DX: I08.0 Rheumatic disorders of both mitral and aortic valves (principal); I11.9 Hypertensive heart disease without heart failure; I25.10 Atherosclerotic heart disease of native coronary artery without angina pectoris; E78.5 Hyperlipidemia, unspecified; G47.30 Sleep apnea, unspecified; R91.8 Other nonspecific abnormal finding of lung field; I28.1 Aneurysm of pulmonary artery
CPT/HCPCS: 71270; 82565; 84520; 93306; Q9957; Q9967

== ENCOUNTER 2025-03-30 08:00 | Outpatient (RCR) | payer MEDICARE, SELFPAY | END 2025-03-30 23:59 | disposition home or self-care (01) | LOC: PT 08:00 | PROVIDERS: PCP Physician Assistant; Visit Provider Family Medicine | DX: I89.0 Lymphedema, not elsewhere classified (principal) | CPT/HCPCS: 97140 ==